=== PATIENT | female | born 1945 ===

== ENCOUNTER 2017-06-06 14:11 | Inpatient (IN) | payer MEDICARE, OTHER ==
[2017-06-06 14:11] VITALS: PULSE 139; BMI 37.2
[2017-06-06] MEDS ORDERED: Cefepime IV 1 gm in Dextrose 1 GM/50 ML BAG IVPB STA (15:26)
[2017-06-06] MEDS ORDERED: metroNIDAZOLE IV 500 mg/100 ml 500 MG/100 ML BAG IV SCH (15:30)
[2017-06-06] MEDS ORDERED: Morphine 4 MG/ML VIAL ONE (15:42)
[2017-06-06 15:49] LABS: BASO % 0.7 % (0.0-2.0); EOS # 0.1 K/uL (0.0-0.7); HEMOGLOBIN 10.7 g/dL (11.0-16.0); LYMPH # 1.6 K/uL (1.0-4.3); LYMPH % 22.9 % (20.0-40.0); MEAN CELL VOLUME 95.9 fL (81.0-99.0); MEAN CORPUSCULAR HEMOGLOBIN 32.4 pg (27.0-31.0); MEAN CORPUSCULAR HGB CONC 33.8 g/dL (33.0-37.0); MEAN PLATELET VOLUME 8.7 fL (7.2-11.7); MONO # 0.4 K/uL (0.0-0.8); MONO % 6.5 % (0.0-10.0); NEUT # 4.6 K/uL (1.8-7.0); NEUT % 67.9 % (50.0-75.0); NRBC % 0.1 % (0.0-2.0); RBC 3.32 Mil/uL (3.80-5.20); RED CELL DISTRIBUTION WIDTH 13.7 % (11.5-14.5); WHITE BLOOD COUNT 6.8 K/uL (4.8-10.8)
[2017-06-06 15:51] LABS: URINE BILIRUBIN NEGATIVE (NEGATIVE); URINE BLOOD NEGATIVE (NEGATIVE); URINE CLARITY Clear (Clear); URINE COLOR Straw (YELLOW); URINE GLUCOSE (UA) NORMAL (Normal); URINE LEUKOCYTE ESTERASE NEG Leu/uL (Negative); URINE PROTEIN NEGATIVE (NEGATIVE); URINE UROBILINOGEN NORMAL mg/dL (0.2-1.0)
[2017-06-06 15:58] LABS: ALB/GLOB RATIO 0.9 (1.0-2.1); ALBUMIN 3.7 g/dL (3.5-5.0); CALCIUM 8.6 mg/dl (8.6-10.4); GFR AFRICAN-AMERICAN > 60; GFR NON-AFRICAN AMERICAN > 60
[2017-06-06 16:04] LABS: ALT/SGPT 18 U/L (9-52); AST/SGOT 34 U/L (14-36); BLOOD UREA NITROGEN 24 mg/dL (7-17)
[2017-06-06 16:10] LABS: B-TYPE NATRIURETIC PEPTIDE 342 pg/mL (0-900)
[2017-06-06] MEDS ORDERED: Enoxaparin 40 mg Syringe SC STA (16:37)
--- NOTE | 2017-06-06 16:48 | C.PDOC ---
History Of Present Illness 71 year old female presents to the emergency department for right greater than left leg swelling. Patient has a history of CHF, right greater than left leg lymph edema. Doctor Roger (former staff) is present at bedside. Time Seen by Provider: 06/06/17 15:09 Chief Complaint (Nursing): Abnormal Skin Integrity History Per: Patient History/Exam Limitations: no limitations Location Of Injury: Right: Leg (right greater than left leg swelling) Quality Of Symptoms: Swollen Past Medical History Vital Signs: Last Vital Signs Temp 98.7 F 06/06/17 18:20 Pulse 69 06/06/17 18:20 Resp 18 06/06/17 18:20 BP 131/61 06/06/17 18:20 Pulse Ox 97 06/06/17 18:20 - Medical History PMH: CHF, HTN, Chronic Kidney Disease Other PMH: Right greater than left lymph edema. Surgical History: Cholecystectomy Family History: States: No Known Family Hx - Social History Hx Alcohol Use: No Hx Substance Use: No - Immunization History Hx Tetanus Toxoid Vaccination: Yes Hx Influenza Vaccination: Yes Hx Pneumococcal Vaccination: Yes Review Of Systems Except As Marked, All Systems Reviewed And Found Negative. Musculoskeletal: Positive for: Leg Pain (swelling) Physical Exam - Physical Exam Appears: Other (obese elderly female) Skin: Other (excoriation on right leg, chronic dermatitic changes but not consistent with cellulitis) Neck: Other (jugular vein distention) Respiratory: Rales (bilaterally S3) Gastrointestinal/Abdominal: Other (obese) Extremity: Swelling (right greater than left swelling), Other (4/4 pitting edema ) Extremity: Right: Other (excoriation on right leg ) ED Course And Treatment - Laboratory Results Result Diagrams: 06/06/17 15:35 06/06/17 15:35 Lab Interpretation: Normal (trop neg, BNP neg.) ECG: Interpreted By Me ECG Rhythm: Sinus Rhythm ECG Interpretation: Normal Rate From EC O2 Sat by Pulse Oximetry: 97 Pulse Ox Interpretation: Normal - Radiology CXR: Interpreted by Me CXR Interpretation: Yes: Heart Size (+ megaly), Other (+CHF) Progress Note: lasix, abx, lovenox SQ Reevaluation Time: 16:50 Reassessment Condition: Improved - Physician Consult Information Outcome Of Conversation: 1630: dw Dr. Wilson Bishop, ok to admit, recommended additional lasix and Lovenox SQ pending US in AM to r/o DVT R leg. 1600: d/w Dr. Sandhu, ID consult, gave abx recommendations. Medical Decision Making Medical Decision Making: Plan: EKG BNP CMP Troponin CBC D-Dimer Partial Thromboplastin Time Prothrombin Time XR Chest One-View Maxipime 1gm in 50ml IV Flagyl 500mg in 100ml IV Lasix 40mg IVP Lovenox 70mg SC Morphine 4mg IVP Blood Culture Urinalysis Disposition Doctor Will See Patient In The: Hospital Counseled Patient/Family Regarding: Studies Performed, Diagnosis - Disposition Disposition: HOSPITALIZED Disposition Time: 16:53 Condition: GOOD - Clinical Impression Clinical Impression: CHF (congestive heart failure), Leg edema - Scribe Statement The provider has reviewed the documentation as recorded by the Scribe (Izaiah Verduzco) Provider Attestation: All medical record entries made by the Scribe were at my direction and personally dictated by me. I have reviewed the chart and agree that the record accurately reflects my personal performance of the history, physical exam, medical decision making, and the department course for this patient. I have also personally directed, reviewed, and agree with the discharge instructions and disposition.
[2017-06-06] MEDS ORDERED: Enoxaparin 80 mg Syringe ONE (16:53)
[2017-06-06 17:22] LABS: PROTHROMBIN TIME 11.1 SECONDS (9.7-12.2)
--- NOTE | 2017-06-06 17:42 | RAD ---
PROCEDURE: CHEST RADIOGRAPH, 1 VIEW HISTORY: SOB COMPARISON: Chest radiographs 01/16/2016. FINDINGS: LUNGS: AC opacity seen left hemithorax without air bronchograms or even pleural effusion grossly evident. This may be a function of technique and body habitus is a patient is slightly rotated toward the right. Clinically correlate further. PLEURA: No pneumothorax or pleural fluid seen. CARDIOVASCULAR: Prominent cardiac silhouette with mild pulmonary vascular congestion suggested. OSSEOUS STRUCTURES: No significant abnormalities. VISUALIZED UPPER ABDOMEN: Normal. OTHER FINDINGS: None. IMPRESSION: Pulmonary vascular congestion is suspected, and therefore is active CHF. Asymmetric left hemithorax opacity may reflect pulmonary alveolitis even though air bronchograms are not clearly evident and follow-up radiograph or chest CT should be considered.
[2017-06-06] MEDS: Metoprolol Succinate 25 mg XL Tab PO SCH (19:50)
[2017-06-06] MEDS: (Novolog) Insulin Aspart, Recombinant 100 u/ml 10 ml vial SC SCH (21:40)
--- NOTE | 2017-06-07 00:53 | HP ---
HISTORY OF PRESENT ILLNESS: A 71-year-old female was brought in with the history of increasing skin exfoliation in both the legs and increasing edema over the past two weeks. The patient has a history of congestive heart failure, paroxysmal atrial fibrillation, hypertension and diabetes. She has been followed by multiple physicians including building admin, scraper hand and myself. She has a previous catheterization done, which had shown no CAD and normal LV systolic function. She has a diastolic heart failure. For past two weeks, she was having increasing ankle edema and exfoliation of the skin with cellulitis, came to the emergency room and was subsequently admitted. PAST MEDICAL HISTORY: She has a history of hypertension, congestive heart failure diastolic, edema, recurrent admission for congestive heart failure, two episodes of atrial fibrillation, also had patient requiring intubation during the congestive heart failure, twice she was admitted in [facility]. She also has a cholecystectomy. PERSONAL HISTORY: She does not smoke, does not drink. ALLERGIES: DENIED. FAMILY HISTORY: She is , lives with her . Positive for diabetes. REVIEW OF SYSTEMS: GENERAL: Generalized weakness; even getting out of bed to chair is extremely short of breath. Excoriation of both legs, right more. NECK: No lymphadenopathy. PULMONARY: Shortness of breath. Cough. No hemoptysis. GI: Negative for hematemesis or melena. : Negative for hematuria. She has been seen by Dr. Franco, the scraper hand. MUSCULOSKELETAL: History of back pain and leg pains. NEUROLOGIC: Negative for TIAs and CVAs. PSYCH: Increasing confusion and loss of memory. SKIN: Increasing exfoliation in both the legs, cellulitis. PHYSICAL EXAMINATION: GENERAL: Shows elderly female who is conscious, alert, well oriented, obese; chronically sick looking, but in no distress. VITAL SIGNS: She is 5 feet and weighs 238 pounds. She has gained more than 20 pounds over the past two weeks. Her blood pressure is 157/76, heart rate of 103, respiratory rate of 18, temperature of 97.6. O2 sat is 98% on room air. HEENT: Head is normocephalic. Eyes, no pallor, no icterus. NECK: Supple. LUNGS: Shows bibasilar rales. HEART: PMI is not localized. S1, S2 is distant. No definite gallops or murmur. ABDOMEN: Distended. EXTREMITIES: 3 to 4+ pitting edema is noted. The legs are covered with dressing. NEUROLOGICAL: Awake, alert, and oriented x3. PSYCH: No evidence of depression. LABORATORY DATA: Hemoglobin is 10.7, BUN is 24, creatinine is 0.9. Blood sugar is 197. Chest x-ray had shown vascular congestion. EKG had shown normal sinus rhythm, within normal limits. Poor R-wave progression, may be lead misplacement. ASSESSMENT: A 71-year-old female with history of congestive heart failure, bilateral exfoliation of the skin, possible cellulitis. PLAN: To IV diuretics, bed rest, oxygen. Continue with the KRYSTAL inhibitors. Nephrology and ID followup. Care of plan was explained to the patient's . Wilson Bishop MD
[2017-06-07 08:18] LABS: CALCIUM 8.4 mg/dl (8.6-10.4)
[2017-06-07] MEDS: metOLazone 5 MG TAB PO SCH (10:09)
[2017-06-07] MEDS: Enoxaparin 80 mg Syringe SC SCH (10:40)
[2017-06-07] MEDS: (Novolog) Insulin Aspart, Recombinant 100 u/ml 10 ml vial SC SCH ×2 (10:41→21:25)
[2017-06-07] MEDS: Metoprolol Succinate 25 mg XL Tab PO SCH ×2 (10:41→17:20)
[2017-06-07] MEDS: Insulin Detemir 100 units/ml Vial (Levemir) SC SCH (10:42)
--- NOTE | 2017-06-07 13:19 | VASCLAB ---
PROCEDURE: Lower Extremity Venous Duplex Exam. HISTORY: ? R>L DVT PRIORS: Lower extremity ultrasound dated 01/13/2016. TECHNIQUE: Bilateral common femoral, femoral, popliteal and posterior tibial, peroneal and great saphenous veins were evaluated. Flow was assessed with color Doppler, compressibility, assessment of phasic flow and augmentation response. Report prepared by Dez Joy, RICCI, RVT FINDINGS: RIGHT: 1. Common Femoral Vein: 1.1. Compressibility - Fully compressible: Thrombus - None : Flow - Phasic: Augmentation -Normal: Reflux - None. 2. Femoral Vein: 2.1. Compressibility - Fully compressible: Thrombus - None : Flow - Phasic: Augmentation -Normal: Reflux - None. 3. Popliteal Vein: 3.1. Compressibility - Fully compressible: Thrombus - None : Flow - Phasic: Augmentation -Normal: Reflux - None. 4. Posterior Tibial Vein: 4.1. Compressibility - : Thrombus - : Flow - : Augmentation -: Reflux - . 5. Peroneal Vein: 5.1. Compressibility - : Thrombus - : Flow - : Augmentation -: Reflux - . 6. Great Saphenous Vein: 6.1. Compressibility - Fully compressible: Thrombus - None: Flow - Phasic: Augmentation - Normal: Reflux - None. LEFT: 1. Common Femoral Vein: 1.1. Compressibility - Fully compressible: Thrombus - None: Flow - Phasic: Augmentation -Normal: Reflux - None. 2. Femoral Vein: 2.1. Compressibility - Fully compressible: Thrombus - None: Flow - Phasic: Augmentation -Normal: Reflux - None. 3. Popliteal Vein: 3.1. Compressibility - Fully compressible: Thrombus - None : Flow - Phasic: Augmentation -Normal: Reflux - None. 4. Posterior Tibial Vein: 4.1. Compressibility - Fully compressible: Thrombus - None: Flow - Phasic: Augmentation -Normal: Reflux - None. 5. Peroneal Vein: 5.1. Compressibility - : Thrombus - : Flow - : Augmentation -: Reflux - . 6. Great Saphenous Vein: 6.1. Compressibility - Fully compressible: Thrombus - None: Flow - Phasic: Augmentation - Normal: Reflux - None. OTHER FINDINGS: Right: Due to bandage on the calf wound, the peroneal and posterior tibial vein were not visualized. Left: Due to swelling in the calf, the left peroneal vein was not visualized. IMPRESSION: Right: No evidence of deep or superficial vein thrombosis of the right lower extremity. Normal valve function noted of the right side. Left: No evidence of deep or superficial vein thrombosis of the left lower extremity. Normal valve function noted of the left side.
--- NOTE | 2017-06-07 13:50 | CP.PCM.PN ---
Subjective - Date & Time of Evaluation Date of Evaluation: 06/07/17 Time of Evaluation: 13:49 - Subjective Subjective: edema & cellulitis +.labs noted. Objective - Vital Signs/Intake and Output Vital Signs (last 24 hours): Temp Pulse Resp BP Pulse Ox 98.1 F 70 22 128/67 93 L 06/07/17 07:07 06/07/17 08:56 06/07/17 07:07 06/07/17 10:41 06/07/17 07:07 Intake and Output: 06/07/17 06/07/17 06:59 18:59 Intake Total 200 Output Total 800 Balance -600 - Medications Medications: Current Medications Aspirin (Ecotrin) 81 mg PO DAILY [facility] Last Admin: 06/07/17 10:41 Dose: 81 mg Enoxaparin Sodium (Lovenox) 70 mg SC DAILY [facility] Last Admin: 06/07/17 10:40 Dose: 70 mg Furosemide (Lasix) 40 mg IVP BID [facility] Last Admin: 06/07/17 10:41 Dose: 40 mg Metronidazole (Flagyl) 500 mg in 100 mls @ 100 mls/hr IV STAT [facility] PRN Reason: Protocol Last Admin: 06/06/17 17:41 Dose: 100 mls/hr Insulin Aspart (Novolog) 13 unit SC [facility] Last Admin: 06/07/17 10:41 Dose: 13 unit Insulin Detemir (Levemir) 14 unit SC DAILY [facility] Last Admin: 06/07/17 10:42 Dose: 14 unit Metolazone (Zaroxolyn) 5 mg PO MWF [facility] Last Admin: 06/07/17 10:09 Dose: 5 mg Metoprolol Succinate (Toprol Xl) 25 mg PO BID [facility] Last Admin: 06/07/17 10:41 Dose: 25 mg Oxycodone/Acetaminophen (Percocet 5/325 Mg Tab) 1 tab PO TID PRN PRN Reason: Pain, moderate (4-7) Stop: 06/10/17 10:01 - Labs Labs: 06/06/17 15:35 06/07/17 07:43 PT 11.1 SECONDS (9.7-12.2) 06/06/17 17:52 INR 1.0 06/06/17 17:52 APTT 30 SECONDS (21-34) 06/06/17 17:52 - Constitutional Appears: No Acute Distress, Chronically Ill - Head Exam Head Exam: NORMOCEPHALIC - Eye Exam Eye Exam: Normal appearance - ENT Exam ENT Exam: Normal Exam - Respiratory Exam Respiratory Exam: Rales - Cardiovascular Exam Cardiovascular Exam: REGULAR RHYTHM - GI/Abdominal Exam GI & Abdominal Exam: Soft - Extremities Exam Extremities Exam: Pedal Edema - Neurological Exam Neurological Exam: Alert, Oriented x3 Assessment and Plan - Assessment and Plan (Free Text) Assessment: edema better.will ct iv lasix.await id & vascular input.
--- NOTE | 2017-06-07 15:12 | CP.PCM.CON ---
History of Present Illness - History of Present Illness History of Present Illness: PGY-[address] Nunez. Mrs Duran is a 71 year old female with a past medical history of diabetes, diastolic CHF, lymphedema, HTN who presented to [facility] ER with right leg swelling. Vascular has been consulted to evaluate any vessel pathology that could be contributing to her LE ulcer formation. Some of the history was provided by her , Dr Duran who is a retired vascular surgeon. Patient states there is an ulcer in the anterior portion of her right leg which she correlates with worsening of her right leg swelling. She first noticed skin changes 3 years ago after she suffered a fall. She states the ulcer re-surfaced on the flight back from [facility] this past April. She noticed some weeping and drainage from ulcer site. She says in the past she had an ulcer at the same site which was treated with antibiotics and lasix. Her electrolysis needle operator is Dr Wilson Bishop and ID on the case is Dr Sandhu. PMHx: diabetes type II, diastolic CHF, lymphedema, HTN PSHx: Cholecystectomy Allergies: NKA FamHx: Denies SocialHx: Denies tobacco history, alcohol use, lives with at home Review of Systems - Constitutional Constitutional: absent: Chills, Fever - EENT Eyes: absent: Change in Vision - Cardiovascular Cardiovascular: Dyspnea on Exertion. absent: Chest Pain, Chest Pain at Rest, Diaphoresis - Respiratory Respiratory: Dyspnea on Exertion, Wheezing, Snoring - Gastrointestinal Gastrointestinal: absent: Abdominal Pain, Bloating, Constipation, Diarrhea - Genitourinary Genitourinary: absent: Dysuria - Integumentary Integumentary: Lesions, Skin Ulcer, Wounds. absent: Bleeding Lesions - Neurological Neurological: absent: Confusion Past Patient History - Past Medical History & Family History Past Medical History?: Yes - Past Social History Smoking Status: Never Smoked - CARDIAC Hx Congestive Heart Failure: Yes Hx Hypertension: Yes - PULMONARY Hx Respiratory Disorders: No - NEUROLOGICAL Hx Neurological Disorder: No - HEENT Hx HEENT Problems: No - RENAL Hx Chronic Kidney Disease: Yes - ENDOCRINE/METABOLIC Hx Endocrine Disorders: Yes Hx Diabetes Mellitus Type 2: Yes - HEMATOLOGICAL/ONCOLOGICAL Hx Blood Disorders: No - INTEGUMENTARY Hx Dermatological Problems: Yes Hx Cellulitis: Yes - MUSCULOSKELETAL/RHEUMATOLOGICAL Hx Musculoskeletal Disorders: Yes Hx Falls: No Hx Osteoarthritis: Yes - GASTROINTESTINAL Hx Gastrointestinal Disorders: No - GENITOURINARY/GYNECOLOGICAL Hx Genitourinary Disorders: No - PSYCHIATRIC Hx Substance Use: No - SURGICAL HISTORY Hx Cholecystectomy: Yes - ANESTHESIA Hx Anesthesia: Yes Hx Anesthesia Reactions: No Hx Malignant Hyperthermia: No Has any member of the family had a problem w/ anesthesia?: No Meds Allergies/Adverse Reactions: Allergies Allergy/AdvReac Type Severity Reaction Status Date / Time No Known Allergies Allergy Unverified 01/11/16 20:03 - Medications Medications: Current Medications Aspirin (Ecotrin) 81 mg PO DAILY [facility] Last Admin: 06/07/17 10:41 Dose: 81 mg Enoxaparin Sodium (Lovenox) 70 mg SC DAILY [facility] Last Admin: 06/07/17 10:40 Dose: 70 mg Furosemide (Lasix) 40 mg IVP BID [facility] Last Admin: 06/07/17 10:41 Dose: 40 mg Metronidazole (Flagyl) 500 mg in 100 mls @ 100 mls/hr IV STAT [facility] PRN Reason: Protocol Last Admin: 06/06/17 17:41 Dose: 100 mls/hr Insulin Aspart (Novolog) 13 unit SC [facility] Last Admin: 06/07/17 10:41 Dose: 13 unit Insulin Detemir (Levemir) 14 unit SC DAILY [facility] Last Admin: 06/07/17 10:42 Dose: 14 unit Metolazone (Zaroxolyn) 5 mg PO MWF [facility] Last Admin: 06/07/17 10:09 Dose: 5 mg Metoprolol Succinate (Toprol Xl) 25 mg PO BID [facility] Last Admin: 06/07/17 10:41 Dose: 25 mg Oxycodone/Acetaminophen (Percocet 5/325 Mg Tab) 1 tab PO TID PRN PRN Reason: Pain, moderate (4-7) Stop: 06/10/17 10:01 Physical Exam - Constitutional Appears: Well, No Acute Distress, Other (obese) - Head Exam Head Exam: ATRAUMATIC, NORMAL INSPECTION - Eye Exam Eye Exam: EOMI Pupil Exam: PERRL - ENT Exam ENT Exam: Mucous Membranes Moist - Neck Exam Neck exam: Positive for: Normal Inspection. Negative for: Lymphadenopathy, Tenderness - Respiratory Exam Respiratory Exam: Clear to Auscultation Bilateral, Rales, NORMAL BREATHING PATTERN. absent: Rhonchi, Wheezes - Cardiovascular Exam Cardiovascular Exam: REGULAR RHYTHM, JVD, +S1, +S2, Systolic Murmur. absent: Bradycardia, Tachycardia - GI/Abdominal Exam GI & Abdominal Exam: Normal Bowel Sounds, Soft. absent: Tenderness - Extremities Exam Extremities exam: Positive for: calf tenderness, normal capillary refill, pedal edema, tenderness, pedal pulses present Additional comments: excoriation on right leg, chronic dermatitic changes but not consistent with cellulitis right greater than left swelling 4/4 pitting edema - Neurological Exam Neurological exam: Oriented x3 - Skin Skin Exam: Warm Additional comments: as stated above Results - Vital Signs Recent Vital Signs: Last Vital Signs Temp 98.1 F 06/07/17 07:07 Pulse 70 06/07/17 08:56 Resp 22 06/07/17 07:07 BP 128/67 06/07/17 10:41 Pulse Ox 93 L 06/07/17 07:07 - Labs Result Diagrams: 06/06/17 15:35 06/07/17 07:43 Labs: Laboratory Results - last 24 hr 06/06/17 06/06/17 06/06/17 15:35 15:35 15:41 WBC 6.8 RBC 3.32 L Hgb 10.7 L Hct 31.8 L MCV 95.9 D MCH 32.4 H MCHC 33.8 RDW 13.7 Plt Count 285 MPV 8.7 Neut % (Auto) 67.9 Lymph % (Auto) 22.9 [place] % (Auto) 6.5 Eos % (Auto) 2.0 Baso % (Auto) 0.7 Neut # (Auto) 4.6 Lymph # (Auto) 1.6 Webster # (Auto) 0.4 Eos # (Auto) 0.1 Baso # (Auto) 0.0 PT INR APTT Sodium 139 Potassium 5.4 H Chloride 104 Carbon Dioxide 22 Anion Gap 18 BUN 24 H Creatinine 0.9 Est GFR ( Amer) > 60 Est GFR (Non-Af Amer) > 60 POC Glucose (mg/dL) Random Glucose 197 H Calcium 8.6 Total Bilirubin 0.7 AST 34 ALT 18 Alkaline Phosphatase 99 Troponin I < 0.0120 NT-Pro-B Natriuret Pep 342 Total Protein 8.0 Albumin 3.7 Globulin 4.3 H Albumin/Globulin Ratio 0.9 L Urine Color Straw Urine Clarity Clear Urine pH 5.0 Ur Specific [place] 1.006 Urine Protein Negative Urine Glucose (UA) Normal Urine Ketones Negative Urine Blood Negative Urine Nitrate Negative Urine Bilirubin Negative Urine Urobilinogen Normal Ur Leukocyte Esterase Neg Urine WBC (Auto) < 1 06/06/17 06/06/17 06/07/17 17:52 21:31 02:10 WBC RBC Hgb Hct MCV MCH MCHC RDW Plt Count MPV Neut % (Auto) Lymph % (Auto) [place] % (Auto) Eos % (Auto) Baso % (Auto) Neut # (Auto) Lymph # (Auto) [place] # (Auto) Eos # (Auto) Baso # (Auto) PT 11.1 INR 1.0 APTT 30 Sodium Potassium Chloride Carbon Dioxide Anion Gap BUN Creatinine Est GFR ( Amer) Est GFR (Non-Af Amer) POC Glucose (mg/dL) 204 H 92 Random Glucose Calcium Total Bilirubin AST ALT Alkaline Phosphatase Troponin I NT-Pro-B Natriuret Pep Total Protein Albumin Globulin Albumin/Globulin Ratio Urine Color Urine Clarity Urine pH Ur Specific [place] Urine Protein Urine Glucose (UA) Urine Ketones Urine Blood Urine Nitrate Urine Bilirubin Urine Urobilinogen Ur Leukocyte Esterase Urine WBC (Auto) 06/07/17 06/07/17 06/07/17 06:17 07:43 11:06 WBC RBC Hgb Hct MCV MCH MCHC RDW Plt Count MPV Neut % (Auto) Lymph % (Auto) [place] % (Auto) Eos % (Auto) Baso % (Auto) Neut # (Auto) Lymph # (Auto) [place] # (Auto) Eos # (Auto) Baso # (Auto) PT INR APTT Sodium 139 Potassium 5.0 Chloride 107 Carbon Dioxide 24 Anion Gap 14 BUN 24 H Creatinine 1.1 Est GFR ( Amer) 59 Est GFR (Non-Af Amer) 49 POC Glucose (mg/dL) 163 H 202 H Random Glucose 125 H Calcium 8.4 L Total Bilirubin AST ALT Alkaline Phosphatase Troponin I NT-Pro-B Natriuret Pep Total Protein Albumin Globulin Albumin/Globulin Ratio Urine Color Urine Clarity Urine pH Ur Specific [place] Urine Protein Urine Glucose (UA) Urine Ketones Urine Blood Urine Nitrate Urine Bilirubin Urine Urobilinogen Ur Leukocyte Esterase Urine WBC (Auto) Assessment & Plan (1) Leg edema Assessment and Plan: -Right leg edema with skin changes likely 2/2 to CHF -Duplex scan does not show any evidence of LE thrombosis -F/U arterial PVR of right lower extremity -Apply silvadene cream and wrap wound site tightly -Advise to apply compressive stocking -Continue diuresis -Continue abx Discussed with Dr Nunez. Status: Acute Priority: High
--- NOTE | 2017-06-07 18:20 | CARD ---
APPROVED REPORT EKG Measurement Heart [id number] SD [id number] <Conclusion> Normal sinus rhythm Baseline artifact
[2017-06-07] MEDS: Oxycodone/Acetaminophen 5/325 mg Tab PO PRN (22:10)
--- NOTE | 2017-06-08 08:16 | CP.PCM.PN ---
Subjective - Date & Time of Evaluation Date of Evaluation: 06/08/17 Time of Evaluation: 08:13 - Subjective Subjective: PGY-1 surgery progress note for Dr Nunez. No acute events noted overnight. Patient had lower right extremity wrapped in kerlix. She stated she still had pain. She was able to walk herself with a walker to the bathroom. She said her breathing has improved a little. Objective - Vital Signs/Intake and Output Vital Signs (last 24 hours): Temp Pulse Resp BP Pulse Ox 98.0 F 70 20 132/65 95 06/07/17 23:00 06/07/17 23:40 06/07/17 23:00 06/07/17 23:00 06/07/17 23:00 Intake and Output: 06/08/17 06/08/17 06:59 18:59 Intake Total 700 Output Total 1526 Balance -826 - Medications Medications: Current Medications Aspirin (Ecotrin) 81 mg PO DAILY [facility] Last Admin: 06/07/17 10:41 Dose: 81 mg Collagenase (Santyl) 1 gm TOP DAILY [facility] Enoxaparin Sodium (Lovenox) 70 mg SC DAILY [facility] Last Admin: 06/07/17 10:40 Dose: 70 mg Furosemide (Lasix) 40 mg IVP BID [facility] Last Admin: 06/07/17 17:20 Dose: 40 mg Insulin Aspart (Novolog) 13 unit SC [facility] Last Admin: 06/07/17 21:25 Dose: 13 unit Insulin Detemir (Levemir) 14 unit SC DAILY [facility] Last Admin: 06/07/17 10:42 Dose: 14 unit Metolazone (Zaroxolyn) 5 mg PO MWF [facility] Last Admin: 06/07/17 10:09 Dose: 5 mg Metoprolol Succinate (Toprol Xl) 25 mg PO BID [facility] Last Admin: 06/07/17 17:20 Dose: 25 mg Oxycodone/Acetaminophen (Percocet 5/325 Mg Tab) 1 tab PO TID PRN PRN Reason: Pain, moderate (4-7) Stop: 06/10/17 10:01 Last Admin: 06/07/17 22:10 Dose: 1 tab - Labs Labs: 06/06/17 15:35 06/07/17 07:43 PT 11.1 SECONDS (9.7-12.2) 06/06/17 17:52 INR 1.0 06/06/17 17:52 APTT 30 SECONDS (21-34) 06/06/17 17:52 - Additional Findings Additional findings: - Constitutional Appears: Well, No Acute Distress, Other (obese) - Head Exam Head Exam: ATRAUMATIC, NORMAL INSPECTION - Eye Exam Eye Exam: EOMI Pupil Exam: PERRL - ENT Exam ENT Exam: Mucous Membranes Moist - Neck Exam Neck exam: Positive for: Normal Inspection. Negative for: Lymphadenopathy, Tenderness - Respiratory Exam Respiratory Exam: Clear to Auscultation Bilateral, Rales, NORMAL BREATHING PATTERN. absent: Rhonchi, Wheezes - Cardiovascular Exam Cardiovascular Exam: REGULAR RHYTHM, JVD, +S1, +S2, Systolic Murmur. absent: Bradycardia, Tachycardia - GI/Abdominal Exam GI & Abdominal Exam: Normal Bowel Sounds, Soft. absent: Tenderness - Extremities Exam Extremities exam: Positive for: calf tenderness, normal capillary refill, pedal edema, tenderness, pedal pulses present Additional comments: excoriation on right leg, chronic dermatitic changes but not consistent with cellulitis right greater than left swelling 4/4 pitting edema - Neurological Exam Neurological exam: Oriented x3 - Skin Skin Exam: Warm Additional comments: as stated above Assessment and Plan (1) Leg edema Status: Acute - Assessment and Plan (Free Text) Assessment: (1) Leg edema Assessment and Plan: -Right leg edema with skin changes likely 2/2 to CHF -Duplex scan does not show any evidence of LE thrombosis -F/U arterial PVR of right lower extremity -Apply silvadene cream and wrap wound site tightly -Advise to apply compressive stocking -Continue diuresis -Continue abx Discussed with Dr Nunez. Status: Acute Priority: High
[2017-06-08 08:20] LABS: BLOOD UREA NITROGEN 22 mg/dL (7-17); CALCIUM 8.5 mg/dl (8.6-10.4); GFR AFRICAN-AMERICAN > 60; GFR NON-AFRICAN AMERICAN 55
[2017-06-08] MEDS ORDERED: Collagenase 250 Units/gm Ointment(30 gm) TOP SCH (10:00)
--- NOTE | 2017-06-08 10:02 | CP.PCM.CON ---
History of Present Illness - History of Present Illness History of Present Illness: Mrs Duran is a 71 year old female with a past medical history of diabetes, diastolic CHF, lymphedema, HTN who presented to [facility] ER with right leg swelling. Vascular has been consulted to evaluate any vessel pathology that could be contributing to her LE ulcer formation. Patient states there is an ulcer in the anterior portion of her right leg which she correlates with worsening of her right leg swelling. She first noticed skin changes 3 years ago after she suffered a fall. She states the ulcer re-surfaced on the flight back from [facility] this past April. She noticed some weeping and drainage from ulcer site. She says in the past she had an ulcer at the same site which was treated with antibiotics and lasix. Her eligibility supervisor is Dr Wilson Bishop and ID on the case is Dr Sandhu. No prior hx of kidney disease No proteinuria on ua Duplex LE neg for dvt PMHx: diabetes type II, diastolic CHF, lymphedema, HTN PSHx: Cholecystectomy Allergies: NKA FamHx: Denies SocialHx: Denies tobacco history, alcohol use, lives with at home Review of Systems - Review of Systems All systems: reviewed and no additional remarkable complaints except - Constitutional Constitutional: Fatigue - Cardiovascular Cardiovascular: Dyspnea on Exertion, Leg Edema - Respiratory Respiratory: Dyspnea - Genitourinary Genitourinary: absent: As Per HPI, Change in Urinary Stream, Difficulty Urinating, Dysuria, Flank Pain, Hematuria, Pyuria, Nocturia, Urinary Incontinence, Urinary Frequency, Urinary Hesitance, Urinary Urgency, Voiding Freq/Small Amts, Freq UTI, Hx Renal/Bladder Calculi, Hx /Renal Surgery, Bladder Distension, Other Past Patient History - Past Medical History & Family History Past Medical History?: Yes - Past Social History Smoking Status: Never Smoked - CARDIAC Hx Congestive Heart Failure: Yes Hx Hypertension: Yes - PULMONARY Hx Respiratory Disorders: No - NEUROLOGICAL Hx Neurological Disorder: No - HEENT Hx HEENT Problems: No - RENAL Hx Chronic Kidney Disease: Yes - ENDOCRINE/METABOLIC Hx Endocrine Disorders: Yes Hx Diabetes Mellitus Type 2: Yes - HEMATOLOGICAL/ONCOLOGICAL Hx Blood Disorders: No - INTEGUMENTARY Hx Dermatological Problems: Yes Hx Cellulitis: Yes - MUSCULOSKELETAL/RHEUMATOLOGICAL Hx Musculoskeletal Disorders: Yes Hx Falls: No Hx Osteoarthritis: Yes - GASTROINTESTINAL Hx Gastrointestinal Disorders: No - GENITOURINARY/GYNECOLOGICAL Hx Genitourinary Disorders: No - PSYCHIATRIC Hx Substance Use: No - SURGICAL HISTORY Hx Cholecystectomy: Yes - ANESTHESIA Hx Anesthesia: Yes Hx Anesthesia Reactions: No Hx Malignant Hyperthermia: No Has any member of the family had a problem w/ anesthesia?: No Meds Allergies/Adverse Reactions: Allergies Allergy/AdvReac Type Severity Reaction Status Date / Time No Known Allergies Allergy Unverified 01/11/16 20:03 - Medications Medications: Current Medications Aspirin (Ecotrin) 81 mg PO DAILY [facility] Last Admin: 06/07/17 10:41 Dose: 81 mg Collagenase (Santyl) 1 gm TOP DAILY [facility] Enoxaparin Sodium (Lovenox) 70 mg SC DAILY [facility] Last Admin: 06/07/17 10:40 Dose: 70 mg Furosemide (Lasix) 40 mg IVP BID [facility] Last Admin: 06/07/17 17:20 Dose: 40 mg Insulin Aspart (Novolog) 13 unit SC [facility] Last Admin: 06/07/17 21:25 Dose: 13 unit Insulin Detemir (Levemir) 14 unit SC DAILY [facility] Last Admin: 06/07/17 10:42 Dose: 14 unit Metolazone (Zaroxolyn) 5 mg PO MWF [facility] Last Admin: 06/07/17 10:09 Dose: 5 mg Metoprolol Succinate (Toprol Xl) 25 mg PO BID [facility] Last Admin: 06/07/17 17:20 Dose: 25 mg Oxycodone/Acetaminophen (Percocet 5/325 Mg Tab) 1 tab PO TID PRN PRN Reason: Pain, moderate (4-7) Stop: 06/10/17 10:01 Last Admin: 06/07/17 22:10 Dose: 1 tab Physical Exam - Constitutional Appears: No Acute Distress, Chronically Ill (obese) - Head Exam Head Exam: NORMAL INSPECTION, NORMOCEPHALIC - Eye Exam Eye Exam: Normal appearance, PERRL - ENT Exam ENT Exam: Mucous Membranes Moist, Normal Exam - Neck Exam Neck exam: Positive for: Normal Inspection - Respiratory Exam Respiratory Exam: Decreased Breath Sounds, NORMAL BREATHING PATTERN - Cardiovascular Exam Cardiovascular Exam: REGULAR RHYTHM, RRR - GI/Abdominal Exam GI & Abdominal Exam: Diminished Bowel Sounds, Distended, Soft - Extremities Exam Extremities exam: Positive for: pedal edema (b/l edema, R>L) - Neurological Exam Neurological exam: Alert, Oriented x3 - Psychiatric Exam Psychiatric exam: Normal Affect, Normal Mood - Skin Skin Exam: Normal Color, Warm Results - Vital Signs Recent Vital Signs: Last Vital Signs Temp 97.6 F 06/08/17 08:35 Pulse 68 06/08/17 08:35 Resp 20 06/08/17 08:35 BP 127/65 06/08/17 08:35 Pulse Ox 96 06/08/17 08:35 - Labs Result Diagrams: 06/06/17 15:35 06/08/17 07:56 Labs: Laboratory Results - last 24 hr 06/07/17 06/07/17 06/07/17 11:06 16:10 21:02 Sodium Potassium Chloride Carbon Dioxide Anion Gap BUN Creatinine Est GFR ( Amer) Est GFR (Non-Af Amer) POC Glucose (mg/dL) 202 H 210 H 124 H Random Glucose Calcium 06/08/17 06/08/17 06/08/17 01:59 06:14 07:56 Sodium 140 Potassium 4.5 Chloride 104 Carbon Dioxide 26 Anion Gap 14 BUN 22 H Creatinine 1.0 Est GFR ( Amer) > 60 Est GFR (Non-Af Amer) 55 POC Glucose (mg/dL) 104 128 H Random Glucose 103 Calcium 8.5 L Assessment & Plan (1) Congestive heart failure (CHF) Status: Acute (2) Leg edema Status: Acute Priority: High (3) Atrial fibrillation with rapid ventricular response Status: Acute - Assessment and Plan (Free Text) Assessment: No proteinuria to suggest renal cause of leg swelling, completely benign ua and nl bmp. check spep and urine microalbumin maintain diuretics per primary team follow chems closely
[2017-06-08] MEDS: Insulin Detemir 100 units/ml Vial (Levemir) SC SCH (10:45)
[2017-06-08] MEDS: (Novolog) Insulin Aspart, Recombinant 100 u/ml 10 ml vial SC SCH ×2 (10:45→22:12)
[2017-06-08] MEDS: Metoprolol Succinate 25 mg XL Tab PO SCH ×2 (10:45→17:16)
[2017-06-08] MEDS: Enoxaparin 80 mg Syringe SC SCH (10:46)
--- NOTE | 2017-06-08 12:18 | CP.PCM.PN ---
Subjective - Date & Time of Evaluation Date of Evaluation: 06/08/17 Time of Evaluation: 12:17 - Subjective Subjective: better.edema less.lost 4 lbs. Objective - Vital Signs/Intake and Output Vital Signs (last 24 hours): Temp Pulse Resp BP Pulse Ox 97.6 F 68 20 123/71 96 06/08/17 08:35 06/08/17 12:03 06/08/17 08:35 06/08/17 10:45 06/08/17 12:03 Intake and Output: 06/08/17 06/08/17 06:59 18:59 Intake Total 700 Output Total 1526 Balance -826 - Medications Medications: Current Medications Aspirin (Ecotrin) 81 mg PO DAILY [facility] Last Admin: 06/08/17 10:45 Dose: 81 mg Collagenase (Santyl) 1 gm TOP DAILY [facility] Enoxaparin Sodium (Lovenox) 70 mg SC DAILY [facility] Last Admin: 06/08/17 10:46 Dose: 70 mg Furosemide (Lasix) 40 mg IVP BID [facility] Last Admin: 06/08/17 10:45 Dose: 40 mg Insulin Aspart (Novolog) 13 unit SC [facility] Last Admin: 06/08/17 10:45 Dose: 13 unit Insulin Detemir (Levemir) 14 unit SC DAILY [facility] Last Admin: 06/08/17 10:45 Dose: 14 unit Metolazone (Zaroxolyn) 5 mg PO MWF [facility] Last Admin: 06/07/17 10:09 Dose: 5 mg Metoprolol Succinate (Toprol Xl) 25 mg PO BID [facility] Last Admin: 06/08/17 10:45 Dose: 25 mg Oxycodone/Acetaminophen (Percocet 5/325 Mg Tab) 1 tab PO TID PRN PRN Reason: Pain, moderate (4-7) Stop: 06/10/17 10:01 Last Admin: 06/07/17 22:10 Dose: 1 tab - Labs Labs: 06/06/17 15:35 06/08/17 07:56 PT 11.1 SECONDS (9.7-12.2) 06/06/17 17:52 INR 1.0 06/06/17 17:52 APTT 30 SECONDS (21-34) 06/06/17 17:52 - Constitutional Appears: No Acute Distress, Chronically Ill - Head Exam Head Exam: NORMOCEPHALIC - ENT Exam ENT Exam: Normal Exam - Respiratory Exam Respiratory Exam: Clear to Ausculation Bilateral - Cardiovascular Exam Cardiovascular Exam: REGULAR RHYTHM, Murmur - GI/Abdominal Exam GI & Abdominal Exam: Soft - Extremities Exam Extremities Exam: Pedal Edema - Neurological Exam Neurological Exam: Alert, Oriented x3 Assessment and Plan - Assessment and Plan (Free Text) Plan: chf,acute on chronica diastolic,better.labs are good.will have dr chasity velazco evaluate.ct antibiotic per dr paige/
[2017-06-08] MEDS ORDERED: Silver Sulfadiazine 1% Cream (20 gm) TOP SCH (12:45)
[2017-06-08] MEDS ORDERED: Clotrimazole/Betamethasone Cream(15 gm) TOP SCH ×2 (12:45→14:15)
--- NOTE | 2017-06-08 12:49 | CP.PCM.CON ---
<Anthony Gregg - Last Filed: 06/08/17 12:45> History of Present Illness - History of Present Illness History of Present Illness: Podiatry Consult Note- Dr. Bishop 71 year old female een at bedside concerning with right leg swelling and itching. Pt is known to attending Dr. Bishop. Patient has had a chronic 3 year history with an ulcer in the anterior portion of her right leg, which she correlates with worsening of her right leg swelling. First presented with skin changes toe the area 3 years ago after she suffered a fall. She states the ulcer re-surfaced on the flight back from [facility] this past April. She noticed some weeping and drainage from ulcer site. She says in the past she had an ulcer at the same site which was treated with antibiotics and lasix. She reports no pain to the area, only itching to eh area of skin changes, absent burning. She deneis recent fever, chills, nausea, vomiting, diarrhea, chest pain , & shortness of breath. PMHx: diabetes type II, diastolic CHF, lymphedema, HTN PSHx: Cholecystectomy Allergies: NKA FamHx: Denies SocialHx: Denies tobacco history, alcohol use, lives with at home Review of Systems - Review of Systems All systems: reviewed and no additional remarkable complaints except Past Patient History - Past Medical History & Family History Past Medical History?: Yes - Past Social History Smoking Status: Never Smoked - CARDIAC Hx Congestive Heart Failure: Yes Hx Hypertension: Yes - PULMONARY Hx Respiratory Disorders: No - NEUROLOGICAL Hx Neurological Disorder: No - HEENT Hx HEENT Problems: No - RENAL Hx Chronic Kidney Disease: Yes - ENDOCRINE/METABOLIC Hx Endocrine Disorders: Yes Hx Diabetes Mellitus Type 2: Yes - HEMATOLOGICAL/ONCOLOGICAL Hx Blood Disorders: No - INTEGUMENTARY Hx Dermatological Problems: Yes Hx Cellulitis: Yes - MUSCULOSKELETAL/RHEUMATOLOGICAL Hx Musculoskeletal Disorders: Yes Hx Falls: No Hx Osteoarthritis: Yes - GASTROINTESTINAL Hx Gastrointestinal Disorders: No - GENITOURINARY/GYNECOLOGICAL Hx Genitourinary Disorders: No - PSYCHIATRIC Hx Substance Use: No - SURGICAL HISTORY Hx Cholecystectomy: Yes - ANESTHESIA Hx Anesthesia: Yes Hx Anesthesia Reactions: No Hx Malignant Hyperthermia: No Has any member of the family had a problem w/ anesthesia?: No Meds Allergies/Adverse Reactions: Allergies Allergy/AdvReac Type Severity Reaction Status Date / Time No Known Allergies Allergy Unverified 01/11/16 20:03 - Medications Medications: Current Medications Aspirin (Ecotrin) 81 mg PO DAILY [facility] Last Admin: 06/08/17 10:45 Dose: 81 mg Betamethasone/Clotrimazole (Lotrisone) 1 gm TOP DAILY [facility] Enoxaparin Sodium (Lovenox) 70 mg SC DAILY [facility] Last Admin: 06/08/17 10:46 Dose: 70 mg Furosemide (Lasix) 40 mg IVP BID [facility] Last Admin: 06/08/17 10:45 Dose: 40 mg Insulin Aspart (Novolog) 13 unit SC [facility] Last Admin: 06/08/17 10:45 Dose: 13 unit Insulin Detemir (Levemir) 14 unit SC DAILY [facility] Last Admin: 06/08/17 10:45 Dose: 14 unit Metolazone (Zaroxolyn) 5 mg PO MWF [facility] Last Admin: 06/07/17 10:09 Dose: 5 mg Metoprolol Succinate (Toprol Xl) 25 mg PO BID [facility] Last Admin: 06/08/17 10:45 Dose: 25 mg Oxycodone/Acetaminophen (Percocet 5/325 Mg Tab) 1 tab PO TID PRN PRN Reason: Pain, moderate (4-7) Stop: 06/10/17 10:01 Last Admin: 06/07/17 22:10 Dose: 1 tab Silver Sulfadiazine (Silvadene 1% 20 Gm) 1 ea TOP DAILY [facility] Physical Exam - Constitutional Appears: Well, Non-toxic, No Acute Distress - Extremities Exam Additional comments: Right leg focused exam. ACC: Right distal leg +1 pitting edema noted. Rubor on dependency noted. Anterior leg superficial ulceration extending over an area of 5.4 x 7cm with a 100% granular wound base. Sloughing epidermal tissue removed with blunt methods. Day-wound erythema, mild serous exudate. Absnet mal-odor, no undemring of magins. Neuro vascular status intact to right foot with pedal sensation intact, 2/4 DP and PT pulses and CRF to all digits <3 seconds within normal limits. - Neurological Exam Neurological exam: Alert, Oriented x3 - Psychiatric Exam Psychiatric exam: Normal Affect, Normal Mood Results - Vital Signs Recent Vital Signs: Last Vital Signs Temp 97.6 F 06/08/17 08:35 Pulse 68 06/08/17 12:03 Resp 20 06/08/17 08:35 BP 123/71 06/08/17 10:45 Pulse Ox 96 06/08/17 12:03 - Labs Result Diagrams: 06/06/17 15:35 06/08/17 07:56 Labs: Laboratory Results - last 24 hr 06/07/17 06/07/17 06/08/17 16:10 21:02 01:59 Sodium Potassium Chloride Carbon Dioxide Anion Gap BUN Creatinine Est GFR ( Amer) Est GFR (Non-Af Amer) POC Glucose (mg/dL) 210 H 124 H 104 Random Glucose Calcium 06/08/17 06/08/17 06:14 07:56 Sodium 140 Potassium 4.5 Chloride 104 Carbon Dioxide 26 Anion Gap 14 BUN 22 H Creatinine 1.0 Est GFR ( Amer) > 60 Est GFR (Non-Af Amer) 55 POC Glucose (mg/dL) 128 H Random Glucose 103 Calcium 8.5 L Assessment & Plan - Assessment and Plan (Free Text) Assessment: 71 year old female with right anterior leg superficial venous stasis ulceration. Plan: Pt seen and evaluated at bedside with attending, Dr. Bishop, present. Attending endorsed the following plan. Chart, and vitals reviewed. D/C Santyl for application to lower extremity. 100% granular base noted. Ordered Lotrosone & Silvedene cream. To be applied to ulceration bases in a 1:1 mixture daily with KRYSTAL bandade. Site cleansed with saline. Dressed with Xeroform, DSD, & KRYSTAL wrap. Podiatry will continue to follow while inhouse. - Date & Time Date: 06/08/17 Time: 12:40 <Jacobo Bishop - Last Filed: 06/08/17 13:11> Meds - Medications Medications: Current Medications Aspirin (Ecotrin) 81 mg PO DAILY [facility] Last Admin: 06/08/17 10:45 Dose: 81 mg Betamethasone/Clotrimazole (Lotrisone) 1 gm TOP DAILY [facility] Enoxaparin Sodium (Lovenox) 70 mg SC DAILY [facility] Last Admin: 06/08/17 10:46 Dose: 70 mg Furosemide (Lasix) 40 mg IVP BID [facility] Last Admin: 06/08/17 10:45 Dose: 40 mg Insulin Aspart (Novolog) 13 unit SC [facility] Last Admin: 06/08/17 10:45 Dose: 13 unit Insulin Detemir (Levemir) 14 unit SC DAILY [facility] Last Admin: 06/08/17 10:45 Dose: 14 unit Metolazone (Zaroxolyn) 5 mg PO MWF [facility] Last Admin: 06/07/17 10:09 Dose: 5 mg Metoprolol Succinate (Toprol Xl) 25 mg PO BID [facility] Last Admin: 06/08/17 10:45 Dose: 25 mg Oxycodone/Acetaminophen (Percocet 5/325 Mg Tab) 1 tab PO TID PRN PRN Reason: Pain, moderate (4-7) Stop: 06/10/17 10:01 Last Admin: 06/07/17 22:10 Dose: 1 tab Silver Sulfadiazine (Silvadene 1% 20 Gm) 1 ea TOP DAILY [facility] Results - Vital Signs Recent Vital Signs: Last Vital Signs Temp 97.6 F 06/08/17 08:35 Pulse 68 06/08/17 12:03 Resp 20 06/08/17 08:35 BP 123/71 06/08/17 10:45 Pulse Ox 96 06/08/17 12:03 - Labs Result Diagrams: 06/06/17 15:35 06/08/17 07:56 Labs: Laboratory Results - last 24 hr 06/07/17 06/07/17 06/08/17 16:10 21:02 01:59 Sodium Potassium Chloride Carbon Dioxide Anion Gap BUN Creatinine Est GFR ( Amer) Est GFR (Non-Af Amer) POC Glucose (mg/dL) 210 H 124 H 104 Random Glucose Calcium 06/08/17 06/08/17 06:14 07:56 Sodium 140 Potassium 4.5 Chloride 104 Carbon Dioxide 26 Anion Gap 14 BUN 22 H Creatinine 1.0 Est GFR ( Amer) > 60 Est GFR (Non-Af Amer) 55 POC Glucose (mg/dL) 128 H Random Glucose 103 Calcium 8.5 L Attending/Attestation - Attestation I have personally seen and examined this patient.: Yes I have fully participated in the care of the patient.: Yes I have reviewed all pertinent clinical information: Yes Notes (Text): 06/08/17 13:11 Pt seen at bedside with resident. Will order wound care for patient. Pt to keep right foot elevated at rest.
--- NOTE | 2017-06-08 13:54 | VASCLAB ---
STUDY DESCRIPTION: HISTORY: skin necrosis of right LE PRIORS: None. TECHNIQUE: Pulse volume recording waveforms and segmental pressures of bilateral lower extremities at multiple levels were obtained. Ankle Brachial Indices (ABIs) were calculated. Report prepared by RICCI Rose, RVT RIGHT LOWER EXTREMITY: * Brachial artery: Pressure - 121 mmHg. * High thigh: Pressure - mmHg: Ratio - : PVR waveform - Pulsatile * Low thigh: Pressure - mmHg: Ratio - PVR waveform: Pulsatile * Calf: Pressure - 158 mmHg: Ratio - 1.22 PVR waveform: Pulsatile * Posterior tibial Artery: Pressure - 147 mmHg: Ratio - 1.13 PVR waveform: Pulsatile * Dorsalis pedis Artery: Pressure - 157 mmHg: Ratio - 1.21 PVR waveform: Pulsatile * Great toe: Pressure - 92 mmHg: Ratio - 0.71 PVR waveform: Pulsatile Ankle brachial index (AMAURY): 1.21 LEFT LOWER EXTREMITY: * Brachial artery: Pressure - 130 mmHg. * High thigh: Pressure - mmHg: Ratio - : PVR waveform - Pulsatile * Low thigh: Pressure - mmHg: Ratio - PVR waveform: Pulsatile * Calf: Pressure - 170 mmHg: Ratio - 1.31 PVR waveform: Pulsatile * Posterior tibial Artery: Pressure - 141 mmHg: Ratio - 1.08 PVR waveform: Pulsatile * Dorsalis pedis Artery: Pressure - 181 mmHg: Ratio - 1.39 PVR waveform: Pulsatile * Great toe: Pressure - 122 mmHg: Ratio - 0.94 PVR waveform: Pulsatile Ankle brachial index (AMAURY): 1.39 OTHER FINDINGS: Right: Left: IMPRESSION: Right: There was no evidence of hemodynamically significant arterial insufficiency in the right lower extremity. Left: There was no evidence of hemodynamically significant arterial insufficiency in the left lower extremity.
[2017-06-08] MEDS: Silver Sulfadiazine 1% Cream (20 gm) TOP SCH (14:30)
[2017-06-08] MEDS: Oxycodone/Acetaminophen 5/325 mg Tab PO PRN (16:07)
--- NOTE | 2017-06-08 20:06 | CP.PCM.CON ---
History of Present Illness - History of Present Illness History of Present Illness: INFECTIOUS DISEASE CONSULTATION OTTONIEL RANGEL MD, FACP 5T 570.B 06/07/2017 5:00 PM CHART REVIEWED PT EXAMINED CASE DISCUSSED WITH PIPPA LARA, DR HULL, AND PMD DR GILBERTO MOTA THIS PATIENT IS A 71 YEAR OLD FEMALE ADMITTED FROM HOME WITH PROGRESSIVE NON HEALING CELLULITIS, AGGREVATED BY A LONG FLIGHT BACK FROM [place], WITH 2ND LYMPHEDEMA. AN INFECTIOUS DISEASE CONSULTATION WAS REQUESTED 2ND NON HEALING CELLULITIS IN A DM PT. PMHX: DM CHF CHRONIC LYMPHEDEMA HTN S/P CHOLECYSTETOMY S/P INFECTION LEFT FOOT/LEG 3 YEARS AGO-NO ULCER PRESENTLY OSTEOARTHRITIS ETC NO KNOWN ALLERGIES NO TOBACCO NO ETOH FAMILY HX NOT APPLICABLE VSS: WITHDRAWN TODAY AT 5 PM DECREASED MOVEMENT SUPPLE NECL CHEST DECREASED BREATH SOUNDS BOTH BASES COR RR ABD SOFT NON TENDER EXT CHRONIC LYMPHEDEMA ABRASION 2ND EDEMA WITH 2ND CELLULITIS NO OPEN ULCERS PRESENTLY APPRECIATED ON HER LEFT LEG NEURO NO FOCAL FINDINGS WITHDRAWN THIS PM IMPRESSION: CELLULITIS AND 2ND LYMPHEDEMA OF HER LEGS IN A DM WILL REQUIRE IV AB TREATMENT RX; MAXIPIME AND FLAGYL WILL NEED TOPICAL TREATMENT OTTONIEL RANGEL MD, FACP Review of Systems - Review of Systems Systems not reviewed;Unavailable: Other (WITHDRAWN AND NOT MOVING HER EXTREMITES 2ND PAIN) - Constitutional Constitutional: Daytime Sleepiness, Fatigue, Malaise, Weight Gain, Weakness - Cardiovascular Cardiovascular: Diaphoresis, Dyspnea on Exertion, Edema, Leg Edema, Orthopnea, Pedal Edema, Rapid Heart Rate. absent: Chest Pain - Respiratory Respiratory: Dyspnea on Exertion - Gastrointestinal Gastrointestinal: absent: Abdominal Pain, Change in Bowel Habits, Diarrhea, Dysphagia, Fecal Incontinence, Melena, Odynophagia - Genitourinary Genitourinary: Change in Urinary Stream - Musculoskeletal Musculoskeletal: Muscle Weakness, Myalgias, Radiating Pain into Limb, Stiffness - Neurological Neurological: Lack of Coordination, Tingling, Weakness - Psychiatric Psychiatric: Anxiety Past Patient History - Tetanus Immunizations Tetanus Immunization: Unknown - Past Medical History & Family History Past Medical History?: Yes - Past Social History Smoking Status: Never Smoked Chewing Tobacco Use: No Cigar Use: No Alcohol: None Drugs: Denies Home Situation {Lives}: With Family - CARDIAC Hx Cardiac Disorders: Yes Hx Congestive Heart Failure: Yes Hx Hypertension: Yes - PULMONARY Hx Respiratory Disorders: No - NEUROLOGICAL Hx Neurological Disorder: No - HEENT Hx HEENT Problems: No - RENAL Hx Chronic Kidney Disease: Yes - ENDOCRINE/METABOLIC Hx Endocrine Disorders: Yes Hx Diabetes Mellitus Type 2: Yes - HEMATOLOGICAL/ONCOLOGICAL Hx Blood Disorders: No - INTEGUMENTARY Hx Dermatological Problems: Yes Hx Cellulitis: Yes - MUSCULOSKELETAL/RHEUMATOLOGICAL Hx Musculoskeletal Disorders: Yes Hx Falls: No Hx Osteoarthritis: Yes - GASTROINTESTINAL Hx Gastrointestinal Disorders: No - GENITOURINARY/GYNECOLOGICAL Hx Genitourinary Disorders: No - PSYCHIATRIC Hx Substance Use: No Other/Comment: WITHDRAWN - SURGICAL HISTORY Hx Surgeries: Yes Hx Cholecystectomy: Yes - ANESTHESIA Hx Anesthesia: Yes Hx Anesthesia Reactions: No Hx Malignant Hyperthermia: No Has any member of the family had a problem w/ anesthesia?: No Meds Allergies/Adverse Reactions: Allergies Allergy/AdvReac Type Severity Reaction Status Date / Time No Known Allergies Allergy Unverified 01/11/16 20:03 - Medications Medications: Current Medications Aspirin (Ecotrin) 81 mg PO DAILY [facility] Last Admin: 06/08/17 10:45 Dose: 81 mg Betamethasone/Clotrimazole (Lotrisone) 1 gm TOP DAILY [facility] Enoxaparin Sodium (Lovenox) 70 mg SC DAILY [facility] Last Admin: 06/08/17 10:46 Dose: 70 mg Furosemide (Lasix) 40 mg IVP BID [facility] Last Admin: 06/08/17 17:16 Dose: 40 mg Insulin Aspart (Novolog) 13 unit SC AMHS [facility] Last Admin: 06/08/17 10:45 Dose: 13 unit Insulin Detemir (Levemir) 14 unit SC DAILY [facility] Last Admin: 06/08/17 10:45 Dose: 14 unit Metolazone (Zaroxolyn) 5 mg PO MWF [facility] Last Admin: 06/07/17 10:09 Dose: 5 mg Metoprolol Succinate (Toprol Xl) 25 mg PO BID [facility] Last Admin: 06/08/17 17:16 Dose: 25 mg Oxycodone/Acetaminophen (Percocet 5/325 Mg Tab) 1 tab PO TID PRN PRN Reason: Pain, moderate (4-7) Stop: 06/10/17 10:01 Last Admin: 06/08/17 16:07 Dose: 1 tab Silver Sulfadiazine (Silvadene 1% 20 Gm) 1 ea TOP DAILY [facility] Last Admin: 06/08/17 14:30 Dose: 1 applic Physical Exam - Constitutional Appears: Non-toxic - Head Exam Head Exam: NORMAL INSPECTION - Eye Exam Eye Exam: Normal appearance - ENT Exam ENT Exam: Mucous Membranes Dry - Neck Exam Neck exam: Positive for: Normal Inspection - Respiratory Exam Respiratory Exam: Decreased Breath Sounds, NORMAL BREATHING PATTERN - Cardiovascular Exam Cardiovascular Exam: REGULAR RHYTHM - GI/Abdominal Exam GI & Abdominal Exam: Soft. absent: Rigid - Rectal Exam Rectal Exam: Deferred - Neurological Exam Neurological exam: Alert, Oriented x3 - Psychiatric Exam Psychiatric exam: Anxious - Skin Skin Exam: Warm Results - Vital Signs Recent Vital Signs: Last Vital Signs Temp 97.7 F 06/08/17 15:00 Pulse 82 06/08/17 16:42 Resp 20 06/08/17 15:00 BP 128/73 06/08/17 17:16 Pulse Ox 96 06/08/17 15:00 - Labs Result Diagrams: 06/06/17 15:35 06/08/17 07:56 Labs: Laboratory Results - last 24 hr 06/07/17 06/08/17 06/08/17 21:02 01:59 06:14 Sodium Potassium Chloride Carbon Dioxide Anion Gap BUN Creatinine Est GFR ( Amer) Est GFR (Non-Af Amer) POC Glucose (mg/dL) 124 H 104 128 H Random Glucose Calcium Urine Microalbumin 06/08/17 06/08/17 06/08/17 07:56 11:40 15:19 Sodium 140 Potassium 4.5 Chloride 104 Carbon Dioxide 26 Anion Gap 14 BUN 22 H Creatinine 1.0 Est GFR ( Amer) > 60 Est GFR (Non-Af Amer) 55 POC Glucose (mg/dL) 164 H Random Glucose 103 Calcium 8.5 L Urine Microalbumin 30.4 H 06/08/17 16:08 Sodium Potassium Chloride Carbon Dioxide Anion Gap BUN Creatinine Est GFR ( Amer) Est GFR (Non-Af Amer) POC Glucose (mg/dL) 170 H Random Glucose Calcium Urine Microalbumin Assessment & Plan (1) Cellulitis of left lower leg Status: Acute Priority: High Comment: CEFEPIME AND FLAGYL (2) Congestive heart failure (CHF) Status: Acute Priority: Medium (3) Atrial fibrillation with rapid ventricular response Status: Chronic Priority: Medium (4) Dvt femoral (deep venous thrombosis) Status: Suspected Priority: Low
--- NOTE | 2017-06-08 20:17 | CP.PCM.PN ---
Subjective - Date & Time of Evaluation Date of Evaluation: 06/08/17 Time of Evaluation: 20:15 - Subjective Subjective: INFECTIOUS DISEASE PROGRESS NOTE OTTONIEL RANGEL MD, FACP 5T 570-B CHART REVIEWED PT EXAMINED CASE DISCUSSED WITH DR HULL AND UPPER CASER CLINICALLY MORE AWAKE AND ALERT TODAY PUT OUT 3,000 OF FLUID, LOST4-6 LBS WOULD CONTINUE RX PLAN IV CASTILLO, ADD FLORASTOR LIMIT TOPICAL STEROID CREAMS Objective - Vital Signs/Intake and Output Vital Signs (last 24 hours): Temp Pulse Resp BP Pulse Ox 97.7 F 72 20 128/73 96 06/08/17 15:00 06/08/17 19:58 06/08/17 15:00 06/08/17 17:16 06/08/17 15:00 Intake and Output: 06/08/17 06/09/17 18:59 06:59 Intake Total 500 Output Total 1100 Balance -600 - Medications Medications: Current Medications Aspirin (Ecotrin) 81 mg PO DAILY [facility] Last Admin: 06/08/17 10:45 Dose: 81 mg Betamethasone/Clotrimazole (Lotrisone) 1 gm TOP DAILY [facility] Enoxaparin Sodium (Lovenox) 70 mg SC DAILY [facility] Last Admin: 06/08/17 10:46 Dose: 70 mg Furosemide (Lasix) 40 mg IVP BID [facility] Last Admin: 06/08/17 17:16 Dose: 40 mg Insulin Aspart (Novolog) 13 unit SC AMHS [facility] Last Admin: 06/08/17 10:45 Dose: 13 unit Insulin Detemir (Levemir) 14 unit SC DAILY [facility] Last Admin: 06/08/17 10:45 Dose: 14 unit Metolazone (Zaroxolyn) 5 mg PO MWF [facility] Last Admin: 06/07/17 10:09 Dose: 5 mg Metoprolol Succinate (Toprol Xl) 25 mg PO BID [facility] Last Admin: 06/08/17 17:16 Dose: 25 mg Oxycodone/Acetaminophen (Percocet 5/325 Mg Tab) 1 tab PO TID PRN PRN Reason: Pain, moderate (4-7) Stop: 06/10/17 10:01 Last Admin: 06/08/17 16:07 Dose: 1 tab Silver Sulfadiazine (Silvadene 1% 20 Gm) 1 ea TOP DAILY [facility] Last Admin: 06/08/17 14:30 Dose: 1 applic - Labs Labs: 06/06/17 15:35 06/08/17 07:56 PT 11.1 SECONDS (9.7-12.2) 06/06/17 17:52 INR 1.0 06/06/17 17:52 APTT 30 SECONDS (21-34) 06/06/17 17:52 - Constitutional Appears: Non-toxic - Head Exam Head Exam: NORMAL INSPECTION - Eye Exam Eye Exam: Normal appearance Pupil Exam: NORMAL ACCOMODATION - ENT Exam ENT Exam: Mucous Membranes Moist - Neck Exam Neck Exam: Normal Inspection - Respiratory Exam Respiratory Exam: Clear to Ausculation Bilateral - Cardiovascular Exam Cardiovascular Exam: Tachycardia - GI/Abdominal Exam GI & Abdominal Exam: Soft, Normal Bowel Sounds. absent: Tenderness - Rectal Exam Rectal Exam: Deferred - Neurological Exam Neurological Exam: Alert, Awake - Psychiatric Exam Psychiatric exam: Normal Mood - Skin Skin Exam: Normal Color, Warm Assessment and Plan (1) Cellulitis of left lower leg Status: Acute (2) Congestive heart failure (CHF) Status: Acute (3) Atrial fibrillation with rapid ventricular response Status: Chronic (4) Dvt femoral (deep venous thrombosis) Status: Suspected
[2017-06-09] MEDS: Oxycodone/Acetaminophen 5/325 mg Tab PO PRN (01:06)
[2017-06-09 07:53] LABS: BLOOD UREA NITROGEN 24 mg/dL (7-17); CALCIUM 8.1 mg/dl (8.6-10.4); GFR AFRICAN-AMERICAN > 60; GFR NON-AFRICAN AMERICAN 55
[2017-06-09] MEDS: Saccharomyces Boulardi 250 mg Cap PO SCH ×2 (09:52→17:45)
[2017-06-09] MEDS: metOLazone 5 MG TAB PO SCH (09:52)
[2017-06-09] MEDS: Metoprolol Succinate 25 mg XL Tab PO SCH ×2 (10:50→17:45)
[2017-06-09] MEDS: Insulin Detemir 100 units/ml Vial (Levemir) SC SCH (10:51)
[2017-06-09] MEDS: Enoxaparin 80 mg Syringe SC SCH (10:51)
[2017-06-09] MEDS: (Novolog) Insulin Aspart, Recombinant 100 u/ml 10 ml vial SC SCH ×2 (10:51→21:39)
[2017-06-09] MEDS: Clotrimazole/Betamethasone Cream(15 gm) TOP SCH (10:51)
[2017-06-09] MEDS: Silver Sulfadiazine 1% Cream (20 gm) TOP SCH (10:57)
--- NOTE | 2017-06-09 11:11 | CP.PCM.PN ---
Subjective - Date & Time of Evaluation Date of Evaluation: 06/09/17 Time of Evaluation: 11:09 - Subjective Subjective: seen and examined chart reviewed trying to sleep, in bed monsivais in place reports improvement in swelling no n/v/d/sob/dizziness/cp/weakness/numbness Objective - Vital Signs/Intake and Output Vital Signs (last 24 hours): Temp Pulse Resp BP Pulse Ox 97.8 F 71 18 143/66 95 06/09/17 07:00 06/09/17 07:00 06/09/17 07:00 06/09/17 10:50 06/09/17 07:00 Intake and Output: 06/09/17 06/09/17 06:59 18:59 Intake Total 500 Output Total 1200 Balance -700 - Medications Medications: Current Medications Aspirin (Ecotrin) 81 mg PO DAILY [facility] Last Admin: 06/09/17 10:50 Dose: 81 mg Betamethasone/Clotrimazole (Lotrisone) 1 gm TOP DAILY [facility] Last Admin: 06/09/17 10:51 Dose: 1 applic Enoxaparin Sodium (Lovenox) 70 mg SC DAILY [facility] Last Admin: 06/09/17 10:51 Dose: 70 mg Furosemide (Lasix) 40 mg IVP BID [facility] Last Admin: 06/09/17 10:50 Dose: 40 mg Insulin Aspart (Novolog) 13 unit SC [facility] Last Admin: 06/08/17 22:12 Dose: 13 unit Insulin Detemir (Levemir) 14 unit SC DAILY [facility] Last Admin: 06/08/17 10:45 Dose: 14 unit Metolazone (Zaroxolyn) 5 mg PO MWF [facility] Last Admin: 06/09/17 09:52 Dose: 5 mg Metoprolol Succinate (Toprol Xl) 25 mg PO BID [facility] Last Admin: 06/09/17 10:50 Dose: 25 mg Oxycodone/Acetaminophen (Percocet 5/325 Mg Tab) 1 tab PO TID PRN PRN Reason: Pain, moderate (4-7) Stop: 06/10/17 10:01 Last Admin: 06/09/17 01:06 Dose: 1 tab [facility]ii [facility] Last Admin: 06/09/17 09:52 Dose: 500 mg Silver Sulfadiazine (Silvadene 1% 20 Gm) 1 ea TOP DAILY [facility] Last Admin: 06/09/17 10:57 Dose: 1 applic - Labs Labs: 06/06/17 15:35 06/09/17 07:32 PT 11.1 SECONDS (9.7-12.2) 06/06/17 17:52 INR 1.0 06/06/17 17:52 APTT 30 SECONDS (21-34) 06/06/17 17:52 - Constitutional Appears: No Acute Distress, Chronically Ill (obese) - Head Exam Head Exam: NORMAL INSPECTION, NORMOCEPHALIC - Eye Exam Eye Exam: Normal appearance Pupil Exam: PERRL - ENT Exam ENT Exam: Mucous Membranes Moist, Normal Exam - Neck Exam Neck Exam: Full ROM, Normal Inspection - Respiratory Exam Respiratory Exam: Decreased Breath Sounds (at bases), NORMAL BREATHING PATTERN - Cardiovascular Exam Cardiovascular Exam: REGULAR RHYTHM, RRR - GI/Abdominal Exam GI & Abdominal Exam: Distended, Soft - Extremities Exam Extremities Exam: Normal Inspection (b/l LE edema R>L, erythema) - Neurological Exam Neurological Exam: Alert, Awake, Oriented x3 - Psychiatric Exam Psychiatric exam: Normal Affect, Normal Mood Assessment and Plan (1) Congestive heart failure (CHF) Status: Acute (2) Leg edema Status: Acute (3) Atrial fibrillation with rapid ventricular response Status: Chronic - Assessment and Plan (Free Text) Assessment: maintain diuretics, likely edema as well as chronic stasis which is unlikely to improve w/ diuresis daily [facility] podiatry management for diabetic foot ulcer
--- NOTE | 2017-06-09 12:07 | CP.PCM.PN ---
Subjective - Date & Time of Evaluation Date of Evaluation: 06/09/17 Time of Evaluation: 12:05 - Subjective Subjective: Pt seen at bedside for right leg redness and swelling. Pt took of the dressing at night. Right leg shows edema and erythema with no weeping noted today. Cont with 1:1 mixture of silvadene and lotrisone to right leg bid with compression dressing for a few more days. Abx as ID. Objective - Vital Signs/Intake and Output Vital Signs (last 24 hours): Temp Pulse Resp BP Pulse Ox 97.8 F 71 18 143/66 95 06/09/17 07:00 06/09/17 07:00 06/09/17 07:00 06/09/17 10:50 06/09/17 07:00 Intake and Output: 06/09/17 06/09/17 06:59 18:59 Intake Total 500 Output Total 1200 Balance -700 - Medications Medications: Current Medications Aspirin (Ecotrin) 81 mg PO DAILY [facility] Last Admin: 06/09/17 10:50 Dose: 81 mg Betamethasone/Clotrimazole (Lotrisone) 1 gm TOP DAILY [facility] Last Admin: 06/09/17 10:51 Dose: 1 applic Enoxaparin Sodium (Lovenox) 70 mg SC DAILY [facility] Last Admin: 06/09/17 10:51 Dose: 70 mg Furosemide (Lasix) 40 mg IVP BID [facility] Last Admin: 06/09/17 10:50 Dose: 40 mg Insulin Aspart (Novolog) 13 unit SC [facility]HS [facility] Last Admin: 06/09/17 10:51 Dose: 13 unit Insulin Detemir (Levemir) 14 unit SC DAILY [facility] Last Admin: 06/09/17 10:51 Dose: 14 unit Metolazone (Zaroxolyn) 5 mg PO MWF [facility] Last Admin: 06/09/17 09:52 Dose: 5 mg Metoprolol Succinate (Toprol Xl) 25 mg PO BID [facility] Last Admin: 06/09/17 10:50 Dose: 25 mg Oxycodone/Acetaminophen (Percocet 5/325 Mg Tab) 1 tab PO TID PRN PRN Reason: Pain, moderate (4-7) Stop: 06/10/17 10:01 Last Admin: 06/09/17 01:06 Dose: 1 tab [facility]ii [facility] Last Admin: 06/09/17 09:52 Dose: 500 mg Silver Sulfadiazine (Silvadene 1% 20 Gm) 1 ea TOP DAILY [facility] Last Admin: 06/09/17 10:57 Dose: 1 applic - Labs Labs: 06/06/17 15:35 06/09/17 07:32 PT 11.1 SECONDS (9.7-12.2) 06/06/17 17:52 INR 1.0 06/06/17 17:52 APTT 30 SECONDS (21-34) 06/06/17 17:52
--- NOTE | 2017-06-09 12:34 | CP.PCM.PN ---
Subjective - Date & Time of Evaluation Date of Evaluation: 06/09/17 Time of Evaluation: 12:32 - Subjective Subjective: cellulitis getting better.wt is not reliable.feels good.nsr. Objective - Vital Signs/Intake and Output Vital Signs (last 24 hours): Temp Pulse Resp BP Pulse Ox 97.8 F 71 18 143/66 95 06/09/17 07:00 06/09/17 07:00 06/09/17 07:00 06/09/17 10:50 06/09/17 07:00 Intake and Output: 06/09/17 06/09/17 06:59 18:59 Intake Total 500 Output Total 1200 Balance -700 - Medications Medications: Current Medications Aspirin (Ecotrin) 81 mg PO DAILY [facility] Last Admin: 06/09/17 10:50 Dose: 81 mg Betamethasone/Clotrimazole (Lotrisone) 1 gm TOP DAILY [facility] Last Admin: 06/09/17 10:51 Dose: 1 applic Enoxaparin Sodium (Lovenox) 70 mg SC DAILY [facility] Last Admin: 06/09/17 10:51 Dose: 70 mg Furosemide (Lasix) 40 mg IVP BID [facility] Last Admin: 06/09/17 10:50 Dose: 40 mg Cefepime HCl (Maxipime Iv 1 Gm Premix) 1 gm in 50 mls @ 100 mls/hr IVPB Q24H [facility] PRN Reason: Protocol Metronidazole (Flagyl) 500 mg in 100 mls @ 100 mls/hr IVPB Q8 [facility] PRN Reason: Protocol Insulin Aspart (Novolog) 13 unit SC [facility] Last Admin: 06/09/17 10:51 Dose: 13 unit Insulin Detemir (Levemir) 14 unit SC DAILY [facility] Last Admin: 06/09/17 10:51 Dose: 14 unit Metolazone (Zaroxolyn) 5 mg PO MWF [facility] Last Admin: 06/09/17 09:52 Dose: 5 mg Metoprolol Succinate (Toprol Xl) 25 mg PO BID [facility] Last Admin: 06/09/17 10:50 Dose: 25 mg Oxycodone/Acetaminophen (Percocet 5/325 Mg Tab) 1 tab PO TID PRN PRN Reason: Pain, moderate (4-7) Stop: 06/10/17 10:01 Last Admin: 06/09/17 01:06 Dose: 1 tab Saccharomyces Boulardii (Florastor) 500 mg PO BIDPC [facility] Last Admin: 06/09/17 09:52 Dose: 500 mg Silver Sulfadiazine (Silvadene 1% 20 Gm) 1 ea TOP DAILY [facility] Last Admin: 06/09/17 10:57 Dose: 1 applic - Labs Labs: 06/06/17 15:35 06/09/17 07:32 PT 11.1 SECONDS (9.7-12.2) 06/06/17 17:52 INR 1.0 06/06/17 17:52 APTT 30 SECONDS (21-34) 06/06/17 17:52 - Constitutional Appears: No Acute Distress, Chronically Ill - Eye Exam Eye Exam: Normal appearance - Neck Exam Neck Exam: Normal Inspection - Respiratory Exam Respiratory Exam: Clear to Ausculation Bilateral - Cardiovascular Exam Cardiovascular Exam: REGULAR RHYTHM - GI/Abdominal Exam GI & Abdominal Exam: Soft - Neurological Exam Neurological Exam: Alert, Oriented x3 Assessment and Plan - Assessment and Plan (Free Text) Plan: edema 7 cellulitis is getting better.labs are good.iv antibiotics resumed.
--- NOTE | 2017-06-09 12:34 | CP.PCM.PN ---
Subjective - Date & Time of Evaluation Date of Evaluation: 06/09/17 Time of Evaluation: 12:31 - Subjective Subjective: PT SEEN BY DR. Alisha MOTA. DISCUSSED WITH HIM REGARDING DISPOSITION. ALSO DISCUSSED WITH DR. MOTA THE WOUND CX RESULTS FROM THIS MORNING. I AM UNSURE IF NURSING NOTIFIED ID. PER DR. MOTA HE HAS ALREADY PLACED A CALL TO DR. RANGEL AND WILL DISCUSS WITH HIM THE IV ABX RECOMMENDATIONS AND DURATION, BUT FOR NOW TO CONTINUE WHAT PT IS ON. I NOTIFIED DR. MOTA THAT PT IS NOT ON ANY IV NOR PO ABX. MAXIPIME AND FLAGYL ONLY GIVEN IN THE ED; CONTINUE THESE TWO IV ABX FOR NOW PER DR. MOTA. ORDERS PLACED. NO FURTHER ORDERS AT THIS TIME. Objective - Vital Signs/Intake and Output Vital Signs (last 24 hours): Temp Pulse Resp BP Pulse Ox 97.8 F 71 18 143/66 95 06/09/17 07:00 06/09/17 07:00 06/09/17 07:00 06/09/17 10:50 06/09/17 07:00 Intake and Output: 06/09/17 06/09/17 06:59 18:59 Intake Total 500 Output Total 1200 Balance -700 - Medications Medications: Current Medications Aspirin (Ecotrin) 81 mg PO DAILY [facility] Last Admin: 06/09/17 10:50 Dose: 81 mg Betamethasone/Clotrimazole (Lotrisone) 1 gm TOP DAILY [facility] Last Admin: 06/09/17 10:51 Dose: 1 applic Enoxaparin Sodium (Lovenox) 70 mg SC DAILY [facility] Last Admin: 06/09/17 10:51 Dose: 70 mg Furosemide (Lasix) 40 mg IVP BID [facility] Last Admin: 06/09/17 10:50 Dose: 40 mg Insulin Aspart (Novolog) 13 unit SC AMHS [facility] Last Admin: 06/09/17 10:51 Dose: 13 unit Insulin Detemir (Levemir) 14 unit SC DAILY [facility] Last Admin: 06/09/17 10:51 Dose: 14 unit Metolazone (Zaroxolyn) 5 mg PO MWF [facility] Last Admin: 06/09/17 09:52 Dose: 5 mg Metoprolol Succinate (Toprol Xl) 25 mg PO BID [facility] Last Admin: 06/09/17 10:50 Dose: 25 mg Oxycodone/Acetaminophen (Percocet 5/325 Mg Tab) 1 tab PO TID PRN PRN Reason: Pain, moderate (4-7) Stop: 06/10/17 10:01 Last Admin: 06/09/17 01:06 Dose: 1 tab Saccharomyces Boulardii (Florastor) 500 mg PO BIDPC [facility] Last Admin: 06/09/17 09:52 Dose: 500 mg Silver Sulfadiazine (Silvadene 1% 20 Gm) 1 ea TOP DAILY [facility] Last Admin: 06/09/17 10:57 Dose: 1 applic - Labs Labs: 06/06/17 15:35 06/09/17 07:32 PT 11.1 SECONDS (9.7-12.2) 06/06/17 17:52 INR 1.0 06/06/17 17:52 APTT 30 SECONDS (21-34) 06/06/17 17:52
--- NOTE | 2017-06-09 13:10 | CP.PCM.PN ---
Subjective - Date & Time of Evaluation Date of Evaluation: 06/09/17 Time of Evaluation: 13:07 - Subjective Subjective: PGY-1 surgery progress note for Dr Nunez. No acute events noted overnight. Patient had lower right extremity wrapped in kerlix. She appeared to be much better today. She was ambulating to the bathroom and stated the pain in her right leg was less than yesterday. Objective - Vital Signs/Intake and Output Vital Signs (last 24 hours): Temp Pulse Resp BP Pulse Ox 97.8 F 71 18 143/66 95 06/09/17 07:00 06/09/17 07:00 06/09/17 07:00 06/09/17 10:50 06/09/17 07:00 Intake and Output: 06/09/17 06/09/17 06:59 18:59 Intake Total 500 Output Total 1200 Balance -700 - Medications Medications: Current Medications Aspirin (Ecotrin) 81 mg PO DAILY [facility] Last Admin: 06/09/17 10:50 Dose: 81 mg Betamethasone/Clotrimazole (Lotrisone) 1 gm TOP DAILY [facility] Last Admin: 06/09/17 10:51 Dose: 1 applic Enoxaparin Sodium (Lovenox) 70 mg SC DAILY [facility] Last Admin: 06/09/17 10:51 Dose: 70 mg Furosemide (Lasix) 40 mg IVP BID [facility] Last Admin: 06/09/17 10:50 Dose: 40 mg Cefepime HCl (Maxipime Iv 1 Gm Premix) 1 gm in 50 mls @ 100 mls/hr IVPB Q24H [facility] PRN Reason: Protocol Metronidazole (Flagyl) 500 mg in 100 mls @ 100 mls/hr IVPB Q8 [facility] PRN Reason: Protocol Insulin Aspart (Novolog) 13 unit SC [facility] Last Admin: 06/09/17 10:51 Dose: 13 unit Insulin Detemir (Levemir) 14 unit SC DAILY [facility] Last Admin: 06/09/17 10:51 Dose: 14 unit Metolazone (Zaroxolyn) 5 mg PO MWF [facility] Last Admin: 06/09/17 09:52 Dose: 5 mg Metoprolol Succinate (Toprol Xl) 25 mg PO BID [facility] Last Admin: 06/09/17 10:50 Dose: 25 mg Oxycodone/Acetaminophen (Percocet 5/325 Mg Tab) 1 tab PO TID PRN PRN Reason: Pain, moderate (4-7) Stop: 06/10/17 10:01 Last Admin: 06/09/17 01:06 Dose: 1 tab Saccharomyces Boulardii (Florastor) 500 mg PO BIDPC [facility] Last Admin: 06/09/17 09:52 Dose: 500 mg Silver Sulfadiazine (Silvadene 1% 20 Gm) 1 ea TOP DAILY [facility] Last Admin: 06/09/17 10:57 Dose: 1 applic - Labs Labs: 06/06/17 15:35 06/09/17 07:32 PT 11.1 SECONDS (9.7-12.2) 06/06/17 17:52 INR 1.0 06/06/17 17:52 APTT 30 SECONDS (21-34) 06/06/17 17:52 - Additional Findings Additional findings: - Constitutional Appears: Well, No Acute Distress, Other (obese) - Head Exam Head Exam: ATRAUMATIC, NORMAL INSPECTION - Eye Exam Eye Exam: EOMI Pupil Exam: PERRL - ENT Exam ENT Exam: Mucous Membranes Moist - Neck Exam Neck exam: Positive for: Normal Inspection. Negative for: Lymphadenopathy, Tenderness - Respiratory Exam Respiratory Exam: Clear to Auscultation Bilateral, Rales, NORMAL BREATHING PATTERN. absent: Rhonchi, Wheezes - Cardiovascular Exam Cardiovascular Exam: REGULAR RHYTHM, JVD, +S1, +S2, Systolic Murmur. absent: Bradycardia, Tachycardia - GI/Abdominal Exam GI & Abdominal Exam: Normal Bowel Sounds, Soft. absent: Tenderness - Extremities Exam Extremities exam: Positive for: calf tenderness, normal capillary refill, pedal edema, tenderness, pedal pulses present Additional comments: excoriation on right leg, chronic dermatitic changes but not consistent with cellulitis right greater than left swelling 4/4 pitting edema - Neurological Exam Neurological exam: Oriented x3 - Skin Skin Exam: Warm Additional comments: as stated above Assessment and Plan (1) Leg edema Status: Acute - Assessment and Plan (Free Text) Assessment: (1) Leg edema Assessment and Plan: -Right leg edema with skin changes likely 2/2 to CHF -Duplex scan does not show any evidence of LE thrombosis -Arterial PVR of right lower extremity did not show any evidence of hemodynamically significant arterial insufficiency in the right or left LE -No surgical intervention planned at this time. We will continue to follow while patient in house. -Apply silvadene cream and wrap wound site tightly -Advise to apply compressive stocking -Continue diuresis -Continue abx Discussed with Dr Nunez. Status: Acute Priority: High
[2017-06-09] MEDS: metroNIDAZOLE IV 500 mg/100 ml 500 MG/100 ML BAG IVPB SCH ×2 (15:54→21:33)
[2017-06-09] MEDS: Cefepime IV 1 gm in Dextrose 1 GM/50 ML BAG IVPB SCH (21:03)
[2017-06-10] MEDS: metroNIDAZOLE IV 500 mg/100 ml 500 MG/100 ML BAG IVPB SCH ×3 (06:02→21:24)
--- NOTE | 2017-06-10 08:20 | CP.PCM.PN ---
Subjective - Date & Time of Evaluation Date of Evaluation: 06/10/17 Time of Evaluation: 08:17 - Subjective Subjective: seen and examined no events chart reviewed no labs today pt diuresing well on iv lasix, monsivais in place feels swelling improved, able to walk to bathroom no n/v/d/sob/dizziness/cp/f/c/rash/headache/weakness/numbness Objective - Vital Signs/Intake and Output Vital Signs (last 24 hours): Temp Pulse Resp BP Pulse Ox 98.2 F 75 18 145/69 95 06/10/17 07:05 06/10/17 07:05 06/10/17 07:05 06/10/17 07:05 06/10/17 07:05 Intake and Output: 06/10/17 06/10/17 06:59 18:59 Intake Total 650 Output Total 1700 Balance -1050 - Medications Medications: Current Medications Aspirin (Ecotrin) 81 mg PO DAILY [facility] Last Admin: 06/09/17 10:50 Dose: 81 mg Betamethasone/Clotrimazole (Lotrisone) 1 gm TOP DAILY [facility] Last Admin: 06/09/17 10:51 Dose: 1 applic Enoxaparin Sodium (Lovenox) 70 mg SC DAILY [facility] Last Admin: 06/09/17 10:51 Dose: 70 mg Furosemide (Lasix) 40 mg IVP BID [facility] Last Admin: 06/09/17 17:45 Dose: 40 mg Cefepime HCl (Maxipime Iv 1 Gm Premix) 1 gm in 50 mls @ 100 mls/hr IVPB Q24H [facility] PRN Reason: Protocol Last Admin: 06/09/17 21:03 Dose: 100 mls/hr Metronidazole (Flagyl) 500 mg in 100 mls @ 100 mls/hr IVPB Q8 [facility] PRN Reason: Protocol Last Admin: 06/10/17 06:02 Dose: 100 mls/hr Insulin Aspart (Novolog) 13 unit SC [facility] Last Admin: 06/09/17 21:39 Dose: 13 unit Insulin Detemir (Levemir) 14 unit SC DAILY [facility] Last Admin: 06/09/17 10:51 Dose: 14 unit Metolazone (Zaroxolyn) 5 mg PO MWF [facility] Last Admin: 06/09/17 09:52 Dose: 5 mg Metoprolol Succinate (Toprol Xl) 25 mg PO BID [facility] Last Admin: 06/09/17 17:45 Dose: 25 mg Oxycodone/Acetaminophen (Percocet 5/325 Mg Tab) 1 tab PO TID PRN PRN Reason: Pain, moderate (4-7) Stop: 06/10/17 10:01 Last Admin: 06/09/17 01:06 Dose: 1 tab Saccharomyces Boulardii (Florastor) 500 mg PO BIDPC [facility] Last Admin: 06/09/17 17:45 Dose: 500 mg Silver Sulfadiazine (Silvadene 1% 20 Gm) 1 ea TOP DAILY [facility] Last Admin: 06/09/17 10:57 Dose: 1 applic - Labs Labs: 06/06/17 15:35 06/09/17 07:32 PT 11.1 SECONDS (9.7-12.2) 06/06/17 17:52 INR 1.0 06/06/17 17:52 APTT 30 SECONDS (21-34) 06/06/17 17:52 - Constitutional Appears: Non-toxic (obese), No Acute Distress - Head Exam Head Exam: NORMAL INSPECTION, NORMOCEPHALIC - Eye Exam Eye Exam: Normal appearance Pupil Exam: PERRL - ENT Exam ENT Exam: Mucous Membranes Moist, Normal Exam - Neck Exam Neck Exam: Full ROM, Normal Inspection - Respiratory Exam Respiratory Exam: Clear to Ausculation Bilateral, NORMAL BREATHING PATTERN - Cardiovascular Exam Cardiovascular Exam: REGULAR RHYTHM, RRR - GI/Abdominal Exam GI & Abdominal Exam: Distended, Soft - Extremities Exam Extremities Exam: Pedal Edema (b/l edema r>L, rt foot in dressing) - Neurological Exam Neurological Exam: Alert, Awake, Oriented x3 - Psychiatric Exam Psychiatric exam: Normal Affect, Normal Mood - Skin Skin Exam: Normal Color. absent: Intact Assessment and Plan (1) Congestive heart failure (CHF) Status: Acute (2) Leg edema Status: Acute (3) Atrial fibrillation with rapid ventricular response Status: Chronic - Assessment and Plan (Free Text) Assessment: recommend daily labs on iv diuretics recommend dc monsivais when possible antibiotics and wound care pt/ot
--- NOTE | 2017-06-10 08:33 | RAD ---
HISTORY: COMPARISON: 06/06/2017. TECHNIQUE: Chest PA and lateral FINDINGS: LINES AND TUBES: None. LUNG AND PLEURA: The lungs are well inflated. There is moderate pulmonary venous congestion and mild interstitial pulmonary edema. There is bibasilar atelectasis. No focal consolidation. HEART AND MEDIASTINUM: The heart is not enlarged. The hilar and mediastinal contours are within normal limits. SKELETAL STRUCTURES: The bony structures are within normal limits for the patient's age. VISUALIZED UPPER ABDOMEN: Normal. OTHER FINDINGS: None. IMPRESSION: Moderate pulmonary venous congestion and mild interstitial pulmonary edema.
[2017-06-10] MEDS: Metoprolol Succinate 25 mg XL Tab PO SCH ×2 (09:54→18:04)
[2017-06-10] MEDS: Enoxaparin 80 mg Syringe SC SCH (09:54)
[2017-06-10] MEDS: Saccharomyces Boulardi 250 mg Cap PO SCH ×2 (09:54→18:04)
[2017-06-10] MEDS: (Novolog) Insulin Aspart, Recombinant 100 u/ml 10 ml vial SC SCH ×2 (09:55→21:24)
[2017-06-10] MEDS: Insulin Detemir 100 units/ml Vial (Levemir) SC SCH (09:55)
[2017-06-10] MEDS: Clotrimazole/Betamethasone Cream(15 gm) TOP SCH (10:48)
[2017-06-10] MEDS: Silver Sulfadiazine 1% Cream (20 gm) TOP SCH (10:49)
--- NOTE | 2017-06-10 12:42 | CP.PCM.PN ---
Subjective - Date & Time of Evaluation Date of Evaluation: 06/10/17 Time of Evaluation: 12:40 - Subjective Subjective: better,x ray still has pul congestion. Objective - Vital Signs/Intake and Output Vital Signs (last 24 hours): Temp Pulse Resp BP Pulse Ox 98.2 F 75 18 145/69 95 06/10/17 07:05 06/10/17 07:05 06/10/17 07:05 06/10/17 09:55 06/10/17 07:05 Intake and Output: 06/10/17 06/10/17 06:59 18:59 Intake Total 650 Output Total 1700 Balance -1050 - Medications Medications: Current Medications Aspirin (Ecotrin) 81 mg PO DAILY [facility] Last Admin: 06/10/17 09:54 Dose: 81 mg Betamethasone/Clotrimazole (Lotrisone) 1 gm TOP DAILY [facility] Last Admin: 06/09/17 10:51 Dose: 1 applic Enoxaparin Sodium (Lovenox) 70 mg SC DAILY [facility] Last Admin: 06/10/17 09:54 Dose: 70 mg Furosemide (Lasix) 40 mg IVP BID [facility] Last Admin: 06/10/17 09:55 Dose: 40 mg Cefepime HCl (Maxipime Iv 1 Gm Premix) 1 gm in 50 mls @ 100 mls/hr IVPB Q24H [facility] PRN Reason: Protocol Last Admin: 06/09/17 21:03 Dose: 100 mls/hr Metronidazole (Flagyl) 500 mg in 100 mls @ 100 mls/hr IVPB Q8 [facility] PRN Reason: Protocol Last Admin: 06/10/17 06:02 Dose: 100 mls/hr Insulin Aspart (Novolog) 13 unit SC AMHS [facility] Last Admin: 06/10/17 09:55 Dose: 13 unit Insulin Detemir (Levemir) 14 unit SC DAILY [facility] Last Admin: 06/10/17 09:55 Dose: 14 unit Metolazone (Zaroxolyn) 5 mg PO MWF [facility] Last Admin: 06/09/17 09:52 Dose: 5 mg Metoprolol Succinate (Toprol Xl) 25 mg PO BID [facility] Last Admin: 06/10/17 09:54 Dose: 25 mg Saccharomyces Boulardii (Florastor) 500 mg PO BIDPC [facility] Last Admin: 04/26/18 09:54 Dose: 500 mg Silver Sulfadiazine (Silvadene 1% 20 Gm) 1 ea TOP DAILY [facility] Last Admin: 06/09/17 10:57 Dose: 1 applic - Labs Labs: 06/06/17 15:35 06/09/17 07:32 PT 11.1 SECONDS (9.7-12.2) 06/06/17 17:52 INR 1.0 06/06/17 17:52 APTT 30 SECONDS (21-34) 06/06/17 17:52 - Constitutional Appears: No Acute Distress - Head Exam Head Exam: NORMOCEPHALIC - ENT Exam ENT Exam: Mucous Membranes Moist - Respiratory Exam Respiratory Exam: Clear to Ausculation Bilateral - GI/Abdominal Exam GI & Abdominal Exam: Soft - Neurological Exam Neurological Exam: Alert, Oriented x3 Assessment and Plan - Assessment and Plan (Free Text) Plan: cellulitis better.still congestion.pul eval.recheck echo.
[2017-06-10 12:48] LABS: ALBUMIN (PEP) 2.7 g/dL (3.8-4.8); ALPHA-1-GLOBULIN (PEP) 0.3 g/dL (0.2-0.3)
[2017-06-10] MEDS: Cefepime IV 1 gm in Dextrose 1 GM/50 ML BAG IVPB SCH (16:51)
--- NOTE | 2017-06-10 16:55 | CP.PCM.CON ---
History of Present Illness - History of Present Illness History of Present Illness: reason for consultation: sleep apnea/dyspnea 71-year-old female with history of obstructive sleep apnea, diabetes, hypertension, lymphedema who was admitted with cellulitis/lymphedema of right leg. Patient has been noncompliant using CPAP at night. On and off shortness of breath. Patient was started on IV antibiotics by infectious disease. Denies fever chills, denies chest pain. PMHx: diabetes type II, diastolic CHF, lymphedema, HTN PSHx: Cholecystectomy Allergies: NKA FamHx: Denies SocialHx: Denies tobacco history, alcohol use, lives with at home Review of Systems - Review of Systems All systems: reviewed and no additional remarkable complaints except (swelling of right leg/shortness of breath) Past Patient History - Tetanus Immunizations Tetanus Immunization: Unknown - Past Medical History & Family History Past Medical History?: Yes - Past Social History Smoking Status: Never Smoked Chewing Tobacco Use: No Cigar Use: No Alcohol: None Drugs: Denies Home Situation {Lives}: With Family - CARDIAC Hx Cardiac Disorders: Yes Hx Congestive Heart Failure: Yes Hx Hypertension: Yes - PULMONARY Hx Respiratory Disorders: No - NEUROLOGICAL Hx Neurological Disorder: No - HEENT Hx HEENT Problems: No - RENAL Hx Chronic Kidney Disease: Yes - ENDOCRINE/METABOLIC Hx Endocrine Disorders: Yes Hx Diabetes Mellitus Type 2: Yes - HEMATOLOGICAL/ONCOLOGICAL Hx Blood Disorders: No - INTEGUMENTARY Hx Dermatological Problems: Yes Hx Cellulitis: Yes - MUSCULOSKELETAL/RHEUMATOLOGICAL Hx Musculoskeletal Disorders: Yes Hx Falls: No Hx Osteoarthritis: Yes - GASTROINTESTINAL Hx Gastrointestinal Disorders: No - GENITOURINARY/GYNECOLOGICAL Hx Genitourinary Disorders: No - PSYCHIATRIC Hx Substance Use: No Other/Comment: WITHDRAWN - SURGICAL HISTORY Hx Surgeries: Yes Hx Cholecystectomy: Yes - ANESTHESIA Hx Anesthesia: Yes Hx Anesthesia Reactions: No Hx Malignant Hyperthermia: No Has any member of the family had a problem w/ anesthesia?: No Meds Allergies/Adverse Reactions: Allergies Allergy/AdvReac Type Severity Reaction Status Date / Time No Known Allergies Allergy Unverified 01/11/16 20:03 - Medications Medications: Current Medications Aspirin (Ecotrin) 81 mg PO DAILY [facility] Last Admin: 06/10/17 09:54 Dose: 81 mg Betamethasone/Clotrimazole (Lotrisone) 1 gm TOP DAILY [facility] Last Admin: 06/10/17 10:48 Dose: 1 applic Enoxaparin Sodium (Lovenox) 70 mg SC DAILY [facility] Last Admin: 06/10/17 09:54 Dose: 70 mg Furosemide (Lasix) 40 mg IVP BID [facility] Last Admin: 06/10/17 09:55 Dose: 40 mg Cefepime HCl (Maxipime Iv 1 Gm Premix) 1 gm in 50 mls @ 100 mls/hr IVPB Q24H [facility] PRN Reason: Protocol Last Admin: 06/10/17 16:51 Dose: 100 mls/hr Metronidazole (Flagyl) 500 mg in 100 mls @ 100 mls/hr IVPB Q8 [facility] PRN Reason: Protocol Last Admin: 06/10/17 13:47 Dose: 100 mls/hr Insulin Aspart (Novolog) 13 unit SC [facility] Last Admin: 06/10/17 09:55 Dose: 13 unit Insulin Detemir (Levemir) 14 unit SC DAILY [facility] Last Admin: 06/10/17 09:55 Dose: 14 unit Metolazone (Zaroxolyn) 5 mg PO MWF [facility] Last Admin: 06/09/17 09:52 Dose: 5 mg Metoprolol Succinate (Toprol Xl) 25 mg PO BID [facility] Last Admin: 06/10/17 09:54 Dose: 25 mg Saccharomyces Boulardii (Florastor) 500 mg PO BIDPC [facility] Last Admin: 06/10/17 09:54 Dose: 500 mg Silver Sulfadiazine (Silvadene 1% 20 Gm) 1 ea TOP DAILY [facility] Last Admin: 06/10/17 10:49 Dose: 1 applic Physical Exam - Head Exam Head Exam: ATRAUMATIC, NORMOCEPHALIC - ENT Exam ENT Exam: Mucous Membranes Moist - Neck Exam Neck exam: Positive for: Normal Inspection - Respiratory Exam Respiratory Exam: Clear to Auscultation Bilateral - Cardiovascular Exam Cardiovascular Exam: REGULAR RHYTHM - GI/Abdominal Exam GI & Abdominal Exam: Normal Bowel Sounds Results - Vital Signs Recent Vital Signs: Last Vital Signs Temp 98.0 F 06/10/17 16:31 Pulse 80 06/10/17 16:31 Resp 20 06/10/17 16:31 BP 131/51 L 06/10/17 16:31 Pulse Ox 95 06/10/17 16:31 - Labs Result Diagrams: 06/06/17 15:35 06/09/17 07:32 Labs: Laboratory Results - last 24 hr 06/09/17 06/09/17 06/10/17 07:32 21:18 02:12 POC Glucose (mg/dL) 130 H 97 Total Protein (PEP) 6.4 Albumin (PEP) 2.7 L Zeunq-9-Rpullfpes 0.3 Drkpf-3-Vxfnbmnkx 1.1 H Cewk-1-Zolnvxbt 0.4 Npqj-4-Ezxovgfk 0.6 H Gamma Globulins 1.2 Abnorm Protein Band 1 TEST NOT PERFORMED Abnorm Protein Band 2 TEST NOT PERFORMED Abnorm Protein Band 3 TEST NOT PERFORMED [facility] SPEP Interp See note 06/10/17 06/10/17 06/10/17 06:20 11:12 16:12 POC Glucose (mg/dL) 107 272 H 257 H Total Protein (PEP) Albumin (PEP) Yyjee-8-Xacmjexgn Ucdft-4-Eovmwievl Xrvm-5-Mpctnjmu Xghx-3-Avpgcnrt Gamma Globulins Abnorm Protein Band 1 Abnorm Protein Band 2 Abnorm Protein Band 3 STEPHANIE & SPEP Interp Assessment & Plan (1) DUNG (obstructive sleep apnea) Status: Acute Comment: patient does not want to use Cpap AT NIGHT (2) Dyspnea Status: Acute
--- NOTE | 2017-06-10 17:09 | CP.PCM.CON ---
History of Present Illness - History of Present Illness History of Present Illness: Podiatry Progress Note- Dr. Bishop 71 year old female seen at bedside for right leg redness and swelling. Right leg shows edema and erythema with no weeping noted today. Pt reports about a 605 improvement in symptoms with near complete resolution of itching and burning to area of concern. Pt statres that she is tolerating the compression dressing at this time. PT deneis any acute overnight event. Denies recent f/c/cp /sob/n/v/d. Past Patient History - Tetanus Immunizations Tetanus Immunization: Unknown - Past Medical History & Family History Past Medical History?: Yes - Past Social History Smoking Status: Never Smoked Chewing Tobacco Use: No Cigar Use: No Alcohol: None Drugs: Denies Home Situation {Lives}: With Family - CARDIAC Hx Cardiac Disorders: Yes Hx Congestive Heart Failure: Yes Hx Hypertension: Yes - PULMONARY Hx Respiratory Disorders: No - NEUROLOGICAL Hx Neurological Disorder: No - HEENT Hx HEENT Problems: No - RENAL Hx Chronic Kidney Disease: Yes - ENDOCRINE/METABOLIC Hx Endocrine Disorders: Yes Hx Diabetes Mellitus Type 2: Yes - HEMATOLOGICAL/ONCOLOGICAL Hx Blood Disorders: No - INTEGUMENTARY Hx Dermatological Problems: Yes Hx Cellulitis: Yes - MUSCULOSKELETAL/RHEUMATOLOGICAL Hx Musculoskeletal Disorders: Yes Hx Falls: No Hx Osteoarthritis: Yes - GASTROINTESTINAL Hx Gastrointestinal Disorders: No - GENITOURINARY/GYNECOLOGICAL Hx Genitourinary Disorders: No - PSYCHIATRIC Hx Substance Use: No Other/Comment: WITHDRAWN - SURGICAL HISTORY Hx Surgeries: Yes Hx Cholecystectomy: Yes - ANESTHESIA Hx Anesthesia: Yes Hx Anesthesia Reactions: No Hx Malignant Hyperthermia: No Has any member of the family had a problem w/ anesthesia?: No Meds Allergies/Adverse Reactions: Allergies Allergy/AdvReac Type Severity Reaction Status Date / Time No Known Allergies Allergy Unverified 01/11/16 20:03 - Medications Medications: Current Medications Aspirin (Ecotrin) 81 mg PO DAILY [facility] Last Admin: 06/10/17 09:54 Dose: 81 mg Betamethasone/Clotrimazole (Lotrisone) 1 gm TOP DAILY [facility] Last Admin: 06/10/17 10:48 Dose: 1 applic Enoxaparin Sodium (Lovenox) 70 mg SC DAILY [facility] Last Admin: 06/10/17 09:54 Dose: 70 mg Furosemide (Lasix) 40 mg IVP BID [facility] Last Admin: 06/10/17 09:55 Dose: 40 mg Cefepime HCl (Maxipime Iv 1 Gm Premix) 1 gm in 50 mls @ 100 mls/hr IVPB Q24H [facility] PRN Reason: Protocol Last Admin: 06/10/17 16:51 Dose: 100 mls/hr Metronidazole (Flagyl) 500 mg in 100 mls @ 100 mls/hr IVPB Q8 [facility] PRN Reason: Protocol Last Admin: 06/10/17 13:47 Dose: 100 mls/hr Insulin Aspart (Novolog) 13 unit SC AMHS [facility] Last Admin: 06/10/17 09:55 Dose: 13 unit Insulin Detemir (Levemir) 14 unit SC DAILY [facility] Last Admin: 06/10/17 09:55 Dose: 14 unit Metolazone (Zaroxolyn) 5 mg PO MWF [facility] Last Admin: 06/09/17 09:52 Dose: 5 mg Metoprolol Succinate (Toprol Xl) 25 mg PO BID [facility] Last Admin: 06/10/17 09:54 Dose: 25 mg Saccharomyces Boulardii (Florastor) 500 mg PO BIDPC [facility] Last Admin: 06/10/17 09:54 Dose: 500 mg Silver Sulfadiazine (Silvadene 1% 20 Gm) 1 ea TOP DAILY [facility] Last Admin: 06/10/17 10:49 Dose: 1 applic Physical Exam - Constitutional Appears: Well, Non-toxic, No Acute Distress - Extremities Exam Additional comments: Right leg focused exam. ACC: Right distal leg +1 pitting edema noted. Rubor on dependency noted. Anterior leg superficial ulceration extending over an area of 5.4 x 7cm with a 100% re-epithelializing base. Improved presentation of inflammation to area of concern. No ced-wound erythema, no active exudate. Absent mal-odor, no under- mining of margins. Neuro vascular status intact to right foot with pedal sensation intact, 2/4 DP and PT pulses and CRF to all digits <3 seconds within normal limits. - Neurological Exam Neurological exam: Alert, Oriented x3 - Psychiatric Exam Psychiatric exam: Normal Affect, Normal Mood Results - Vital Signs Recent Vital Signs: Last Vital Signs Temp 98.0 F 06/10/17 16:31 Pulse 80 06/10/17 16:31 Resp 20 06/10/17 16:31 BP 131/51 L 06/10/17 16:31 Pulse Ox 95 04/26/18 16:31 - Labs Result Diagrams: 06/06/17 15:35 06/09/17 07:32 Labs: Laboratory Results - last 24 hr 06/09/17 06/09/17 06/10/17 07:32 21:18 02:12 POC Glucose (mg/dL) 130 H 97 Total Protein (PEP) 6.4 Albumin (PEP) 2.7 L Wvyzc-2-Tgixjnqem 0.3 Myewq-6-Ddaxahkvy 1.1 H Vpih-8-Qomdfoor 0.4 Kvdr-7-Vfljzywf 0.6 H Gamma Globulins 1.2 Abnorm Protein Band 1 TEST NOT PERFORMED Abnorm Protein Band 2 TEST NOT PERFORMED Abnorm Protein Band 3 TEST NOT PERFORMED [facility]PH[facility]IE [facility] SPEP Interp See note 06/10/17 06/10/17 06/10/17 06:20 11:12 16:12 POC Glucose (mg/dL) 107 272 H 257 H Total Protein (PEP) Albumin (PEP) Crhcg-0-Zhfikdhvj Vpxsl-5-Vbuqvyhps Tjyq-7-Fhlzvfsk Cbca-8-Nyblmjiu Gamma Globulins Abnorm Protein Band 1 Abnorm Protein Band 2 Abnorm Protein Band 3 STEPHANIE & SPEP Interp Assessment & Plan - Assessment and Plan (Free Text) Assessment: 71 year old female with right anterior leg superficial venous stasis ulceration , improving. Plan: Pt seen and evalauted. Discussed with attending, Dr. Bishop, who endorsed the following plan. Charts, labs, and vitals reviewed. Continue IV antibiotics per infectious disease Continue local wound care per podiatry. Redressed wound site with 1:1 mixture of silvadene and lotrisone with compression dressing. To is tolerating well. pt diuresing well on iv lasix, monsivais in place. Podiatry will continue to follow while inhouse. Pt is stable form podiatry standpoint for discharge. To follow up with Dr. Bishop. - Date & Time Date: 06/10/17 Time: 16:10
--- NOTE | 2017-06-10 20:18 | CP.PCM.PN ---
Subjective - Date & Time of Evaluation Date of Evaluation: 06/10/17 Time of Evaluation: 20:14 - Subjective Subjective: INFECTIOUS DISEASE PROGRESS NOTE OTTONIEL RANGEL MD, FACP 5T 570-B CHART REVIEWED PT EXAMINED CASE DISCUSSED WITH DR HULL AND RN MY INITIAL ORDERS WHERE CLEARLY GIVEN TO DR CALLI HAMILTON FOR MAXIPIME 1GM IVPB Q 12 AND FLAGYL 500MG IVPB Q 8. 5T ISSUES NEED TO BE RESOLVED CLEARLY TOPICAL C/S ARE NOT SIGNIFICANT HER LEGS CONTINUE TO HEAL WITH TINCTURE OF TIME, REST, IV DIURETICS AND TOPICAL TREATMENT. Objective - Vital Signs/Intake and Output Vital Signs (last 24 hours): Temp Pulse Resp BP Pulse Ox 98.0 F 80 20 123/63 95 06/10/17 16:31 06/10/17 16:31 06/10/17 16:31 06/10/17 18:03 06/10/17 16:31 Intake and Output: 06/10/17 06/11/17 18:59 06:59 Intake Total 500 Output Total 1500 Balance -1000 - Medications Medications: Current Medications Aspirin (Ecotrin) [address] [facility] Last Admin: 06/10/17 09:54 Dose: 81 mg Betamethasone/Clotrimazole (Lotrisone) 1 gm TOP DAILY [facility] Last Admin: 06/10/17 10:48 Dose: 1 applic Enoxaparin Sodium (Lovenox) [address] [facility] Last Admin: 06/10/17 09:54 Dose: 70 mg Furosemide (Lasix) 40 mg IVP BID [facility] Last Admin: 06/10/17 18:03 Dose: 40 mg Cefepime HCl (Maxipime Iv 1 Gm Premix) 1 gm in 50 mls @ 100 mls/hr IVPB Q24H [facility] PRN Reason: Protocol Last Admin: 06/10/17 16:51 Dose: 100 mls/hr Metronidazole (Flagyl) 500 mg in 100 mls @ 100 mls/hr IVPB Q8 [facility] PRN Reason: Protocol Last Admin: 06/10/17 13:47 Dose: 100 mls/hr Insulin Aspart (Novolog) 13 unit SC [facility] Last Admin: 06/10/17 09:55 Dose: 13 unit Insulin Detemir (Levemir) 14 unit SC DAILY [facility] Last Admin: 06/10/17 09:55 Dose: 14 unit Metolazone (Zaroxolyn) [address] [facility] Last Admin: 06/09/17 09:52 Dose: 5 mg Metoprolol Succinate (Toprol Xl) [address] [facility] Last Admin: 06/10/17 18:04 Dose: 25 mg Saccharomyces Boulardii (Florastor) [address] [facility] Last Admin: 06/10/17 18:04 Dose: 500 mg Silver Sulfadiazine (Silvadene 1% 20 Gm) [address] [facility] Last Admin: 06/10/17 10:49 Dose: 1 applic - Labs Labs: 06/06/17 15:35 06/09/17 07:32 PT 11.1 SECONDS (9.7-12.2) 06/06/17 17:52 INR 1.0 06/06/17 17:52 APTT 30 SECONDS (21-34) 06/06/17 17:52 - Constitutional Appears: Non-toxic, No Acute Distress - Head Exam Head Exam: NORMAL INSPECTION - Eye Exam Eye Exam: Normal appearance - ENT Exam ENT Exam: Mucous Membranes Moist - Neck Exam Neck Exam: Normal Inspection - Respiratory Exam Respiratory Exam: NORMAL BREATHING PATTERN - Cardiovascular Exam Cardiovascular Exam: REGULAR RHYTHM - GI/Abdominal Exam GI & Abdominal Exam: Soft, Normal Bowel Sounds. absent: Tenderness - Exam Exam: NORMAL INSPECTION - Extremities Exam Additional comments: DESPITE COMUNICATIONS ISSUES, HER LEGS ARE HEALING. - Neurological Exam Neurological Exam: Alert, Awake - Psychiatric Exam Psychiatric exam: Normal Affect - Skin Skin Exam: Normal Color, Warm Assessment and Plan (1) Cellulitis of left lower leg Status: Chronic (2) Congestive heart failure (CHF) Status: Chronic (3) Atrial fibrillation with rapid ventricular response Status: Chronic (4) Dvt femoral (deep venous thrombosis) Status: Suspected
[2017-06-11] MEDS: metroNIDAZOLE IV 500 mg/100 ml 500 MG/100 ML BAG IVPB SCH ×3 (06:25→21:20)
[2017-06-11 08:13] LABS: BASO % 0.5 % (0.0-2.0); EOS # 0.2 K/uL (0.0-0.7); HEMOGLOBIN 10.8 g/dL (11.0-16.0); LYMPH # 1.5 K/uL (1.0-4.3); LYMPH % 28.5 % (20.0-40.0); MEAN CELL VOLUME 95.5 fL (81.0-99.0); MEAN CORPUSCULAR HEMOGLOBIN 32.9 pg (27.0-31.0); MEAN CORPUSCULAR HGB CONC 34.4 g/dL (33.0-37.0); MEAN PLATELET VOLUME 8.4 fL (7.2-11.7); MONO # 0.4 K/uL (0.0-0.8); MONO % 8.8 % (0.0-10.0); NEUT % 59.2 % (50.0-75.0); RBC 3.28 Mil/uL (3.80-5.20); RED CELL DISTRIBUTION WIDTH 13.4 % (11.5-14.5); WHITE BLOOD COUNT 5.1 K/uL (4.8-10.8)
[2017-06-11 08:21] LABS: BLOOD UREA NITROGEN 26 mg/dL (7-17); CALCIUM 8.6 mg/dl (8.6-10.4); GFR AFRICAN-AMERICAN > 60; GFR NON-AFRICAN AMERICAN > 60
[2017-06-11] MEDS: Metoprolol Succinate 25 mg XL Tab PO SCH ×2 (09:53→17:14)
[2017-06-11] MEDS: Saccharomyces Boulardi 250 mg Cap PO SCH ×2 (09:53→17:14)
[2017-06-11] MEDS: metOLazone 5 MG TAB PO SCH (09:53)
[2017-06-11] MEDS: (Novolog) Insulin Aspart, Recombinant 100 u/ml 10 ml vial SC SCH ×2 (09:54→21:55)
[2017-06-11] MEDS: Insulin Detemir 100 units/ml Vial (Levemir) SC SCH (09:54)
[2017-06-11] MEDS: Enoxaparin 80 mg Syringe SC SCH (09:55)
[2017-06-11] MEDS: Clotrimazole/Betamethasone Cream(15 gm) TOP SCH (09:58)
[2017-06-11] MEDS: Silver Sulfadiazine 1% Cream (20 gm) TOP SCH (10:00)
--- NOTE | 2017-06-11 12:39 | CP.PCM.PN ---
Subjective - Date & Time of Evaluation Date of Evaluation: 06/11/17 Time of Evaluation: 12:37 - Subjective Subjective: edema better.would much better.echo normal lv & rv.no pa pressures available. Objective - Vital Signs/Intake and Output Vital Signs (last 24 hours): Temp Pulse Resp BP Pulse Ox 97.7 F 78 20 146/67 95 06/11/17 07:50 06/11/17 07:50 06/11/17 07:50 06/11/17 09:53 06/11/17 07:50 Intake and Output: 06/11/17 06/11/17 06:59 18:59 Intake Total 800 Balance 800 - Medications Medications: Current Medications Aspirin (Ecotrin) 81 mg PO DAILY [facility] Last Admin: 06/11/17 09:53 Dose: 81 mg Betamethasone/Clotrimazole (Lotrisone) 1 gm TOP DAILY [facility] Last Admin: 06/11/17 09:58 Dose: 1 applic Enoxaparin Sodium (Lovenox) 70 mg SC DAILY [facility] Last Admin: 06/11/17 09:55 Dose: 70 mg Furosemide (Lasix) 40 mg IVP BID [facility] Last Admin: 06/11/17 09:53 Dose: 40 mg Cefepime HCl (Maxipime Iv 1 Gm Premix) 1 gm in 50 mls @ 100 mls/hr IVPB Q24H [facility] PRN Reason: Protocol Last Admin: 06/10/17 16:51 Dose: 100 mls/hr Metronidazole (Flagyl) 500 mg in 100 mls @ 100 mls/hr IVPB Q8 [facility] PRN Reason: Protocol Last Admin: 06/11/17 06:25 Dose: 100 mls/hr Insulin Aspart (Novolog) 13 unit SC AMHS [facility] Last Admin: 06/11/17 09:54 Dose: 13 unit Insulin Detemir (Levemir) 14 unit SC DAILY [facility] Last Admin: 06/11/17 09:54 Dose: 14 unit Metolazone (Zaroxolyn) 5 mg PO MWF [facility] Last Admin: 06/11/17 09:53 Dose: 5 mg Metoprolol Succinate (Toprol Xl) 25 mg PO BID [facility] Last Admin: 06/11/17 09:53 Dose: 25 mg Saccharomyces Boulardii (Florastor) 500 mg PO BIDPC [facility] Last Admin: 06/11/17 09:53 Dose: 500 mg Silver Sulfadiazine (Silvadene 1% 20 Gm) 1 ea TOP DAILY [facility] Last Admin: 06/11/17 10:00 Dose: 1 applic - Labs Labs: 06/11/17 08:02 06/11/17 08:02 PT 11.1 SECONDS (9.7-12.2) 06/06/17 17:52 INR 1.0 06/06/17 17:52 APTT 30 SECONDS (21-34) 06/06/17 17:52 - Constitutional Appears: No Acute Distress, Chronically Ill - Head Exam Head Exam: NORMOCEPHALIC - Neck Exam Neck Exam: Normal Inspection - Respiratory Exam Respiratory Exam: Clear to Ausculation Bilateral - Cardiovascular Exam Cardiovascular Exam: REGULAR RHYTHM - GI/Abdominal Exam GI & Abdominal Exam: Soft - Extremities Exam Extremities Exam: Pedal Edema - Neurological Exam Neurological Exam: Alert, Oriented x3 Assessment and Plan - Assessment and Plan (Free Text) Plan: chf.will give iv lasix.will d/c monsivais.
--- NOTE | 2017-06-11 12:58 | CP.PCM.PN ---
Subjective - Date & Time of Evaluation Date of Evaluation: 06/11/17 Time of Evaluation: 09:10 - Subjective Subjective: PT is seen and examined at bedside. Pt is comfortable. no acute events overnight. Rt Leg swelling and redness is improving. Pt denies leg itching or burning. Denies Fever, chills, sweating, chest pain, SOB, N/V/D. Assessment and Plan: 1. CHF, recurrent - O2 sat%: 95% RA - BNP within normal levels - Cxray 06/10: Moderate pulmonary venous congestion and mild interstitial pulmonary edema. - Continue lasix, Toprol, Metolazone 2. Obstructive sleep apnea - patient is non-compliant at home 3. Right leg lymphedema and cellulitis - WBC 06/11: 5.1 - Afebrile, LE U/s 06/07: no arterial insufficiency on LE bilaterally - Cont IV cefepime, flagyl as per ID recommendations -Cont diuretics as above - DVT prophylaxis - Continue wound care Objective - Vital Signs/Intake and Output Vital Signs (last 24 hours): Temp Pulse Resp BP Pulse Ox 97.7 F 78 20 133/67 95 06/11/17 07:50 06/11/17 07:50 06/11/17 07:50 06/11/17 12:49 06/11/17 07:50 Intake and Output: 06/11/17 06/11/17 06:59 18:59 Intake Total 800 Balance 800 - Medications Medications: Current Medications Aspirin (Ecotrin) 81 mg PO DAILY [facility] Last Admin: 06/11/17 09:53 Dose: 81 mg Betamethasone/Clotrimazole (Lotrisone) 1 gm TOP DAILY [facility] Last Admin: 06/11/17 09:58 Dose: 1 applic Enoxaparin Sodium (Lovenox) 70 mg SC DAILY [facility] Last Admin: 06/11/17 09:55 Dose: 70 mg Furosemide (Lasix) 40 mg IVP BID [facility] Last Admin: 06/11/17 09:53 Dose: 40 mg Furosemide (Lasix) 40 mg IVP ONCE ONE Stop: 06/12/17 07:01 Cefepime HCl (Maxipime Iv 1 Gm Premix) 1 gm in 50 mls @ 100 mls/hr IVPB Q24H [facility] PRN Reason: Protocol Last Admin: 06/10/17 16:51 Dose: 100 mls/hr Metronidazole (Flagyl) 500 mg in 100 mls @ 100 mls/hr IVPB Q8 [facility] PRN Reason: Protocol Last Admin: 06/11/17 06:25 Dose: 100 mls/hr Insulin Aspart (Novolog) 13 unit SC [facility] Last Admin: 06/11/17 09:54 Dose: 13 unit Insulin Detemir (Levemir) 14 unit SC DAILY [facility] Last Admin: 06/11/17 09:54 Dose: 14 unit Metolazone (Zaroxolyn) 5 mg PO MWF [facility] Last Admin: 06/11/17 09:53 Dose: 5 mg Metoprolol Succinate (Toprol Xl) 25 mg PO BID [facility] Last Admin: 06/11/17 09:53 Dose: 25 mg Saccharomyces Boulardii (Florastor) 500 mg PO BIDPC [facility] Last Admin: 06/11/17 09:53 Dose: 500 mg Silver Sulfadiazine (Silvadene 1% 20 Gm) 1 ea TOP DAILY [facility] Last Admin: 06/11/17 10:00 Dose: 1 applic Spironolactone (Aldactone) 25 mg PO DAILY [facility] - Labs Labs: 06/11/17 08:02 06/11/17 08:02 PT 11.1 SECONDS (9.7-12.2) 06/06/17 17:52 INR 1.0 06/06/17 17:52 APTT 30 SECONDS (21-34) 06/06/17 17:52 Assessment and Plan (1) DUNG (obstructive sleep apnea) Status: Acute (2) Dyspnea Status: Acute
--- NOTE | 2017-06-11 13:28 | CP.PCM.PN ---
Subjective - Date & Time of Evaluation Date of Evaluation: 06/11/17 Time of Evaluation: 13:27 - Subjective Subjective: improved leg swelling and redness ambulatory no f/c/sob/cp/dizziness/n/v/d/dysuria/hematuria/headache/rash on iv diuretics Objective - Vital Signs/Intake and Output Vital Signs (last 24 hours): Temp Pulse Resp BP Pulse Ox 97.7 F 78 20 133/67 95 06/11/17 07:50 06/11/17 07:50 06/11/17 07:50 06/11/17 12:49 06/11/17 07:50 Intake and Output: 06/11/17 06/11/17 06:59 18:59 Intake Total 800 Balance 800 - Medications Medications: Current Medications Aspirin (Ecotrin) 81 mg PO DAILY [facility] Last Admin: 06/11/17 09:53 Dose: 81 mg Betamethasone/Clotrimazole (Lotrisone) 1 gm TOP DAILY [facility] Last Admin: 06/11/17 09:58 Dose: 1 applic Enoxaparin Sodium (Lovenox) 70 mg SC DAILY [facility] Last Admin: 06/11/17 09:55 Dose: 70 mg Furosemide (Lasix) 40 mg IVP BID [facility] Last Admin: 06/11/17 09:53 Dose: 40 mg Furosemide (Lasix) 40 mg IVP ONCE ONE Stop: 06/12/17 07:01 Cefepime HCl (Maxipime Iv 1 Gm Premix) 1 gm in 50 mls @ 100 mls/hr IVPB Q24H [facility] PRN Reason: Protocol Last Admin: 06/10/17 16:51 Dose: 100 mls/hr Metronidazole (Flagyl) 500 mg in 100 mls @ 100 mls/hr IVPB Q8 [facility] PRN Reason: Protocol Last Admin: 06/11/17 06:25 Dose: 100 mls/hr Insulin Aspart (Novolog) 13 unit SC AMHS [facility] Last Admin: 06/11/17 09:54 Dose: 13 unit Insulin Detemir (Levemir) 14 unit SC DAILY [facility] Last Admin: 06/11/17 09:54 Dose: 14 unit Metolazone (Zaroxolyn) 5 mg PO MWF [facility] Last Admin: 06/11/17 09:53 Dose: 5 mg Metoprolol Succinate (Toprol Xl) 25 mg PO BID [facility] Last Admin: 06/11/17 09:53 Dose: 25 mg Saccharomyces Boulardii (Florastor) 500 mg PO BIDPC [facility] Last Admin: 06/11/17 09:53 Dose: 500 mg Silver Sulfadiazine (Silvadene 1% 20 Gm) 1 ea TOP DAILY [facility] Last Admin: 06/11/17 10:00 Dose: 1 applic Spironolactone (Aldactone) 25 mg PO DAILY [facility] - Labs Labs: 06/11/17 08:02 06/11/17 08:02 PT 11.1 SECONDS (9.7-12.2) 06/06/17 17:52 INR 1.0 06/06/17 17:52 APTT 30 SECONDS (21-34) 06/06/17 17:52 - Constitutional Appears: Other (obese nad) - Head Exam Head Exam: NORMAL INSPECTION, NORMOCEPHALIC - Eye Exam Eye Exam: Normal appearance, PERRL - ENT Exam ENT Exam: Mucous Membranes Moist, Normal Exam - Respiratory Exam Respiratory Exam: Clear to Ausculation Bilateral, NORMAL BREATHING PATTERN - Cardiovascular Exam Cardiovascular Exam: REGULAR RHYTHM, RRR - GI/Abdominal Exam GI & Abdominal Exam: Distended, Soft - Extremities Exam Extremities Exam: Pedal Edema (b/l 3+ edema R>L , erythema) - Neurological Exam Neurological Exam: Alert, Awake, Oriented x3 - Psychiatric Exam Psychiatric exam: Normal Affect, Normal Mood - Skin Skin Exam: Intact, Warm Assessment and Plan (1) Congestive heart failure (CHF) Status: Chronic (2) Leg edema Status: Acute (3) Atrial fibrillation with rapid ventricular response Status: Chronic - Assessment and Plan (Free Text) Assessment: diuretics as needed monitor renal function closely. electrolytes acceptable
[2017-06-11] MEDS: Cefepime IV 1 gm in Dextrose 1 GM/50 ML BAG IVPB SCH (16:47)
--- NOTE | 2017-06-11 17:49 | CARD ---
APPROVED REPORT EXAM: Two-dimensional and M-mode echocardiogram with Doppler and color Doppler. Other Information Quality : PoorRhythm : NSR INDICATION Congestive Heart Failure TDS RISK FACTORS Obesity M-Mode DIMENSIONS RVDd1.77 (2.1-3.2cm)Left Atrium (MM)3.69 (2.5-4.0cm) IVSd0.81 (0.7-1.1cm)Aortic Root2.80 (2.2-3.7cm) LVDd4.46 (4.0-5.6cm)Aortic Cusp Exc.2.14 (1.5-2.0cm) PWd1.03 (0.7-1.1cm)FS (%) 40 % LVDs2.66 (2.0-3.8cm)LVEF (%)71 (>50%) Mitral Valve MV E Qhakxzjf53.3cm/sMV A Rapjedmd916.2cm/sE/A ratio0.8 TDI E/Lateral E'0.0E/Medial E'0.0 Tricuspid Valve TR Peak Lzdrxwkq999kr/sTR Peak Gr.[id number] LEFT VENTRICLE The left ventricle is normal size. There is normal left ventricular wall thickness. The left ventricular ejection fraction is within the normal range. Septal hypokinesis Transmitral Doppler flow pattern is Grade I-abnormal relaxation pattern. RIGHT VENTRICLE The right ventricle is normal size. There is normal right ventricular wall thickness. The right ventricular systolic function is normal. ATRIA The left atrium size is normal. The right atrium size is normal. AORTIC VALVE The aortic valve is not well visualized. No aortic regurgitation is present. There is no aortic valvular stenosis. MITRAL VALVE The mitral valve is not well visualized. There is no mitral valve stenosis. There is no mitral valve regurgitation noted. TRICUSPID VALVE The tricuspid valve is normal in structure. There is no tricuspid valve regurgitation noted. GREAT VESSELS The aortic root is normal in size. The IVC was not visualized. PERICARDIAL EFFUSION There is a trace loculated anterior pericardial effusion. <Conclusion> Poor Echo window The left ventricle is normal size. There is normal left ventricular wall thickness. The left ventricular ejection fraction is within the normal range. Septal hypokinesis Transmitral Doppler flow pattern is Grade I-abnormal relaxation pattern.
--- NOTE | 2017-06-11 17:50 | CP.PCM.PN ---
Subjective - Date & Time of Evaluation Date of Evaluation: 06/11/17 Time of Evaluation: 12:25 - Subjective Subjective: Podiatry Progress Note- Dr. Bishop 71 year old female seen at bedside for right leg redness and swelling. Pt reports about a 80% improvement in symptoms with complete resolution of itching and burning to area of concern. Pt states that she is tolerating the compression dressing at this time. She denies any acute overnight event. Denies recent f/c/cp/sob/n/v/d. Objective - Vital Signs/Intake and Output Vital Signs (last 24 hours): Temp Pulse Resp BP Pulse Ox 98.1 F 78 20 153/79 H 97 06/11/17 15:00 06/11/17 15:00 06/11/17 15:00 06/11/17 17:14 06/11/17 15:00 Intake and Output: 06/11/17 06/11/17 06:59 18:59 Intake Total 800 600 Output Total 1200 Balance 800 -600 - Medications Medications: Current Medications Aspirin (Ecotrin) 81 mg PO DAILY [facility] Last Admin: 06/11/17 09:53 Dose: 81 mg Enoxaparin Sodium (Lovenox) 70 mg SC DAILY [facility] Last Admin: 06/11/17 09:55 Dose: 70 mg Furosemide (Lasix) 40 mg IVP BID [facility] Last Admin: 06/11/17 17:14 Dose: 40 mg Furosemide (Lasix) 40 mg IVP ONCE ONE Stop: 06/12/17 07:01 Cefepime HCl (Maxipime Iv 1 Gm Premix) 1 gm in 50 mls @ 100 mls/hr IVPB Q24H [facility] PRN Reason: Protocol Last Admin: 06/11/17 16:47 Dose: 100 mls/hr Metronidazole (Flagyl) 500 mg in 100 mls @ 100 mls/hr IVPB Q8 [facility] PRN Reason: Protocol Last Admin: 06/11/17 13:42 Dose: 100 mls/hr Insulin Aspart (Novolog) 13 unit SC [facility]HS [facility] Last Admin: 06/11/17 09:54 Dose: 13 unit Insulin Detemir (Levemir) 14 unit SC DAILY [facility] Last Admin: 06/11/17 09:54 Dose: 14 unit Metolazone (Zaroxolyn) 5 mg PO MWF [facility] Last Admin: 06/11/17 09:53 Dose: 5 mg Metoprolol Succinate (Toprol Xl) 25 mg PO BID [facility] Last Admin: 06/11/17 17:14 Dose: 25 mg Saccharomyces Boulardii (Florastor) 500 mg PO BIDPC [facility] Last Admin: 06/11/17 17:14 Dose: 500 mg Silver Sulfadiazine (Silvadene 1% 20 Gm) 1 ea TOP DAILY [facility] Last Admin: 06/11/17 10:00 Dose: 1 applic Spironolactone (Aldactone) 25 mg PO DAILY [facility] - Labs Labs: 06/11/17 08:02 06/11/17 08:02 PT 11.1 SECONDS (9.7-12.2) 06/06/17 17:52 INR 1.0 06/06/17 17:52 APTT 30 SECONDS (21-34) 06/06/17 17:52 - Constitutional Appears: Well, Non-toxic, No Acute Distress - Extremities Exam Additional comments: Right leg focused exam. ACC: Right distal leg +1 pitting edema noted. Rubor on dependency noted. Anterior leg erythematous patch over replaced prior superficial ulceration. Patch extends over an area of 4 x 6 cm with a 100% epithelializing base. Improved presentation of inflammation to area of concern. No ced-wound erythema , no active exudate. Absent mal-odor, no under-mining of margins. Neuro vascular status intact to right foot with pedal sensation intact, 2/4 DP and PT pulses and CRF to all digits <3 seconds within normal limits. - Neurological Exam Neurological Exam: Alert, Awake, Oriented x3 Assessment and Plan - Assessment and Plan (Free Text) Assessment: 71 year old female with right anterior leg superficial venous stasis ulceration , improving. Plan: Pt seen and evaluated with attending, Dr. Bishop, who was present. Charts, labs, and vitals reviewed. Continue IV antibiotics per infectious disease Continue local wound care per podiatry. Discontinued application of topical agents (1:1 mixture of silvadene and lotrisone) Continue only compression dressing. She is tolerating well. Pt greatly improved. Podiatry signing off. Pt is stable form podiatry standpoint for discharge. To follow up with Dr. Bishop in office.
--- NOTE | 2017-06-11 18:54 | CP.PCM.PN ---
Subjective - Date & Time of Evaluation Date of Evaluation: 06/11/17 Time of Evaluation: 18:50 - Subjective Subjective: INFECTIOUS DISEASE PROGRESS NOTE OTTONIEL RANGEL MD, FACP 5T 570-B 06/11/2017 CHART REVIEWED PT EXAMINED CASE DISCUSSED WITH DR HULL AND DR GILBERTO MOTA CLINICALLY HER WOUND IS HEALING NICELY WITH BED REST AND DIURETICS, WITH TOPICALLY MANAGEMENT. WOULD RECOMMEND SAME HOME WITH COMPRESSION DRESSINGS AND SILVERDINE NEEDED TOPICALLY. D/C IV ANTIBIOTICS TOMORROW, ALLOWED. CONSIDER DIET, EXERCISE AND SALT AND FLUID RESTRICTION IF APPLICABLE. Objective - Vital Signs/Intake and Output Vital Signs (last 24 hours): Temp Pulse Resp BP Pulse Ox 98.1 F 78 20 153/79 H 97 06/11/17 15:00 06/11/17 15:00 06/11/17 15:00 06/11/17 17:14 06/11/17 15:00 Intake and Output: 06/11/17 06/11/17 06:59 18:59 Intake Total 800 600 Output Total 1450 Balance 800 -850 - Medications Medications: Current Medications Aspirin (Ecotrin) 81 mg PO DAILY [facility] Last Admin: 06/11/17 09:53 Dose: 81 mg Enoxaparin Sodium (Lovenox) 70 mg SC DAILY [facility] Last Admin: 06/11/17 09:55 Dose: 70 mg Furosemide (Lasix) 40 mg IVP BID [facility] Last Admin: 06/11/17 17:14 Dose: 40 mg Furosemide (Lasix) 40 mg IVP ONCE ONE Stop: 06/12/17 07:01 Cefepime HCl (Maxipime Iv 1 Gm Premix) 1 gm in 50 mls @ 100 mls/hr IVPB Q24H [facility] PRN Reason: Protocol Last Admin: 06/11/17 16:47 Dose: 100 mls/hr Metronidazole (Flagyl) 500 mg in 100 mls @ 100 mls/hr IVPB Q8 [facility] PRN Reason: Protocol Last Admin: 06/11/17 13:42 Dose: 100 mls/hr Insulin Aspart (Novolog) 13 unit SC [facility] Last Admin: 06/11/17 09:54 Dose: 13 unit Insulin Detemir (Levemir) 14 unit SC DAILY [facility] Last Admin: 06/11/17 09:54 Dose: 14 unit Metolazone (Zaroxolyn) 5 mg PO MWF [facility] Last Admin: 06/11/17 09:53 Dose: 5 mg Metoprolol Succinate (Toprol Xl) 25 mg PO BID [facility] Last Admin: 06/11/17 17:14 Dose: 25 mg Saccharomyces Boulardii (Florastor) 500 mg PO BIDPC [facility] Last Admin: 06/11/17 17:14 Dose: 500 mg Silver Sulfadiazine (Silvadene 1% 20 Gm) 1 ea TOP DAILY [facility] Last Admin: 06/11/17 10:00 Dose: 1 applic Spironolactone (Aldactone) 25 mg PO DAILY [facility] - Labs Labs: 06/11/17 08:02 06/11/17 08:02 PT 11.1 SECONDS (9.7-12.2) 06/06/17 17:52 INR 1.0 06/06/17 17:52 APTT 30 SECONDS (21-34) 06/06/17 17:52 Assessment and Plan (1) Cellulitis of left lower leg Status: Resolved (2) Congestive heart failure (CHF) Status: Chronic (3) Atrial fibrillation with rapid ventricular response Status: Chronic (4) Dvt femoral (deep venous thrombosis) Status: Ruled-out
[2017-06-12] MEDS: metroNIDAZOLE IV 500 mg/100 ml 500 MG/100 ML BAG IVPB SCH (06:18)
[2017-06-12 07:24] LABS: BASO % 0.3 % (0.0-2.0); EOS # 0.2 K/uL (0.0-0.7); EOS % 2.5 % (0.0-4.0); HEMOGLOBIN 11.3 g/dL (11.0-16.0); LYMPH # 1.6 K/uL (1.0-4.3); LYMPH % 24.1 % (20.0-40.0); MEAN CELL VOLUME 94.9 fL (81.0-99.0); MEAN CORPUSCULAR HEMOGLOBIN 32.1 pg (27.0-31.0); MEAN CORPUSCULAR HGB CONC 33.8 g/dL (33.0-37.0); MEAN PLATELET VOLUME 8.5 fL (7.2-11.7); MONO # 0.5 K/uL (0.0-0.8); MONO % 7.8 % (0.0-10.0); NEUT # 4.3 K/uL (1.8-7.0); NEUT % 65.3 % (50.0-75.0); NRBC % 0.1 % (0.0-2.0); RBC 3.53 Mil/uL (3.80-5.20); RED CELL DISTRIBUTION WIDTH 13.5 % (11.5-14.5); WHITE BLOOD COUNT 6.7 K/uL (4.8-10.8)
[2017-06-12 07:58] VITALS: PULSE 73; RESP 18; TEMP 97.8; O2SAT 97
[2017-06-12 08:17] LABS: ALB/GLOB RATIO 0.9 (1.0-2.1); ALBUMIN 3.6 g/dL (3.5-5.0); CALCIUM 8.8 mg/dl (8.6-10.4)
[2017-06-12] MEDS: Saccharomyces Boulardi 250 mg Cap PO SCH (09:57)
[2017-06-12] MEDS: Enoxaparin 80 mg Syringe SC SCH (10:28)
[2017-06-12] MEDS: Insulin Detemir 100 units/ml Vial (Levemir) SC SCH (10:29)
[2017-06-12] MEDS: Metoprolol Succinate 25 mg XL Tab PO SCH (10:29)
[2017-06-12] MEDS: (Novolog) Insulin Aspart, Recombinant 100 u/ml 10 ml vial SC SCH (10:29)
[2017-06-12 10:30] VITALS: BP 109/64
--- NOTE | 2017-06-12 11:29 | CP.PCM.PN ---
Subjective - Date & Time of Evaluation Date of Evaluation: 06/12/17 Time of Evaluation: 11:27 - Subjective Subjective: feels better possible d/c today no sob no chest pain no rash good u/o appetite good no fever chronic edema no headache no sinus tenderness Objective - Vital Signs/Intake and Output Vital Signs (last 24 hours): Temp Pulse Resp BP Pulse Ox 97.8 F 73 18 109/64 97 06/12/17 07:00 06/12/17 07:00 06/12/17 07:00 06/12/17 10:28 06/12/17 07:00 Intake and Output: 06/12/17 06/12/17 06:59 18:59 Intake Total 900 Balance 900 - Medications Medications: Current Medications Aspirin (Ecotrin) 81 mg PO DAILY [facility] Last Admin: 06/12/17 10:29 Dose: 81 mg Enoxaparin Sodium (Lovenox) 70 mg SC DAILY [facility] Last Admin: 06/12/17 10:28 Dose: 70 mg Furosemide (Lasix) 40 mg IVP BID [facility] Last Admin: 06/12/17 10:28 Dose: 40 mg Cefepime HCl (Maxipime Iv 1 Gm Premix) 1 gm in 50 mls @ 100 mls/hr IVPB Q24H [facility] PRN Reason: Protocol Last Admin: 06/11/17 16:47 Dose: 100 mls/hr Metronidazole (Flagyl) 500 mg in 100 mls @ 100 mls/hr IVPB Q8 [facility] PRN Reason: Protocol Last Admin: 06/12/17 06:18 Dose: 100 mls/hr Insulin Aspart (Novolog) 13 unit SC [facility]HS [facility] Last Admin: 06/12/17 10:29 Dose: 13 unit Insulin Detemir (Levemir) 14 unit SC DAILY [facility] Last Admin: 06/12/17 10:29 Dose: 14 unit Metolazone (Zaroxolyn) 5 mg PO MWF [facility] Last Admin: 06/11/17 09:53 Dose: 5 mg Metoprolol Succinate (Toprol Xl) 25 mg PO BID [facility] Last Admin: 06/12/17 10:29 Dose: 25 mg Saccharomyces Boulardii (Florastor) 500 mg PO BIDPC [facility] Last Admin: 06/12/17 09:57 Dose: 500 mg Silver Sulfadiazine (Silvadene 1% 20 Gm) 1 ea TOP DAILY [facility] Last Admin: 06/11/17 10:00 Dose: 1 applic Spironolactone (Aldactone) 25 mg PO DAILY [facility] Last Admin: 06/12/17 10:29 Dose: 25 mg - Labs Labs: 06/12/17 07:15 06/12/17 07:15 PT 11.1 SECONDS (9.7-12.2) 06/06/17 17:52 INR 1.0 06/06/17 17:52 APTT 30 SECONDS (21-34) 06/06/17 17:52 - Constitutional Appears: Non-toxic, Chronically Ill - Head Exam Head Exam: ATRAUMATIC, NORMAL INSPECTION - Eye Exam Eye Exam: EOMI, Normal appearance - ENT Exam ENT Exam: Mucous Membranes Moist - Neck Exam Neck Exam: Full ROM - Cardiovascular Exam Cardiovascular Exam: Irregular Rhythm. absent: Rubs - GI/Abdominal Exam GI & Abdominal Exam: Distended, Soft. absent: Tenderness - Extremities Exam Extremities Exam: Pedal Edema Additional comments: leg wrapped Assessment and Plan - Assessment and Plan (Free Text) Assessment: fluid overload with cardiorenal syndrome good response to diuretics electrolytes stable being treated for leg cellulitis
--- NOTE | 2017-06-13 14:19 | DS ---
HISTORY AND HOSPITAL COURSE: This 71-year-old female was brought in with [id number] diastolic congestive heart failure. She also had a superficial cellulitis. 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 During hospitalization, the patient received IV Lasix with significant improvement. Local treatment for the wound, was also treated with local antibiotic and IV antibiotic as per Dr. Sandhu and Dr. Jacobo Bishop. She has done well. She has lost almost 7 pounds. Her hemoglobin on 06/12/2017 is 11.3. Her platelet counts are 295, white count is 6.7. Potassium is 4.2, BUN is 29, creatinine is 1.1. GFR is 59 mL. Accu-Cheks are below 200. Total protein is 7.6, albumin is 3.6. Chest x-ray had shown pulmonary venous congestion. She had arterial Doppler/duplex done, which did not show any evidence of PAD. Her AMAURY on the right leg was 1.2 and the left was 1.39. Also, there were no clots noted. DVT was negative in both legs. Echocardiogram done had shown normal size LA and LV and normal LV systolic function with LVEF of 70%. There was no mitral or tricuspid regurgitation. Her EKG is unremarkable. Her microalbumin was negative initially, but repeat one was 30.4. Her troponins were negative. She had a lipid profile done, which was unremarkable. The patient will be discharged today, to be followed up as an outpatient. She will follow up with her green lumber grader for diabetes. MEDICATIONS: Lasix was increased to 80 mg in the morning and 40 mg in the evening. Aldactone 25 mg p.o. Wednesday, Wednesday, Wednesday was added. She will continue on Levemir units daily, NovoLog as prescribed by green lumber grader, baby aspirin one a day. She is also on Toprol 25 mg p.o. twice a day. Zaroxolyn was discontinued. FINAL DIAGNOSES: [id number] congestive heart failure, hypertension, diabetes, obesity, cellulitis of the leg. Care of plan was explained to the patient's family and her , who is a physician. Wilson Bishop MD [facility] # [id number]
--- NOTE | 2017-06-14 15:55 | PCM.HF ---
Heart Failure Core Measure - Heart Failure Ejection Fraction: 40 % or Greater KRYSTAL Inhibitor Prescribed: No Contraindication/Reason for not providing: ON ARB Beta-Milton Prescribed: Metoprolol Succinate Angiotensin II Receptor Milton Prescribed: Yes AnticoagulationTherapy for Atrial Fibrillation/Atrialflutter: No Contraindication/Reason for not providing: NO AFIB Aldosterone Antagonist Prescribed: No Contraindication/Reason for not providing: EF > 40 Hydralazine Nitrate Prescribed: No Contraindication/Reason for not providing: EF > 40 Implantable Cardioverter Defibrillator Therapy: No Contraindication/Reason for not providing: EF > 40 Cardiac Resynchronization Therapy Prescribed: No Contraindication/Reason for not providing: EF > 40 - Follow up Will be discharged to: Home Follow Up Date (must be within 7 days from discharge): 06/17/17 Follow Up Time: 09:00
== END 2017-06-12 14:30 | disposition home or self-care (01) | DRG 291 ==
LOC: C.ER 14:11 → C.9E 16:38 → C.6T 17:13 → C.9E 17:35 → C.5S 17:50
PROVIDERS: ADMIT Internal Medicine Cardiovascular Disease; ATTEND Internal Medicine Cardiovascular Disease
DX: I13.0 Hypertensive heart and chronic kidney disease with heart failure and stage 1 through stage 4 chronic kidney disease, or unspecified chronic kidney disease (principal); I50.33 Acute on chronic diastolic (congestive) heart failure; L03.115 Cellulitis of right lower limb; L03.116 Cellulitis of left lower limb; E11.22 Type 2 diabetes mellitus with diabetic chronic kidney disease; L26 Exfoliative dermatitis; L97.509 Non-pressure chronic ulcer of other part of unspecified foot with unspecified severity; I48.0 Paroxysmal atrial fibrillation; N18.9 Chronic kidney disease, unspecified; E11.621 Type 2 diabetes mellitus with foot ulcer; I89.0 Lymphedema, not elsewhere classified; G47.33 Obstructive sleep apnea (adult) (pediatric); Z68.41 Body mass index [BMI] 40.0-44.9, adult; E66.9 Obesity, unspecified; K21.9 Gastro-esophageal reflux disease without esophagitis; M19.90 Unspecified osteoarthritis, unspecified site; Z91.19 Patient's noncompliance with other medical treatment and regimen; Z90.49 Acquired absence of other specified parts of digestive tract; Z79.84 Long term (current) use of oral hypoglycemic drugs

== ENCOUNTER 2018-05-19 18:28 | Inpatient (IN) | payer MEDICARE, OTHER ==
[2018-05-19 18:29] VITALS: PULSE 139
[2018-05-19 18:37] VITALS: BMI 44.5
[2018-05-19 19:56] LABS: BASO % 0.7 % (0.0-2.0); EOS # 0.1 K/uL (0.0-0.7); HEMOGLOBIN 11.5 g/dL (11.0-16.0); LYMPH % 32.4 % (20.0-40.0); MEAN CELL VOLUME 95.6 fL (81.0-99.0); MEAN CORPUSCULAR HEMOGLOBIN 31.1 pg (27.0-31.0); MEAN CORPUSCULAR HGB CONC 32.5 g/dL (33.0-37.0); MEAN PLATELET VOLUME 9.1 fL (7.2-11.7); MONO # 0.6 K/uL (0.0-0.8); MONO % 9.8 % (0.0-10.0); NEUT # 3.4 K/uL (1.8-7.0); NEUT % 56.1 % (50.0-75.0); RBC 3.68 Mil/uL (3.80-5.20); RED CELL DISTRIBUTION WIDTH 14.1 % (11.5-14.5); WHITE BLOOD COUNT 6.1 K/uL (4.8-10.8)
[2018-05-19 20:08] LABS: PROTHROMBIN TIME 11.3 SECONDS (9.7-12.2)
[2018-05-19 20:09] LABS: ALBUMIN 3.9 g/dL (3.5-5.0); ALT/SGPT 7 U/L (9-52); AST/SGOT 23 U/L (14-36); BLOOD UREA NITROGEN 38 mg/dL (7-17); CALCIUM 8.9 mg/dl (8.6-10.4); GFR NON-AFRICAN AMERICAN 37
--- NOTE | 2018-05-19 20:16 | C.PDOC ---
History Of Present Illness 72 year old female with PMHx of CHF presents with nonproductive cough and increasing SOB for the past 3 days associated with leg edema. Patient reports feeling better with standing. She has had chronic lymph edema to lower extremiti es but over the last 1-2 days has noticed ulcers with drainage. Denies fever. Patient reports recent flight from [place] 10 days ago, had outpatient doppler which was negative for DVT. PMD is Dr. Wilson Bishop Time Seen by Provider: 05/19/18 19:24 Chief Complaint (Nursing): Shortness Of Breath History Per: Patient History/Exam Limitations: no limitations Current Symptoms Are (Timing): Still Present Associated Symptoms: Other (SOB, nonproductive cough, leg edema, lower extremity ulcers) Recent travel outside of the [place]: No Past Medical History Reviewed: Historical Data, Nursing Documentation, Vital Signs Vital Signs: Last Vital Signs Temp 98.1 F 05/19/18 18:37 Pulse 110 H 05/19/18 18:37 Resp 24 05/19/18 18:37 BP 160/71 H 05/19/18 18:37 Pulse Ox 94 L 05/19/18 18:37 - Medical History PMH: CHF, HTN, Chronic Kidney Disease Surgical History: Cholecystectomy Family History: States: Unknown Family Hx - Social History Hx Alcohol Use: No Hx Substance Use: No - Immunization History Hx Tetanus Toxoid Vaccination: No Hx Influenza Vaccination: Yes Hx Pneumococcal Vaccination: Yes Review Of Systems Except As Marked, All Systems Reviewed And Found Negative. Constitutional: Negative for: Fever Cardiovascular: Negative for: Chest Pain Physical Exam - Physical Exam Additional Physical Exam Comments: Constitutional: No acute distress. Head: Normocephalic. Atraumatic. Eyes: PERRL. ENT: Moist mucous membranes. Neck: Supple. Cardiovascular: Tachycardic Chest: No tenderness. Respiratory: Bibasilar crackles GI: Soft. Nontender. Nondistended. Back: No CVA tenderness. Musculoskeletal: Lower extremity edema, right greater than left. Skin: Anterior still ulceration with drainage and posterior thigh indurated fluc tuant abscess. Neurologic: Alert, no focal deficit. ED Course And Treatment - Laboratory Results Result Diagrams: 05/19/18 19:50 05/19/18 19:50 Lab Results: PT 11.3 SECONDS (9.7-12.2) 05/19/18 19:50 INR 1.0 05/19/18 19:50 APTT 36 SECONDS (21-34) H 05/19/18 19:50 Total Bilirubin 0.3 mg/dL (0.2-1.3) 05/19/18 19:50 AST 23 U/L (14-36) 05/19/18 19:50 ALT 7 U/L (9-52) L D 05/19/18 19:50 Alkaline Phosphatase 112 U/L (38-126) 05/19/18 19:50 Total Protein 7.8 g/dL (6.3-8.3) 05/19/18 19:50 Albumin 3.9 g/dL (3.5-5.0) 05/19/18 19:50 Globulin 3.8 gm/dL (2.2-3.9) 05/19/18 19:50 Albumin/Globulin Ratio 1.0 (1.0-2.1) 05/19/18 19:50 O2 Sat by Pulse Oximetry: 94 (Room air) Pulse Ox Interpretation: Normal Medical Decision Making Medical Decision Making: EKG: NSR, 100 bpm, no ST/T wave changes CXR shows congestion, no PNA. Discussed case with Dr. Bishop in ED, agrees with Compa MORRELL with lasix. He states he will contact Dr. Nunez for drainage of abscess. Disposition Discussed With : Wilson Bishop Doctor Will See Patient In The: ED - Disposition Disposition: HOSPITALIZED Disposition Time: 20:40 Condition: GUARDED Forms: [facility] (Jordanian) - Clinical Impression Clinical Impression: CHF exacerbation, Abscess, Acute renal insufficiency - Scribe Statement The provider has reviewed the documentation as recorded by the Scribgodfrey Nugent All medical record entries made by the Charlieibe were at my direction and personally dictated by me. I have reviewed the chart and agree that the record accurately reflects my personal performance of the history, physical exam, medical decision making, and the department course for this patient. I have also personally directed, reviewed, and agree with the discharge instructions and disposition.
[2018-05-19 20:20] LABS: B-TYPE NATRIURETIC PEPTIDE 278 pg/mL (0-900)
[2018-05-19] MEDS ORDERED: Vancomycin 1 gm/NS 200 ml 1 GM/200 ML BAG IVPB STA (20:36)
[2018-05-19] MEDS ORDERED: Vancomycin 1 GM 1 GM/250 ML BAG IVPB ONE (20:45)
[2018-05-19] MEDS ORDERED: cefTRIAXone 2 GM in Sodium Chloride 0.9% 100 ML IVPB STA (20:46)
[2018-05-19] MEDS ORDERED: Simethicone 80 mg Chewtab PO STA (21:34)
[2018-05-19 22:15] LABS: SQUAMOUS EPITHIAL < 1 /hpf (0-5); URINE BACTERIA RARE (<OCC); URINE BILIRUBIN NEGATIVE (NEGATIVE); URINE BLOOD NEGATIVE (NEGATIVE); URINE CLARITY Hazy (Clear); URINE COLOR Yellow (YELLOW); URINE GLUCOSE (UA) NORMAL (Normal); URINE LEUKOCYTE ESTERASE NEG Leu/uL (Negative); URINE PROTEIN NEGATIVE (NEGATIVE); URINE UROBILINOGEN NORMAL mg/dL (0.2-1.0)
[2018-05-19] MEDS: Promethazine/Cod 6.25mg-10mg/5ml Syr UD PO PRN (22:29)
[2018-05-20] MEDS ORDERED: guaiFENesin DM 200 mg-20 mg/10 ml UD PO STA (01:30)
[2018-05-20] MEDS ORDERED: Albuterol-Ipratrop 3 mg / 0.5 (3 ml) UD INH STA (01:31)
--- NOTE | 2018-05-20 01:55 | CP.PCM.CON ---
History of Present Illness - History of Present Illness History of Present Illness: Surgery Consult note- Dr. Camarena (Covering for Dr. Nunez) Reason for consult: R. Thigh Abscess 72F pmhx significant for CAD, CHF, HTN, IDDM admitted to [facility] for new onset shortness of breath at rest. Surgery was consulted for R. Thigh abscess. Patient states first noticed pain around the area 2 days ago. Denies drainage or blood from the area. Denies other abscesses in the past. Denies: fevers, chills, nausea, vomiting, diarrhea PMH: stated above PSH: open cholecystectomy, multiple c-sections ALL: NKDA SocialHx: denies tobacco, etoh, recreational drug use FH: non-contributory Review of Systems - Review of Systems All systems: reviewed and no additional remarkable complaints except - Constitutional Constitutional: As Per HPI Past Patient History - Tetanus Immunizations Tetanus Immunization: Unknown - Past Medical History & Family History Past Medical History?: Yes - Past Social History Smoking Status: Never Smoked - CARDIAC Hx Congestive Heart Failure: Yes Hx Hypertension: Yes - PULMONARY Hx Respiratory Disorders: No - NEUROLOGICAL Hx Neurological Disorder: No - HEENT Hx HEENT Problems: No - RENAL Hx Chronic Kidney Disease: Yes - ENDOCRINE/METABOLIC Hx Endocrine Disorders: Yes Hx Diabetes Mellitus Type 2: Yes - HEMATOLOGICAL/ONCOLOGICAL Hx Blood Disorders: No - INTEGUMENTARY Hx Dermatological Problems: Yes Hx Cellulitis: Yes - MUSCULOSKELETAL/RHEUMATOLOGICAL Hx Musculoskeletal Disorders: Yes Hx Osteoarthritis: Yes - GASTROINTESTINAL Hx Gastrointestinal Disorders: No - GENITOURINARY/GYNECOLOGICAL Hx Genitourinary Disorders: No - PSYCHIATRIC Hx Substance Use: No - SURGICAL HISTORY Hx Cholecystectomy: Yes - ANESTHESIA Hx Anesthesia: Yes Hx Anesthesia Reactions: No Hx Malignant Hyperthermia: No Meds Allergies/Adverse Reactions: Allergies Allergy/AdvReac Type Severity Reaction Status Date / Time No Known Allergies Allergy Verified 05/19/18 18:36 - Medications Medications: Current Medications Ascorbic Acid (Vitamin C 500 Mg Tab) 500 mg PO DAILY [facility] Aspirin (Ecotrin) 81 mg PO DAILY [facility] Enoxaparin Sodium (Lovenox) 40 mg SC BID [facility] Ferrous Sulfate (Feosol) 325 mg PO DAILY [facility] Furosemide (Lasix) 40 mg IVP DAILY [facility] Insulin Aspart (Novolog) 13 unit SC [facility] Insulin Detemir (Levemir) 13 unit SC [facility] Levothyroxine Sodium (Synthroid) 75 mcg PO DAILY@0630 [facility] Losartan Potassium (Cozaar) 50 mg PO DAILY [facility] Metolazone (Zaroxolyn) 5 mg PO MWF [facility] Metoprolol Succinate (Toprol Xl) 25 mg PO BID [facility] Promethazine HCl/Codeine (Phenergan/Codeine Oral Syrup) 5 ml PO Q4 PRN PRN Reason: Cough Last Admin: 05/19/18 22:29 Dose: 5 ml Zinc Sulfate (Zinc Sulfate 220 Mg Cap) 50 mg PO DAILY [facility] Physical Exam - Constitutional Appears: Non-toxic, No Acute Distress - Head Exam Head Exam: ATRAUMATIC - Eye Exam Eye Exam: EOMI. absent: Scleral icterus - ENT Exam ENT Exam: Mucous Membranes Moist - Respiratory Exam Respiratory Exam: Wheezes, NORMAL BREATHING PATTERN. absent: Accessory Muscle Use - Cardiovascular Exam Cardiovascular Exam: REGULAR RHYTHM. absent: Bradycardia, Tachycardia - GI/Abdominal Exam GI & Abdominal Exam: Soft. absent: Distended, Firm, Guarding, Hernia, Rigid, Tenderness Additional comments: abd scars healed well - Expanded Lower Extremities Exam Right Upper Leg exam: erythema (small posterior induration measuring approx 5cm. no p urulent drainage, small area of fluctuance) - Neurological Exam Neurological exam: Alert, Oriented x3 - Psychiatric Exam Psychiatric exam: Normal Affect - Skin Skin Exam: Intact, Warm Results - Vital Signs Recent Vital Signs: Last Vital Signs Temp 98.1 F 05/20/18 01:05 Pulse 72 05/20/18 01:05 Resp 18 05/20/18 01:05 BP 105/57 L 05/20/18 01:05 Pulse Ox 94 L 05/20/18 01:05 - Labs Result Diagrams: 05/19/18 19:50 05/19/18 19:50 Labs: Laboratory Results - last 24 hr 05/19/18 05/19/18 05/19/18 19:50 19:50 19:50 WBC 6.1 RBC 3.68 L Hgb 11.5 Hct 35.2 MCV 95.6 MCH 31.1 H MCHC 32.5 L RDW 14.1 Plt Count 222 MPV 9.1 Neut % (Auto) 56.1 Lymph % (Auto) 32.4 White % (Auto) 9.8 Eos % (Auto) 1.0 Baso % (Auto) 0.7 Neut # (Auto) 3.4 Lymph # (Auto) 2.0 White # (Auto) 0.6 Eos # (Auto) 0.1 Baso # (Auto) 0.0 PT 11.3 INR 1.0 APTT 36 H Sodium 133 Potassium 5.4 H Chloride 99 Carbon Dioxide 26 Anion Gap 12 BUN 38 H Creatinine 1.4 H Est GFR ( Amer) 45 Est GFR (Non-Af Amer) 37 Random Glucose 349 H D Calcium 8.9 Phosphorus 4.1 Magnesium 1.9 Total Bilirubin 0.3 AST 23 ALT 7 L D Alkaline Phosphatase 112 Total Creatine Kinase 67 CK-MB (Mass) 1.90 Troponin I < 0.0120 NT-Pro-B Natriuret Pep 278 Total Protein 7.8 Albumin 3.9 Globulin 3.8 Albumin/Globulin Ratio 1.0 Urine Color Urine Clarity Urine pH Ur Specific Waldron Urine Protein Urine Glucose (UA) Urine Ketones Urine Blood Urine Nitrate Urine Bilirubin Urine Urobilinogen Ur Leukocyte Esterase Urine WBC (Auto) Urine RBC (Auto) Ur Squamous Epith Cells Urine Bacteria 05/19/18 22:01 WBC RBC Hgb Hct MCV MCH MCHC RDW Plt Count MPV Neut % (Auto) Lymph % (Auto) White % (Auto) Eos % (Auto) Baso % (Auto) Neut # (Auto) Lymph # (Auto) White # (Auto) Eos # (Auto) Baso # (Auto) PT INR APTT Sodium Potassium Chloride Carbon Dioxide Anion Gap BUN Creatinine Est GFR ( Amer) Est GFR (Non-Af Amer) Random Glucose Calcium Phosphorus Magnesium Total Bilirubin AST ALT Alkaline Phosphatase Total Creatine Kinase CK-MB (Mass) Troponin I NT-Pro-B Natriuret Pep Total Protein Albumin Globulin Albumin/Globulin Ratio Urine Color Yellow Urine Clarity Hazy Urine pH 5.0 Ur Specific Waldron 1.006 Urine Protein Negative Urine Glucose (UA) Normal Urine Ketones Negative Urine Blood Negative Urine Nitrate Negative Urine Bilirubin Negative Urine Urobilinogen Normal Ur Leukocyte Esterase Neg Urine WBC (Auto) 1 Urine RBC (Auto) < 1 Ur Squamous Epith Cells < 1 Urine Bacteria Rare Assessment & Plan - Assessment and Plan (Free Text) Assessment: 72F admitted for shortness of breath, w/ Right Thigh abscess Plan: - recommend warm compresses - IV Abx - continue medical management - will re-evaluate in AM to determine if surgical intervention is required - further recs per Dr. Camarena covering for Dr. Mayra Thomas PGY2
--- NOTE | 2018-05-20 02:35 | HP ---
HISTORY OF PRESENT ILLNESS: This is a 72-year-old [place] female, was brought in with increasing edema, shortness of breath, ulcer on both the legs. This has been getting worse over past two to three days. The patient has a longstanding history of hypertension, diabetes, chronic kidney disease, sleep apnea. Previous echocardiogram had shown normal LV systolic function, LV diastolic dysfunction and normal coronaries on the cath couple of years ago. She has been admitted in the past on repeated occasions including in [place] for CHF. She also has episodes of atrial fibrillation but has been in sinus rhythm for past year or so. She has been closely followed by traffic chief, hematology oncology consultant Dr. Silva, myself. MEDICATIONS: At home include insulin, Zaroxolyn, Lasix. She is on Micardis. Also, she is on Ranexa 500 mg p.o. twice a day. PERSONAL HISTORY: Does not smoke, does not drink. , lives with who is a physician. ALLERGIES: DENIED. FAMILY HISTORY: Negative for premature coronary artery disease. REVIEW OF SYSTEMS: Generalized weakness. Ambulation is markedly curtailed. She is not able to walk from bed to bathroom without support. No fever, no chills. No visual disturbances. Cough nonproductive. No hemoptysis. No chest pain. Shortness of breath at rest. Sleeps on two to three pillows. Increasing edema. No hematemesis. No melena. No urinary complaints. Multiple ulcerations and increasing edema on the legs. Knee pains and back pains. History of depression. Neurologically, negative for TIAs or CVAs. No history of rheumatic fever. PAST MEDICAL HISTORY: Admitted on multiple occasions for congestive heart failure or diastolic dysfunction. No valvular heart disease, normal coronary arteries.. History of atrial fibrillation in the past. She has refused to take any blood thinners. PHYSICAL EXAMINATION: GENERAL: Shows elderly [place] female, chronically sick looking, in no acute distress. VITAL SIGNS: She is 5 feet 1 inch and weighs 228 pounds. Blood pressure is 140/80, heart rate of 88, regular sinus on the telemetry, respiratory rate of 20, temperature of 98.8. HEENT: Head is normocephalic. Eyes: No pallor, no icterus. NECK: Supple. LUNGS: Show mild expiratory wheeze. HEART: Sounds are distant. No definite gallops or murmurs. ABDOMEN: Distended, soft, nontender. EXTREMITIES: Three to 4+ edema on both the legs up to the thighs. Ulcer and abscess is noted in the right back of the thigh and small ulcer is noted in the left foot. Dorsalis pedis are feeble but palpable. NEUROLOGICAL: No focal signs. LABORATORY DATA: EKG showed sinus rhythm, nothing acute. BMP is noted. BUN is 35, creatinine is 1.4. Chest x-ray shows pulmonary vascular congestion. ASSESSMENT: A 72-year-old female with history of diabetes, hypertension, chronic kidney disease, has presented with ulcers in the legs, abscess ,and mild congestive heart failure. PLAN: At this point to admit to telemetry, IV diuretics, IV antibiotic including Rocephin and vancomycin. Care of plan was discussed with the patient's who was at the bedside. It was also discussed with Dr. Sandhu. We will obtain surgical consult in the morning with Dr. Nunez and podiatry consult with Dr. Jacobo Bishop. Wilson Bishop MD
[2018-05-20] MEDS: Promethazine/Cod 6.25mg-10mg/5ml Syr UD PO PRN ×3 (06:10→21:23)
[2018-05-20] MEDS: Levothyroxine 75 MCG TAB PO SCH (06:10)
[2018-05-20] MEDS ORDERED: Fluticasone-Vilanterol 100/25mcg Diskus INH SCH (08:00)
[2018-05-20 08:15] LABS: CALCIUM 8.3 mg/dl (8.6-10.4)
[2018-05-20] MEDS: Albuterol-Ipratrop 3 mg / 0.5 (3 ml) UD INH SCH ×3 (08:30→20:19)
[2018-05-20] MEDS ORDERED: metOLazone 5 MG TAB PO SCH (09:00)
[2018-05-20] MEDS ORDERED: (Novolog) Insulin Aspart, Recombinant 100 u/ml 10 ml vial SC SCH (10:00)
[2018-05-20] MEDS ORDERED: Enoxaparin 40 mg Syringe SC SCH (10:00)
[2018-05-20] MEDS: Insulin Detemir 100 units/ml Vial (Levemir) SC SCH ×2 (10:02→22:08)
[2018-05-20] MEDS: Metoprolol Succinate 25 mg XL Tab PO SCH ×2 (10:02→18:05)
[2018-05-20] MEDS: (Novolog) Insulin Aspart, Recombinant 100 u/ml 10 ml vial SC SCH ×5 (10:03→21:48)
--- NOTE | 2018-05-20 10:32 | RAD ---
Date of service: 05/19/2018 HISTORY: dyspnea COMPARISON: 06/10/2017. FINDINGS: LUNGS: The lungs are hyperinflated and there is peribronchial thickening with chronic changes in both lungs. No focal consolidation. PLEURA: No pleural effusions or pneumothorax. CARDIOVASCULAR: The heart is normal in size. No aortic atherosclerotic calcifications present. OSSEOUS STRUCTURES: Within normal limits for the patient's age. VISUALIZED UPPER ABDOMEN: Normal. OTHER FINDINGS: None. IMPRESSION: No active pulmonary disease. COPD.
--- NOTE | 2018-05-20 11:54 | CP.PCM.PN ---
Subjective - Date & Time of Evaluation Date of Evaluation: 05/20/18 Time of Evaluation: 11:52 - Subjective Subjective: sob & wheeze ++.seen by surgeon. Objective - Vital Signs/Intake and Output Vital Signs (last 24 hours): Temp Pulse Resp BP Pulse Ox 97.8 F 87 20 106/62 94 L 05/20/18 07:00 05/20/18 08:31 05/20/18 07:00 05/20/18 10:01 05/20/18 07:00 Intake and Output: 05/20/18 05/20/18 06:59 18:59 Intake Total 240 Balance 240 - Medications Medications: Current Medications Albuterol/Ipratropium (Duoneb 3 Mg/0.5 Mg (3 Ml) Ud) 3 ml INH RQ6 [facility] Last Admin: 05/20/18 08:30 Dose: 3 ml Ascorbic Acid (Vitamin C 500 Mg Tab) 500 mg PO DAILY [facility] Last Admin: 05/20/18 10:01 Dose: 500 mg Aspirin (Ecotrin) 81 mg PO DAILY [facility] Last Admin: 05/20/18 10:02 Dose: 81 mg Ferrous Sulfate (Feosol) 325 mg PO DAILY [facility] Last Admin: 05/20/18 10:01 Dose: 325 mg Fluticasone/Vilanterol (Breo Ellipta 100-25 Mcg Inh) 1 puff INH RQD [facility] Furosemide (Lasix) 40 mg IVP BID [facility] Last Admin: 05/20/18 10:01 Dose: 40 mg Heparin Sodium (Porcine) (Heparin) 5,000 units SC Q12 [facility] Last Admin: 05/20/18 10:02 Dose: 5,000 units Insulin Aspart (Novolog) 13 unit SC [facility] Last Admin: 05/20/18 10:04 Dose: Not Given Insulin Detemir (Levemir) 13 unit SC [facility] Last Admin: 05/20/18 10:02 Dose: 13 unit Levothyroxine Sodium (Synthroid) 75 mcg PO DAILY@0630 [facility] Last Admin: 05/20/18 06:10 Dose: 75 mcg Losartan Potassium (Cozaar) 50 mg PO DAILY [facility] Last Admin: 05/20/18 10:01 Dose: 50 mg Metolazone (Zaroxolyn) 5 mg PO MWF [facility] Last Admin: 05/20/18 10:00 Dose: 5 mg Metoprolol Succinate (Toprol Xl) 25 mg PO BID [facility] Last Admin: 05/20/18 10:02 Dose: Not Given Promethazine HCl/Codeine (Phenergan/Codeine Oral Syrup) 5 ml PO Q4 PRN PRN Reason: Cough Last Admin: 05/20/18 10:25 Dose: 5 ml Zinc Sulfate (Zinc Sulfate 220 Mg Cap) 50 mg PO DAILY [facility] Last Admin: 05/20/18 10:06 Dose: 50 mg - Labs Labs: 05/19/18 19:50 05/20/18 07:49 PT 11.3 SECONDS (9.7-12.2) 05/19/18 19:50 INR 1.0 05/19/18 19:50 APTT 36 SECONDS (21-34) H 05/19/18 19:50 - Constitutional Appears: No Acute Distress, Chronically Ill - Head Exam Head Exam: NORMOCEPHALIC - Neck Exam Neck Exam: Normal Inspection - Respiratory Exam Respiratory Exam: Wheezes - Cardiovascular Exam Cardiovascular Exam: REGULAR RHYTHM - GI/Abdominal Exam GI & Abdominal Exam: Soft - Extremities Exam Extremities Exam: Pedal Edema - Neurological Exam Neurological Exam: Alert, Oriented x3 - Skin Skin Exam: Erythema - Additional Findings Additional findings: both legs. Assessment and Plan - Assessment and Plan (Free Text) Assessment: cellulitis,copd,sleep apmnoea.diastolic heart failure. plan is to ct iv lasix,id & pul f/u.
--- NOTE | 2018-05-20 14:22 | CP.PCM.CON ---
History of Present Illness - History of Present Illness History of Present Illness: 72F pmhx significant for CAD, CHF- diastolic heart failure, HTN, IDDM type 2, CKD stage 3, hypothyroidism admitted to [facility] for new onset shortness of breath at rest. Surgery was consulted for thigh abscess, has cellulitis right thigh related to swelling. Patient states first noticed pain around the area 2 days ago. Denies drainage or blood from the area. Denies other abscesses in the past. Denies: fevers, chills, nausea, vomiting, diarrhea PMH: stated above, CKD stage 3 PSH: open cholecystectomy, multiple c-sections ALL: NKDA SocialHx: denies tobacco, etoh, recreational drug use FH: non-contributory, no CKD Review of Systems - Review of Systems Systems not reviewed;Unavailable: Altered Mental Status Past Patient History - Tetanus Immunizations Tetanus Immunization: Unknown - Past Medical History & Family History Past Medical History?: Yes Past Family History: Reviewed and not pertinent - Past Social History Smoking Status: Never Smoked Chewing Tobacco Use: No Cigar Use: No Alcohol: None Drugs: Denies Home Situation {Lives}: With Family - CARDIAC Hx Congestive Heart Failure: Yes Hx Hypertension: Yes - PULMONARY Hx Respiratory Disorders: No - NEUROLOGICAL Hx Neurological Disorder: No - HEENT Hx HEENT Problems: No - RENAL Hx Chronic Kidney Disease: Yes - ENDOCRINE/METABOLIC Hx Endocrine Disorders: Yes Hx Diabetes Mellitus Type 2: Yes - HEMATOLOGICAL/ONCOLOGICAL Hx Blood Disorders: No - INTEGUMENTARY Hx Dermatological Problems: Yes Hx Cellulitis: Yes - MUSCULOSKELETAL/RHEUMATOLOGICAL Hx Musculoskeletal Disorders: Yes Hx Osteoarthritis: Yes - GASTROINTESTINAL Hx Gastrointestinal Disorders: No - GENITOURINARY/GYNECOLOGICAL Hx Genitourinary Disorders: No - PSYCHIATRIC Hx Substance Use: No - SURGICAL HISTORY Hx Cholecystectomy: Yes - ANESTHESIA Hx Anesthesia: Yes Hx Anesthesia Reactions: No Hx Malignant Hyperthermia: No Meds Allergies/Adverse Reactions: Allergies Allergy/AdvReac Type Severity Reaction Status Date / Time No Known Allergies Allergy Verified 05/19/18 18:36 - Medications Medications: Current Medications Albuterol/Ipratropium (Duoneb 3 Mg/0.5 Mg (3 Ml) Ud) 3 ml INH RQ6 [facility] Last Admin: 05/20/18 08:30 Dose: 3 ml Ascorbic Acid (Vitamin C 500 Mg Tab) 500 mg PO DAILY [facility] Last Admin: 05/20/18 10:01 Dose: 500 mg Aspirin (Ecotrin) 81 mg PO DAILY [facility] Last Admin: 05/20/18 10:02 Dose: 81 mg Ferrous Sulfate (Feosol) 325 mg PO DAILY [facility] Last Admin: 05/20/18 10:01 Dose: 325 mg Fluticasone/Vilanterol (Breo Ellipta 100-25 Mcg Inh) 1 puff INH RQD [facility] Furosemide (Lasix) 40 mg IVP BID [facility] Last Admin: 05/20/18 10:01 Dose: 40 mg Heparin Sodium (Porcine) (Heparin) 5,000 units SC Q12 [facility] Last Admin: 05/20/18 10:02 Dose: 5,000 units Insulin Aspart (Novolog) 0 unit SC ACHS [facility]; Protocol Last Admin: 05/20/18 12:52 Dose: 5 unit Insulin Detemir (Levemir) 13 unit SC AMHS [facility] Last Admin: 05/20/18 10:02 Dose: 13 unit Levothyroxine Sodium (Synthroid) 75 mcg PO DAILY@0630 [facility] Last Admin: 05/20/18 06:10 Dose: 75 mcg Losartan Potassium (Cozaar) 50 mg PO DAILY [facility] Last Admin: 05/20/18 10:01 Dose: 50 mg Metolazone (Zaroxolyn) 5 mg PO MWF [facility] Last Admin: 05/20/18 10:00 Dose: 5 mg Metoprolol Succinate (Toprol Xl) 25 mg PO BID [facility] Last Admin: 05/20/18 10:02 Dose: Not Given Promethazine HCl/Codeine (Phenergan/Codeine Oral Syrup) 5 ml PO Q4 PRN PRN Reason: Cough Last Admin: 05/20/18 10:25 Dose: 5 ml Zinc Sulfate (Zinc Sulfate 220 Mg Cap) 50 mg PO DAILY [facility] Last Admin: 05/20/18 10:06 Dose: 50 mg Physical Exam - Constitutional Appears: No Acute Distress, Confused, Chronically Ill - Head Exam Head Exam: ATRAUMATIC, NORMAL INSPECTION - Eye Exam Eye Exam: EOMI, Normal appearance - Neck Exam Neck exam: Positive for: Normal Inspection. Negative for: Tenderness - Respiratory Exam Respiratory Exam: Rhonchi, Wheezes - Cardiovascular Exam Cardiovascular Exam: REGULAR RHYTHM, +S1 - GI/Abdominal Exam GI & Abdominal Exam: Distended, Soft. absent: Tenderness - Extremities Exam Extremities exam: Positive for: pedal edema, tenderness - Neurological Exam Neurological exam: CN II-XII Intact - Skin Skin Exam: Dry, Erythema, Warm Results - Vital Signs Recent Vital Signs: Last Vital Signs Temp 97.8 F 05/20/18 07:00 Pulse 87 05/20/18 08:31 Resp 20 05/20/18 07:00 BP 106/62 05/20/18 10:01 Pulse Ox 94 L 05/20/18 07:00 - Labs Result Diagrams: 05/19/18 19:50 05/20/18 07:49 Labs: Laboratory Results - last 24 hr 05/19/18 05/19/18 05/19/18 19:50 19:50 19:50 WBC 6.1 RBC 3.68 L Hgb 11.5 Hct 35.2 MCV 95.6 MCH 31.1 H MCHC 32.5 L RDW 14.1 Plt Count 222 MPV 9.1 Neut % (Auto) 56.1 Lymph % (Auto) 32.4 [place] % (Auto) 9.8 Eos % (Auto) 1.0 Baso % (Auto) 0.7 Neut # (Auto) 3.4 Lymph # (Auto) 2.0 [place] # (Auto) 0.6 Eos # (Auto) 0.1 Baso # (Auto) 0.0 PT 11.3 INR 1.0 APTT 36 H Sodium 133 Potassium 5.4 H Chloride 99 Carbon Dioxide 26 Anion Gap 12 BUN 38 H Creatinine 1.4 H Est GFR ( Amer) 45 Est GFR (Non-Af Amer) 37 POC Glucose (mg/dL) Random Glucose 349 H D Hemoglobin A1c Calcium 8.9 Phosphorus 4.1 Magnesium 1.9 Total Bilirubin 0.3 AST 23 ALT 7 L D Alkaline Phosphatase 112 Total Creatine Kinase 67 CK-MB (Mass) 1.90 Troponin I < 0.0120 NT-Pro-B Natriuret Pep 278 Total Protein 7.8 Albumin 3.9 Globulin 3.8 Albumin/Globulin Ratio 1.0 Urine Color Urine Clarity Urine pH Ur Specific [place] Urine Protein Urine Glucose (UA) Urine Ketones Urine Blood Urine Nitrate Urine Bilirubin Urine Urobilinogen Ur Leukocyte Esterase Urine WBC (Auto) Urine RBC (Auto) Ur Squamous Epith Cells Urine Bacteria 05/19/18 05/20/18 05/20/18 22:01 05:55 07:49 WBC RBC Hgb Hct MCV MCH MCHC RDW Plt Count MPV Neut % (Auto) Lymph % (Auto) [place] % (Auto) Eos % (Auto) Baso % (Auto) Neut # (Auto) Lymph # (Auto) [place] # (Auto) Eos # (Auto) Baso # (Auto) PT INR APTT Sodium 134 Potassium 5.4 H Chloride 100 Carbon Dioxide 28 Anion Gap 11 BUN 37 H Creatinine 1.4 H Est GFR ( Amer) 45 Est GFR (Non-Af Amer) 37 POC Glucose (mg/dL) 174 H Random Glucose 285 H Hemoglobin A1c Calcium 8.3 L Phosphorus Magnesium Total Bilirubin AST ALT Alkaline Phosphatase Total Creatine Kinase CK-MB (Mass) Troponin I NT-Pro-B Natriuret Pep Total Protein Albumin Globulin Albumin/Globulin Ratio Urine Color Yellow Urine Clarity Hazy Urine pH 5.0 Ur Specific [place] 1.006 Urine Protein Negative Urine Glucose (UA) Normal Urine Ketones Negative Urine Blood Negative Urine Nitrate Negative Urine Bilirubin Negative Urine Urobilinogen Normal Ur Leukocyte Esterase Neg Urine WBC (Auto) 1 Urine RBC (Auto) < 1 Ur Squamous Epith Cells < 1 Urine Bacteria Rare 05/20/18 05/20/18 07:49 11:54 WBC RBC Hgb Hct MCV MCH MCHC RDW Plt Count MPV Neut % (Auto) Lymph % (Auto) [place] % (Auto) Eos % (Auto) Baso % (Auto) Neut # (Auto) Lymph # (Auto) [place] # (Auto) Eos # (Auto) Baso # (Auto) PT INR APTT Sodium Potassium Chloride Carbon Dioxide Anion Gap BUN Creatinine Est GFR ( Amer) Est GFR (Non-Af Amer) POC Glucose (mg/dL) 385 H Random Glucose Hemoglobin A1c 8.7 H Calcium Phosphorus Magnesium Total Bilirubin AST ALT Alkaline Phosphatase Total Creatine Kinase CK-MB (Mass) Troponin I NT-Pro-B Natriuret Pep Total Protein Albumin Globulin Albumin/Globulin Ratio Urine Color Urine Clarity Urine pH Ur Specific [place] Urine Protein Urine Glucose (UA) Urine Ketones Urine Blood Urine Nitrate Urine Bilirubin Urine Urobilinogen Ur Leukocyte Esterase Urine WBC (Auto) Urine RBC (Auto) Ur Squamous Epith Cells Urine Bacteria Assessment & Plan (1) COPD (chronic obstructive pulmonary disease) Status: Acute (2) Chronic kidney disease, stage III (moderate) Status: Acute (3) Cellulitis and abscess of left leg Status: Acute (4) Congestive heart failure Status: Acute - Assessment and Plan (Free Text) Plan: Agree with diuretics- IV lasix and po metolazone might need higher dose if renal function stable and edema stays same recheck for proteinuria serial chemistries
--- NOTE | 2018-05-20 15:05 | CP.PCM.CON ---
History of Present Illness - History of Present Illness History of Present Illness: Podiatry Consult Note for Dr. Bishop 72F [facility] COPD seen and evaluated at bedside for right leg wound with cellulitis. Patient is seen sleeping at time of visit and all history is attained from patient's . Per , patient had a previous ulceration in the same area several years ago that went on to heal. This new wound has been present for several weeks and has recently increased in redness and warmth. Patient was originally brought in to hospital for SOB. Per , no further pedal complaints at this time. No N/V/F/C/CP. Review of Systems - Review of Systems All systems: reviewed and no additional remarkable complaints except Review of Systems: as per HPI Past Patient History - Tetanus Immunizations Tetanus Immunization: Unknown - Past Medical History & Family History Past Medical History?: Yes Past Family History: Reviewed and not pertinent - Past Social History Smoking Status: Never Smoked Chewing Tobacco Use: No Cigar Use: No Alcohol: None Drugs: Denies Home Situation {Lives}: With Family - CARDIAC Hx Congestive Heart Failure: Yes Hx Hypertension: Yes - PULMONARY Hx Respiratory Disorders: No - NEUROLOGICAL Hx Neurological Disorder: No - HEENT Hx HEENT Problems: No - RENAL Hx Chronic Kidney Disease: Yes - ENDOCRINE/METABOLIC Hx Endocrine Disorders: Yes Hx Diabetes Mellitus Type 2: Yes - HEMATOLOGICAL/ONCOLOGICAL Hx Blood Disorders: No - INTEGUMENTARY Hx Dermatological Problems: Yes Hx Cellulitis: Yes - MUSCULOSKELETAL/RHEUMATOLOGICAL Hx Musculoskeletal Disorders: Yes Hx Osteoarthritis: Yes - GASTROINTESTINAL Hx Gastrointestinal Disorders: No - GENITOURINARY/GYNECOLOGICAL Hx Genitourinary Disorders: No - PSYCHIATRIC Hx Substance Use: No - SURGICAL HISTORY Hx Cholecystectomy: Yes - ANESTHESIA Hx Anesthesia: Yes Hx Anesthesia Reactions: No Hx Malignant Hyperthermia: No Meds Allergies/Adverse Reactions: Allergies Allergy/AdvReac Type Severity Reaction Status Date / Time No Known Allergies Allergy Verified 05/19/18 18:36 - Medications Medications: Current Medications Albuterol/Ipratropium (Duoneb 3 Mg/0.5 Mg (3 Ml) Ud) 3 ml INH RQ6 [facility] Last Admin: 05/20/18 14:38 Dose: 3 ml Ascorbic Acid (Vitamin C 500 Mg Tab) 500 mg PO DAILY [facility] Last Admin: 05/20/18 10:01 Dose: 500 mg Aspirin (Ecotrin) 81 mg PO DAILY [facility] Last Admin: 05/20/18 10:02 Dose: 81 mg Ferrous Sulfate (Feosol) 325 mg PO DAILY [facility] Last Admin: 05/20/18 10:01 Dose: 325 mg Fluticasone/Vilanterol (Breo Ellipta 100-25 Mcg Inh) 1 puff INH RQD [facility] Furosemide (Lasix) 40 mg IVP BID [facility] Last Admin: 05/20/18 10:01 Dose: 40 mg Heparin Sodium (Porcine) (Heparin) 5,000 units SC Q12 [facility] Last Admin: 05/20/18 10:02 Dose: 5,000 units Daptomycin 600 mg/ Sodium (Chloride) 100 mls @ 100 mls/hr IV Q24H [facility]; Protocol Stop: 05/25/18 16:01 Cefepime HCl (Maxipime Iv 1 Gm Premix) 1 gm in 50 mls @ 100 mls/hr IVPB Q24H [facility]; Protocol Insulin Aspart (Novolog) 0 unit SC ACHS [facility]; Protocol Last Admin: 05/20/18 12:52 Dose: 5 unit Insulin Detemir (Levemir) 13 unit SC AMHS [facility] Last Admin: 05/20/18 10:02 Dose: 13 unit Levothyroxine Sodium (Synthroid) 75 mcg PO DAILY@0630 [facility] Last Admin: 05/20/18 06:10 Dose: 75 mcg Losartan Potassium (Cozaar) 50 mg PO DAILY [facility] Last Admin: 05/20/18 10:01 Dose: 50 mg Metolazone (Zaroxolyn) 5 mg PO DAILY [facility] Metoprolol Succinate (Toprol Xl) 25 mg PO BID [facility] Last Admin: 05/20/18 10:02 Dose: Not Given Promethazine HCl/Codeine (Phenergan/Codeine Oral Syrup) 5 ml PO Q4 PRN PRN Reason: Cough Last Admin: 05/20/18 10:25 Dose: 5 ml Zinc Sulfate (Zinc Sulfate 220 Mg Cap) 50 mg PO DAILY [facility] Last Admin: 05/20/18 10:06 Dose: 50 mg Physical Exam - Constitutional Appears: Well, Non-toxic, No Acute Distress - Extremities Exam Additional comments: RLE focsued exam: Vasc: DP/PT pulses fully palpable 2/4 b/l. Skin temperature warm to warm from proximal to distal. CFT < 3 seconds to all digits b/l. Minimal edema noted to periwound area Neuro: Unable to assess at this time Derm: 2 cm x 3 cm eschar noted to anterior aspect of patients right leg with increased erythema to periwound area. No malodor, drainage or fluctuance appreciated MSK: Unable to assess ROM and MMT at this time. No gross deformities appreciated Results - Vital Signs Recent Vital Signs: Last Vital Signs Temp 97.8 F 05/20/18 07:00 Pulse 87 05/20/18 08:31 Resp 20 05/20/18 07:00 BP 106/62 05/20/18 10:01 Pulse Ox 94 L 05/20/18 07:00 - Labs Result Diagrams: 05/19/18 19:50 05/20/18 07:49 Labs: Laboratory Results - last 24 hr 05/19/18 05/19/18 05/19/18 19:50 19:50 19:50 WBC 6.1 RBC 3.68 L Hgb 11.5 Hct 35.2 MCV 95.6 MCH 31.1 H MCHC 32.5 L RDW 14.1 Plt Count 222 MPV 9.1 Neut % (Auto) 56.1 Lymph % (Auto) 32.4 [place] % (Auto) 9.8 Eos % (Auto) 1.0 Baso % (Auto) 0.7 Neut # (Auto) 3.4 Lymph # (Auto) 2.0 [place] # (Auto) 0.6 Eos # (Auto) 0.1 Baso # (Auto) 0.0 PT 11.3 INR 1.0 APTT 36 H Sodium 133 Potassium 5.4 H Chloride 99 Carbon Dioxide 26 Anion Gap 12 BUN 38 H Creatinine 1.4 H Est GFR ( Amer) 45 Est GFR (Non-Af Amer) 37 POC Glucose (mg/dL) Random Glucose 349 H D Hemoglobin A1c Calcium 8.9 Phosphorus 4.1 Magnesium 1.9 Total Bilirubin 0.3 AST 23 ALT 7 L D Alkaline Phosphatase 112 Total Creatine Kinase 67 CK-MB (Mass) 1.90 Troponin I < 0.0120 NT-Pro-B Natriuret Pep 278 Total Protein 7.8 Albumin 3.9 Globulin 3.8 Albumin/Globulin Ratio 1.0 Urine Color Urine Clarity Urine pH Ur Specific [place] Urine Protein Urine Glucose (UA) Urine Ketones Urine Blood Urine Nitrate Urine Bilirubin Urine Urobilinogen Ur Leukocyte Esterase Urine WBC (Auto) Urine RBC (Auto) Ur Squamous Epith Cells Urine Bacteria 05/19/18 05/20/18 05/20/18 22:01 05:55 07:49 WBC RBC Hgb Hct MCV MCH MCHC RDW Plt Count MPV Neut % (Auto) Lymph % (Auto) [place] % (Auto) Eos % (Auto) Baso % (Auto) Neut # (Auto) Lymph # (Auto) [place] # (Auto) Eos # (Auto) Baso # (Auto) PT INR APTT Sodium 134 Potassium 5.4 H Chloride 100 Carbon Dioxide 28 Anion Gap 11 BUN 37 H Creatinine 1.4 H Est GFR ( Amer) 45 Est GFR (Non-Af Amer) 37 POC Glucose (mg/dL) 174 H Random Glucose 285 H Hemoglobin A1c Calcium 8.3 L Phosphorus Magnesium Total Bilirubin AST ALT Alkaline Phosphatase Total Creatine Kinase CK-MB (Mass) Troponin I NT-Pro-B Natriuret Pep Total Protein Albumin Globulin Albumin/Globulin Ratio Urine Color Yellow Urine Clarity Hazy Urine pH 5.0 Ur Specific [place] 1.006 Urine Protein Negative Urine Glucose (UA) Normal Urine Ketones Negative Urine Blood Negative Urine Nitrate Negative Urine Bilirubin Negative Urine Urobilinogen Normal Ur Leukocyte Esterase Neg Urine WBC (Auto) 1 Urine RBC (Auto) < 1 Ur Squamous Epith Cells < 1 Urine Bacteria Rare 05/20/18 05/20/18 07:49 11:54 WBC RBC Hgb Hct MCV MCH MCHC RDW Plt Count MPV Neut % (Auto) Lymph % (Auto) [place] % (Auto) Eos % (Auto) Baso % (Auto) Neut # (Auto) Lymph # (Auto) [place] # (Auto) Eos # (Auto) Baso # (Auto) PT INR APTT Sodium Potassium Chloride Carbon Dioxide Anion Gap BUN Creatinine Est GFR ( Amer) Est GFR (Non-Af Amer) POC Glucose (mg/dL) 385 H Random Glucose Hemoglobin A1c 8.7 H Calcium Phosphorus Magnesium Total Bilirubin AST ALT Alkaline Phosphatase Total Creatine Kinase CK-MB (Mass) Troponin I NT-Pro-B Natriuret Pep Total Protein Albumin Globulin Albumin/Globulin Ratio Urine Color Urine Clarity Urine pH Ur Specific [place] Urine Protein Urine Glucose (UA) Urine Ketones Urine Blood Urine Nitrate Urine Bilirubin Urine Urobilinogen Ur Leukocyte Esterase Urine WBC (Auto) Urine RBC (Auto) Ur Squamous Epith Cells Urine Bacteria Assessment & Plan - Assessment and Plan (Free Text) Assessment: 72F seen for right anterior leg wound and cellulitis Plan: Patient seen and evaluated with Dr. Bishop Afebrile, absent leukocytosis Continue abx per ID Lotrisone, Siladene and heating pad ordered to be applied daily to wound area No plan for surgical intervention at this time Podiatry will continue to follow while patient in house - Date & Time Date: 05/20/18 Time: 15:12
[2018-05-20] MEDS ORDERED: Cefepime IV 1 gm in Dextrose 1 GM/50 ML BAG IVPB SCH (15:30)
[2018-05-20 15:33] LABS: SQUAMOUS EPITHIAL 1 /hpf (0-5); URINE BACTERIA RARE (<OCC); URINE BILIRUBIN NEGATIVE (NEGATIVE); URINE BLOOD 3+ (NEGATIVE); URINE CLARITY Hazy (Clear); URINE COLOR Yellow (YELLOW); URINE GLUCOSE (UA) NORMAL (Normal); URINE LEUKOCYTE ESTERASE 1+ Leu/uL (Negative); URINE PROTEIN NEGATIVE (NEGATIVE); URINE UROBILINOGEN NORMAL mg/dL (0.2-1.0)
[2018-05-20] MEDS ORDERED: DAPTOmycin 600 MG in Sodium Chloride 0.9% 100 ML IV SCH (17:00)
--- NOTE | 2018-05-20 19:26 | CP.PCM.CON ---
History of Present Illness - History of Present Illness History of Present Illness: INFECTIOUS DISEASE CONSULTATION OTTONIEL RANGEL MD, FACP 05/20/2018 5T 571-B CHART REVIEWED PT EXAMINED CASE DISCUSSED AN INFECTIOUS DISEASE CONSULTATION WAS REQUESTED 2ND QUESTIONS OF AN ABSCESS RIGHT POSTERIOR THIGH AND RIGHT LOWER LEG-SEE EMPIRIC AB CHOSEN ON NIGHT ONE, WITH eGFR OF 37. 71F pmhx significant for CAD, CHF- diastolic heart failure, HTN, IDDM type 2, CKD stage 3, hypothyroidism admitted to for new onset shortness of breath at rest. Surgery was consulted for thigh abscess, has cellulitis right thigh related to swelling. Patient states first noticed pain around the area 2 days ago. Denies drainage or blood/PUS from the area. Denies other abscesses in the past. Denies: fevers, chills, nausea, vomiting, diarrhea PMH: stated above, CKD stage 3, COPD, CHRONIC CHF, COMPLIANCE AN ISSUE, OBESITY, DEPRESSION PSH: open cholecystectomy, ALL: NKDA SocialHx: denies tobacco, etoh, recreational drug use FH: non-contributory, no CKD Review of Systems - Review of Systems Systems not reviewed;Unavailable: Past Patient History - Tetanus Immunizations Tetanus Immunization: Unknown - Past Medical History & Family History Past Medical History?: Yes Past Family History: Reviewed and not pertinent - Past Social History Smoking Status: Never Smoked Chewing Tobacco Use: No Cigar Use: No Alcohol: None Drugs: Denies Home Situation {Lives}: With Family - CARDIAC Hx Congestive Heart Failure: Yes Hx Hypertension: Yes - PULMONARY Hx Respiratory Disorders: No - NEUROLOGICAL Hx Neurological Disorder: No - HEENT Hx HEENT Problems: No - RENAL Hx Chronic Kidney Disease: Yes - ENDOCRINE/METABOLIC Hx Endocrine Disorders: Yes Hx Diabetes Mellitus Type 2: Yes - HEMATOLOGICAL/ONCOLOGICAL Hx Blood Disorders: No - INTEGUMENTARY Hx Dermatological Problems: Yes Hx Cellulitis: Yes, STASIS DERMATITIS - MUSCULOSKELETAL/RHEUMATOLOGICAL Hx Musculoskeletal Disorders: Yes Hx Osteoarthritis: Yes - GASTROINTESTINAL Hx Gastrointestinal Disorders: No - GENITOURINARY/GYNECOLOGICAL Hx Genitourinary Disorders: No - PSYCHIATRIC Hx Substance Use: No - SURGICAL HISTORY Hx Cholecystectomy: Yes - ANESTHESIA Hx Anesthesia: Yes Hx Anesthesia Reactions: No Hx Malignant Hyperthermia: No Meds Allergies/Adverse Reactions: Allergies Allergy/AdvReac Type Severity Reaction Status Date / Time No Known Allergies Allergy Verified 05/19/18 18:36 - Medications Medications: Current Medications Albuterol/Ipratropium (Duoneb 3 Mg/0.5 Mg (3 Ml) Ud) 3 ml INH RQ6 [facility] Last Admin: 05/20/18 08:30 Dose: 3 ml Ascorbic Acid (Vitamin C 500 Mg Tab) 500 mg PO DAILY [facility] Last Admin: 05/20/18 10:01 Dose: 500 mg Aspirin (Ecotrin) 81 mg PO DAILY [facility] Last Admin: 05/20/18 10:02 Dose: 81 mg Ferrous Sulfate (Feosol) 325 mg PO DAILY [facility] Last Admin: 05/20/18 10:01 Dose: 325 mg Fluticasone/Vilanterol (Breo Ellipta 100-25 Mcg Inh) 1 puff INH RQD [facility] Furosemide (Lasix) 40 mg IVP BID [facility] Last Admin: 05/20/18 10:01 Dose: 40 mg Heparin Sodium (Porcine) (Heparin) 5,000 units SC Q12 [facility] Last Admin: 05/20/18 10:02 Dose: 5,000 units Insulin Aspart (Novolog) 0 unit SC [facility]; Protocol Last Admin: 05/20/18 12:52 Dose: 5 unit Insulin Detemir (Levemir) 13 unit SC [facility] Last Admin: 05/20/18 10:02 Dose: 13 unit Levothyroxine Sodium (Synthroid) 75 mcg PO DAILY@0630 [facility] Last Admin: 05/20/18 06:10 Dose: 75 mcg Losartan Potassium (Cozaar) 50 mg PO DAILY [facility] Last Admin: 05/20/18 10:01 Dose: 50 mg Metolazone (Zaroxolyn) 5 mg PO MWF [facility] Last Admin: 05/20/18 10:00 Dose: 5 mg Metoprolol Succinate (Toprol Xl) 25 mg PO BID [facility] Last Admin: 05/20/18 10:02 Dose: Not Given Promethazine HCl/Codeine (Phenergan/Codeine Oral Syrup) 5 ml PO Q4 PRN PRN Reason: Cough Last Admin: 05/20/18 10:25 Dose: 5 ml Zinc Sulfate (Zinc Sulfate 220 Mg Cap) 50 mg PO DAILY [facility] Last Admin: 05/20/18 10:06 Dose: 50 mg Physical Exam - Constitutional Appears: No Acute Distress, Confused, Chronically Ill - Head Exam Head Exam: ATRAUMATIC, NORMAL INSPECTION - Eye Exam Eye Exam: EOMI, Normal appearance - Neck Exam Neck exam: Positive for: Normal Inspection. Negative for: Tenderness - Respiratory Exam Respiratory Exam: Rhonchi, Wheezes - Cardiovascular Exam Cardiovascular Exam: REGULAR RHYTHM, +S1 - GI/Abdominal Exam GI & Abdominal Exam: Distended, Soft. absent: Tenderness - Extremities Exam Extremities exam: Positive for: pedal edema, tenderness; ABRASION RIGHT POSTERIOR THIGH, AND LOWER ANKLE IRRITATION 2ND STASIS DERMATITIS - Neurological Exam Neurological exam: CN II-XII Intact - Skin Skin Exam: Dry, Erythema, Warm Results - Vital Signs Recent Vital Signs: Last Vital Signs Temp 97.8 F 05/20/18 07:00 Pulse 87 05/20/18 08:31 Resp 20 05/20/18 07:00 BP 106/62 05/20/18 10:01 Pulse Ox 94 L 05/20/18 07:00 - Labs Result Diagrams: 05/19/18 19:50 05/20/18 07:49 Labs: Laboratory Results - last 24 hr 05/19/18 05/19/18 05/19/18 19:50 19:50 19:50 WBC 6.1 RBC 3.68 L Hgb 11.5 Hct 35.2 MCV 95.6 MCH 31.1 H MCHC 32.5 L RDW 14.1 Plt Count 222 MPV 9.1 Neut % (Auto) 56.1 Lymph % (Auto) 32.4 [place] % (Auto) 9.8 Eos % (Auto) 1.0 Baso % (Auto) 0.7 Neut # (Auto) 3.4 Lymph # (Auto) 2.0 [place] # (Auto) 0.6 Eos # (Auto) 0.1 Baso # (Auto) 0.0 PT 11.3 INR 1.0 APTT 36 H Sodium 133 Potassium 5.4 H Chloride 99 Carbon Dioxide 26 Anion Gap 12 BUN 38 H Creatinine 1.4 H Est GFR ( Amer) 45 Est GFR (Non-Af Amer) 37 POC Glucose (mg/dL) Random Glucose 349 H D Hemoglobin A1c Calcium 8.9 Phosphorus 4.1 Magnesium 1.9 Total Bilirubin 0.3 AST 23 ALT 7 L D Alkaline Phosphatase 112 Total Creatine Kinase 67 CK-MB (Mass) 1.90 Troponin I < 0.0120 NT-Pro-B Natriuret Pep 278 Total Protein 7.8 Albumin 3.9 Globulin 3.8 Albumin/Globulin Ratio 1.0 Urine Color Urine Clarity Urine pH Ur Specific [place] Urine Protein Urine Glucose (UA) Urine Ketones Urine Blood Urine Nitrate Urine Bilirubin Urine Urobilinogen Ur Leukocyte Esterase Urine WBC (Auto) Urine RBC (Auto) Ur Squamous Epith Cells Urine Bacteria 05/19/18 05/20/18 05/20/18 22:01 05:55 07:49 WBC RBC Hgb Hct MCV MCH MCHC RDW Plt Count MPV Neut % (Auto) Lymph % (Auto) [place] % (Auto) Eos % (Auto) Baso % (Auto) Neut # (Auto) Lymph # (Auto) [place] # (Auto) Eos # (Auto) Baso # (Auto) PT INR APTT Sodium 134 Potassium 5.4 H Chloride 100 Carbon Dioxide 28 Anion Gap 11 BUN 37 H Creatinine 1.4 H Est GFR ( Amer) 45 Est GFR (Non-Af Amer) 37 POC Glucose (mg/dL) 174 H Random Glucose 285 H Hemoglobin A1c Calcium 8.3 L Phosphorus Magnesium Total Bilirubin AST ALT Alkaline Phosphatase Total Creatine Kinase CK-MB (Mass) Troponin I NT-Pro-B Natriuret Pep Total Protein Albumin Globulin Albumin/Globulin Ratio Urine Color Yellow Urine Clarity Hazy Urine pH 5.0 Ur Specific [place] 1.006 Urine Protein Negative Urine Glucose (UA) Normal Urine Ketones Negative Urine Blood Negative Urine Nitrate Negative Urine Bilirubin Negative Urine Urobilinogen Normal Ur Leukocyte Esterase Neg Urine WBC (Auto) 1 Urine RBC (Auto) < 1 Ur Squamous Epith Cells < 1 Urine Bacteria Rare 05/20/18 05/20/18 07:49 11:54 WBC RBC Hgb Hct MCV MCH MCHC RDW Plt Count MPV Neut % (Auto) Lymph % (Auto) [place] % (Auto) Eos % (Auto) Baso % (Auto) Neut # (Auto) Lymph # (Auto) [place] # (Auto) Eos # (Auto) Baso # (Auto) PT INR APTT Sodium Potassium Chloride Carbon Dioxide Anion Gap BUN Creatinine Est GFR ( Amer) Est GFR (Non-Af Amer) POC Glucose (mg/dL) 385 H Random Glucose Hemoglobin A1c 8.7 H Calcium Phosphorus Magnesium Total Bilirubin AST ALT Alkaline Phosphatase Total Creatine Kinase CK-MB (Mass) Troponin I NT-Pro-B Natriuret Pep Total Protein Albumin Globulin Albumin/Globulin Ratio Urine Color Urine Clarity Urine pH Ur Specific [place] Urine Protein Urine Glucose (UA) Urine Ketones Urine Blood Urine Nitrate Urine Bilirubin Urine Urobilinogen Ur Leukocyte Esterase Urine WBC (Auto) Urine RBC (Auto) Ur Squamous Epith Cells Urine Bacteria Assessment & Plan (1) COPD (chronic obstructive pulmonary disease) Status: Acute (2) Chronic kidney disease, stage III (moderate) Status: Acute (3) Cellulitis and abscess of left leg Status: Acute AND UNDER CONTROL WITH ELIMINATION OF PERIPHERAL EDEMA (4) Congestive heart failure Status: Acute ON CHRONIC - Assessment and Plan (Free Text) Plan: ID CASTILLO: INITIAL AB-VANCOMYCIN AND ROCEPHIN VS CUBICIN + CEFEPIME NOW WILL DESCALATE TO ANCEF 1GM IVPB Q 12HRS. C/S PENDING, BUT MAY REPRESENT SURFACE COLONIZATION. THANK YOU, PLEASE CALL ME FOR ANY SIGNIFICANT ID/MED ISSUES. OTTONIEL RANGEL MD, FACP Past Patient History - Tetanus Immunizations Tetanus Immunization: Unknown - Past Medical History & Family History Past Medical History?: Yes Past Family History: Reviewed and not pertinent - Past Social History Smoking Status: Never Smoked Chewing Tobacco Use: No Cigar Use: No Alcohol: None Drugs: Denies Home Situation {Lives}: With Family - CARDIAC Hx Congestive Heart Failure: Yes Hx Hypertension: Yes - PULMONARY Hx Respiratory Disorders: No - NEUROLOGICAL Hx Neurological Disorder: No - HEENT Hx HEENT Problems: No - RENAL Hx Chronic Kidney Disease: Yes - ENDOCRINE/METABOLIC Hx Diabetes Mellitus Type 2: Yes - HEMATOLOGICAL/ONCOLOGICAL Hx Blood Disorders: No - INTEGUMENTARY Hx Dermatological Problems: Yes Hx Cellulitis: Yes - MUSCULOSKELETAL/RHEUMATOLOGICAL Hx Musculoskeletal Disorders: Yes Hx Osteoarthritis: Yes - GASTROINTESTINAL Hx Gastrointestinal Disorders: No - GENITOURINARY/GYNECOLOGICAL Hx Genitourinary Disorders: No - PSYCHIATRIC Hx Substance Use: No - SURGICAL HISTORY Hx Cholecystectomy: Yes - ANESTHESIA Hx Anesthesia: Yes Hx Anesthesia Reactions: No Hx Malignant Hyperthermia: No Meds Allergies/Adverse Reactions: Allergies Allergy/AdvReac Type Severity Reaction Status Date / Time No Known Allergies Allergy Verified 05/19/18 18:36 - Medications Medications: Current Medications Albuterol/Ipratropium (Duoneb 3 Mg/0.5 Mg (3 Ml) Ud) 3 ml INH RQ6 [facility] Last Admin: 05/20/18 14:38 Dose: 3 ml Ascorbic Acid (Vitamin C 500 Mg Tab) 500 mg PO DAILY [facility] Last Admin: 05/20/18 10:01 Dose: 500 mg Aspirin (Ecotrin) 81 mg PO DAILY [facility] Last Admin: 05/20/18 10:02 Dose: 81 mg Betamethasone/Clotrimazole (Lotrisone) 0 gm TOP DAILY [facility] Ferrous Sulfate (Feosol) 325 mg PO DAILY [facility] Last Admin: 05/20/18 10:01 Dose: 325 mg Fluticasone/Vilanterol (Breo Ellipta 100-25 Mcg Inh) 1 puff INH RQD [facility] Furosemide (Lasix) 40 mg IVP BID [facility] Last Admin: 05/20/18 18:05 Dose: 40 mg Heparin Sodium (Porcine) (Heparin) 5,000 units SC Q12 [facility] Last Admin: 05/20/18 10:02 Dose: 5,000 units Daptomycin 600 mg/ Sodium (Chloride) 100 mls @ 100 mls/hr IV Q24H [facility]; Protocol Stop: 05/25/18 17:01 Last Admin: 05/20/18 18:05 Dose: 100 mls/hr Cefepime HCl (Maxipime Iv 1 Gm Premix) 1 gm in 50 mls @ 100 mls/hr IVPB Q24H [facility]; Protocol Last Admin: 05/20/18 16:56 Dose: 100 mls/hr Insulin Aspart (Novolog) 0 unit SC ACHS [facility]; Protocol Last Admin: 05/20/18 16:57 Dose: 2 unit Insulin Detemir (Levemir) 13 unit SC [facility] Last Admin: 05/20/18 10:02 Dose: 13 unit Levothyroxine Sodium (Synthroid) 75 mcg PO DAILY@0630 [facility] Last Admin: 05/20/18 06:10 Dose: 75 mcg Losartan Potassium (Cozaar) 50 mg PO DAILY [facility] Last Admin: 05/20/18 10:01 Dose: 50 mg Metolazone (Zaroxolyn) 5 mg PO DAILY [facility] Metoprolol Succinate (Toprol Xl) 25 mg PO BID [facility] Last Admin: 05/20/18 18:05 Dose: 25 mg Promethazine HCl/Codeine (Phenergan/Codeine Oral Syrup) 5 ml PO Q4 PRN PRN Reason: Cough Last Admin: 05/20/18 10:25 Dose: 5 ml Silver Sulfadiazine (Silvadene 1% 20 Gm) 0 ea TOP DAILY [facility] Zinc Sulfate (Zinc Sulfate 220 Mg Cap) 50 mg PO DAILY [facility] Last Admin: 05/20/18 10:06 Dose: 50 mg Results - Vital Signs Recent Vital Signs: Last Vital Signs Temp 98.1 F 05/20/18 15:00 Pulse 78 05/20/18 16:00 Resp 20 05/20/18 15:00 BP 115/66 05/20/18 18:05 Pulse Ox 100 05/20/18 15:00 - Labs Result Diagrams: 05/19/18 19:50 05/20/18 07:49 Labs: Laboratory Results - last 24 hr 05/19/18 05/19/18 05/19/18 19:50 19:50 19:50 WBC 6.1 RBC 3.68 L Hgb 11.5 Hct 35.2 MCV 95.6 MCH 31.1 H MCHC 32.5 L RDW 14.1 Plt Count 222 MPV 9.1 Neut % (Auto) 56.1 Lymph % (Auto) 32.4 [place] % (Auto) 9.8 Eos % (Auto) 1.0 Baso % (Auto) 0.7 Neut # (Auto) 3.4 Lymph # (Auto) 2.0 [place] # (Auto) 0.6 Eos # (Auto) 0.1 Baso # (Auto) 0.0 PT 11.3 INR 1.0 APTT 36 H Sodium 133 Potassium 5.4 H Chloride 99 Carbon Dioxide 26 Anion Gap 12 BUN 38 H Creatinine 1.4 H Est GFR ( Amer) 45 Est GFR (Non-Af Amer) 37 POC Glucose (mg/dL) Random Glucose 349 H D Hemoglobin A1c Calcium 8.9 Phosphorus 4.1 Magnesium 1.9 Total Bilirubin 0.3 AST 23 ALT 7 L D Alkaline Phosphatase 112 Total Creatine Kinase 67 CK-MB (Mass) 1.90 Troponin I < 0.0120 NT-Pro-B Natriuret Pep 278 Total Protein 7.8 Albumin 3.9 Globulin 3.8 Albumin/Globulin Ratio 1.0 Urine Color Urine Clarity Urine pH Ur Specific [place] Urine Protein Urine Glucose (UA) Urine Ketones Urine Blood Urine Nitrate Urine Bilirubin Urine Urobilinogen Ur Leukocyte Esterase Urine WBC (Auto) Urine RBC (Auto) Ur Squamous Epith Cells Urine Bacteria Hyaline Casts U Random Total Protein Ur Random Sodium 05/19/18 05/20/18 05/20/18 22:01 05:55 07:49 WBC RBC Hgb Hct MCV MCH MCHC RDW Plt Count MPV Neut % (Auto) Lymph % (Auto) [place] % (Auto) Eos % (Auto) Baso % (Auto) Neut # (Auto) Lymph # (Auto) [place] # (Auto) Eos # (Auto) Baso # (Auto) PT INR APTT Sodium 134 Potassium 5.4 H Chloride 100 Carbon Dioxide 28 Anion Gap 11 BUN 37 H Creatinine 1.4 H Est GFR ( Amer) 45 Est GFR (Non-Af Amer) 37 POC Glucose (mg/dL) 174 H Random Glucose 285 H Hemoglobin A1c Calcium 8.3 L Phosphorus Magnesium Total Bilirubin AST ALT Alkaline Phosphatase Total Creatine Kinase CK-MB (Mass) Troponin I NT-Pro-B Natriuret Pep Total Protein Albumin Globulin Albumin/Globulin Ratio Urine Color Yellow Urine Clarity Hazy Urine pH 5.0 Ur Specific [place] 1.006 Urine Protein Negative Urine Glucose (UA) Normal Urine Ketones Negative Urine Blood Negative Urine Nitrate Negative Urine Bilirubin Negative Urine Urobilinogen Normal Ur Leukocyte Esterase Neg Urine WBC (Auto) 1 Urine RBC (Auto) < 1 Ur Squamous Epith Cells < 1 Urine Bacteria Rare Hyaline Casts U Random Total Protein Ur Random Sodium 05/20/18 05/20/18 05/20/18 07:49 11:54 15:21 WBC RBC Hgb Hct MCV MCH MCHC RDW Plt Count MPV Neut % (Auto) Lymph % (Auto) [place] % (Auto) Eos % (Auto) Baso % (Auto) Neut # (Auto) Lymph # (Auto) [place] # (Auto) Eos # (Auto) Baso # (Auto) PT INR APTT Sodium Potassium Chloride Carbon Dioxide Anion Gap BUN Creatinine Est GFR ( Amer) Est GFR (Non-Af Amer) POC Glucose (mg/dL) 385 H Random Glucose Hemoglobin A1c 8.7 H Calcium Phosphorus Magnesium Total Bilirubin AST ALT Alkaline Phosphatase Total Creatine Kinase CK-MB (Mass) Troponin I NT-Pro-B Natriuret Pep Total Protein Albumin Globulin Albumin/Globulin Ratio Urine Color Yellow Urine Clarity Hazy Urine pH 5.0 Ur Specific [place] 1.008 Urine Protein Negative Urine Glucose (UA) Normal Urine Ketones Negative Urine Blood 3+ H Urine Nitrate Negative Urine Bilirubin Negative Urine Urobilinogen Normal Ur Leukocyte Esterase 1+ H Urine WBC (Auto) 15 H Urine RBC (Auto) 236 H Ur Squamous Epith Cells 1 Urine Bacteria Rare Hyaline Casts 6-10 H U Random Total Protein Ur Random Sodium 05/20/18 05/20/18 05/20/18 15:24 15:25 16:04 WBC RBC Hgb Hct MCV MCH MCHC RDW Plt Count MPV Neut % (Auto) Lymph % (Auto) [place] % (Auto) Eos % (Auto) Baso % (Auto) Neut # (Auto) Lymph # (Auto) [place] # (Auto) Eos # (Auto) Baso # (Auto) PT INR APTT Sodium Potassium Chloride Carbon Dioxide Anion Gap BUN Creatinine Est GFR ( Amer) Est GFR (Non-Af Amer) POC Glucose (mg/dL) 228 H Random Glucose Hemoglobin A1c Calcium Phosphorus Magnesium Total Bilirubin AST ALT Alkaline Phosphatase Total Creatine Kinase CK-MB (Mass) Troponin I NT-Pro-B Natriuret Pep Total Protein Albumin Globulin Albumin/Globulin Ratio Urine Color Urine Clarity Urine pH Ur Specific [place] Urine Protein Urine Glucose (UA) Urine Ketones Urine Blood Urine Nitrate Urine Bilirubin Urine Urobilinogen Ur Leukocyte Esterase Urine WBC (Auto) Urine RBC (Auto) Ur Squamous Epith Cells Urine Bacteria Hyaline Casts U Random Total Protein 17.0 H Ur Random Sodium 87
--- NOTE | 2018-05-20 20:42 | CP.PCM.CON ---
History of Present Illness - History of Present Illness History of Present Illness: HPI: 72 year old female with a PMH of DM, CHF, HTN, CKD, hypothyroid, and sleep apnea. Patient says she has SOB and is wheezing. She also admits to a nonproductive cough for 2 days. She denies fevers, chill, nausea, vomiting, diarrhea, sick contacts, and pain. Patient states she becomes short of breath when the weather changes. She states she was hospitalized last year for similar symptoms. PMH: DM, CHF, HTN, CKD, and sleep apnea PSH: , cholecystectomy Social: nonsmoker, nondrinker. . Lives with her . She has one daughter and 1 granddaughter. Patient has a pet parrot and carpets. Meds: insulin, zaroxolyn, lasix, ranex, micardis Allegies: NKDA Vitals: Temp. 97.8 F, P 87, RR 20, BP 106/62, Physical Exam: General: chronically ill and obese HEENT: normocephalic, atraumatic, no cervical lymphadenopathy Respiratory: wheezing in all lung areas. Cardio: regular rate and rhythm, s1 and s2 present Extremities: 3+ pitting edema, venous stasis dermatitis, and erythema on lower extremities. Possible cellulitis. She has an ulcer in the R posterior thigh, and L foot. A/P: 72 year old chronically ill patient with multiple co-morbidities admitted for SOB, wheezing, and lower extremity ulcers. 1. SOB likely secondary to CHF fluid overload -Duoneb 3 ml ONH RQ6 -Inhaled steroids -continue Lasix Past Patient History - Tetanus Immunizations Tetanus Immunization: Unknown - Past Medical History & Family History Past Medical History?: Yes Past Family History: Reviewed and not pertinent - Past Social History Smoking Status: Never Smoked Chewing Tobacco Use: No Cigar Use: No Alcohol: None Drugs: Denies Home Situation {Lives}: With Family - CARDIAC Hx Congestive Heart Failure: Yes Hx Hypertension: Yes - PULMONARY Hx Respiratory Disorders: No - NEUROLOGICAL Hx Neurological Disorder: No - HEENT Hx HEENT Problems: No - RENAL Hx Chronic Kidney Disease: Yes - ENDOCRINE/METABOLIC Hx Diabetes Mellitus Type 2: Yes - HEMATOLOGICAL/ONCOLOGICAL Hx Blood Disorders: No - INTEGUMENTARY Hx Dermatological Problems: Yes Hx Cellulitis: Yes - MUSCULOSKELETAL/RHEUMATOLOGICAL Hx Musculoskeletal Disorders: Yes Hx Osteoarthritis: Yes - GASTROINTESTINAL Hx Gastrointestinal Disorders: No - GENITOURINARY/GYNECOLOGICAL Hx Genitourinary Disorders: No - PSYCHIATRIC Hx Substance Use: No - SURGICAL HISTORY Hx Cholecystectomy: Yes - ANESTHESIA Hx Anesthesia: Yes Hx Anesthesia Reactions: No Hx Malignant Hyperthermia: No Meds Allergies/Adverse Reactions: Allergies Allergy/AdvReac Type Severity Reaction Status Date / Time No Known Allergies Allergy Verified 05/19/18 18:36 - Medications Medications: Current Medications Albuterol/Ipratropium (Duoneb 3 Mg/0.5 Mg (3 Ml) Ud) 3 ml INH RQ6 [facility] Last Admin: 05/20/18 20:19 Dose: 3 ml Ascorbic Acid (Vitamin C 500 Mg Tab) 500 mg PO DAILY [facility] Last Admin: 05/20/18 10:01 Dose: 500 mg Aspirin (Ecotrin) 81 mg PO DAILY [facility] Last Admin: 05/20/18 10:02 Dose: 81 mg Betamethasone/Clotrimazole (Lotrisone) 0 gm TOP DAILY [facility] Ferrous Sulfate (Feosol) 325 mg PO DAILY [facility] Last Admin: 05/20/18 10:01 Dose: 325 mg Fluticasone/Vilanterol (Breo Ellipta 100-25 Mcg Inh) 1 puff INH RQD [facility] Furosemide (Lasix) 40 mg IVP BID [facility] Last Admin: 05/20/18 18:05 Dose: 40 mg Heparin Sodium (Porcine) (Heparin) 5,000 units SC Q12 [facility] Last Admin: 05/20/18 10:02 Dose: 5,000 units Cefazolin Sodium 500 mg/ (Sodium Chloride) 50 mls @ 100 mls/hr IVPB Q8H [facility]; Protocol Last Admin: 05/20/18 20:33 Dose: 100 mls/hr Insulin Aspart (Novolog) 0 unit SC ACHS [facility]; Protocol Last Admin: 05/20/18 16:57 Dose: 2 unit Insulin Detemir (Levemir) 13 unit SC AMHS [facility] Last Admin: 05/20/18 10:02 Dose: 13 unit Levothyroxine Sodium (Synthroid) 75 mcg PO DAILY@0630 [facility] Last Admin: 05/20/18 06:10 Dose: 75 mcg Losartan Potassium (Cozaar) 50 mg PO DAILY [facility] Last Admin: 05/20/18 10:01 Dose: 50 mg Metolazone (Zaroxolyn) 5 mg PO DAILY [facility] Metoprolol Succinate (Toprol Xl) 25 mg PO BID [facility] Last Admin: 05/20/18 18:05 Dose: 25 mg Promethazine HCl/Codeine (Phenergan/Codeine Oral Syrup) 5 ml PO Q4 PRN PRN Reason: Cough Last Admin: 05/20/18 10:25 Dose: 5 ml Silver Sulfadiazine (Silvadene 1% 20 Gm) 0 ea TOP DAILY [facility] Zinc Sulfate (Zinc Sulfate 220 Mg Cap) 50 mg PO DAILY [facility] Last Admin: 05/20/18 10:06 Dose: 50 mg Results - Vital Signs Recent Vital Signs: Last Vital Signs Temp 98.1 F 05/20/18 15:00 Pulse 78 05/20/18 16:00 Resp 20 05/20/18 15:00 BP 115/66 05/20/18 18:05 Pulse Ox 100 05/20/18 15:00 - Labs Result Diagrams: 05/19/18 19:50 05/20/18 07:49 Labs: Laboratory Results - last 24 hr 05/19/18 05/20/18 05/20/18 22:01 05:55 07:49 Sodium 134 Potassium 5.4 H Chloride 100 Carbon Dioxide 28 Anion Gap 11 BUN 37 H Creatinine 1.4 H Est GFR ( Amer) 45 Est GFR (Non-Af Amer) 37 POC Glucose (mg/dL) 174 H Random Glucose 285 H Hemoglobin A1c Calcium 8.3 L Urine Color Yellow Urine Clarity Hazy Urine pH 5.0 Ur Specific [place] 1.006 Urine Protein Negative Urine Glucose (UA) Normal Urine Ketones Negative Urine Blood Negative Urine Nitrate Negative Urine Bilirubin Negative Urine Urobilinogen Normal Ur Leukocyte Esterase Neg Urine WBC (Auto) 1 Urine RBC (Auto) < 1 Ur Squamous Epith Cells < 1 Urine Bacteria Rare Hyaline Casts U Random Total Protein Ur Random Sodium 05/20/18 05/20/18 05/20/18 07:49 11:54 15:21 Sodium Potassium Chloride Carbon Dioxide Anion Gap BUN Creatinine Est GFR ( Amer) Est GFR (Non-Af Amer) POC Glucose (mg/dL) 385 H Random Glucose Hemoglobin A1c 8.7 H Calcium Urine Color Yellow Urine Clarity Hazy Urine pH 5.0 Ur Specific [place] 1.008 Urine Protein Negative Urine Glucose (UA) Normal Urine Ketones Negative Urine Blood 3+ H Urine Nitrate Negative Urine Bilirubin Negative Urine Urobilinogen Normal Ur Leukocyte Esterase 1+ H Urine WBC (Auto) 15 H Urine RBC (Auto) 236 H Ur Squamous Epith Cells 1 Urine Bacteria Rare Hyaline Casts 6-10 H U Random Total Protein Ur Random Sodium 05/20/18 05/20/18 05/20/18 15:24 15:25 16:04 Sodium Potassium Chloride Carbon Dioxide Anion Gap BUN Creatinine Est GFR ( Amer) Est GFR (Non-Af Amer) POC Glucose (mg/dL) 228 H Random Glucose Hemoglobin A1c Calcium Urine Color Urine Clarity Urine pH Ur Specific [place] Urine Protein Urine Glucose (UA) Urine Ketones Urine Blood Urine Nitrate Urine Bilirubin Urine Urobilinogen Ur Leukocyte Esterase Urine WBC (Auto) Urine RBC (Auto) Ur Squamous Epith Cells Urine Bacteria Hyaline Casts U Random Total Protein 17.0 H Ur Random Sodium 87
[2018-05-21] MEDS: Albuterol-Ipratrop 3 mg / 0.5 (3 ml) UD INH SCH ×4 (02:30→20:07)
[2018-05-21] MEDS: Levothyroxine 75 MCG TAB PO SCH (06:12)
[2018-05-21] MEDS: Promethazine/Cod 6.25mg-10mg/5ml Syr UD PO PRN ×3 (06:27→22:25)
[2018-05-21 07:20] LABS: BASO % 0.4 % (0.0-2.0); EOS # 0.1 K/uL (0.0-0.7); EOS % 2.4 % (0.0-4.0); HEMOGLOBIN 10.3 g/dL (11.0-16.0); LYMPH # 1.4 K/uL (1.0-4.3); LYMPH % 29.9 % (20.0-40.0); MEAN CELL VOLUME 95.8 fL (81.0-99.0); MEAN CORPUSCULAR HEMOGLOBIN 32.3 pg (27.0-31.0); MEAN CORPUSCULAR HGB CONC 33.7 g/dL (33.0-37.0); MEAN PLATELET VOLUME 8.9 fL (7.2-11.7); MONO # 0.4 K/uL (0.0-0.8); MONO % 8.4 % (0.0-10.0); NEUT # 2.7 K/uL (1.8-7.0); NEUT % 58.9 % (50.0-75.0); NRBC % 0.1 % (0.0-2.0); RBC 3.18 Mil/uL (3.80-5.20); WHITE BLOOD COUNT 4.6 K/uL (4.8-10.8)
[2018-05-21 07:43] LABS: ALBUMIN 3.5 g/dL (3.5-5.0); CALCIUM 8.3 mg/dl (8.6-10.4)
[2018-05-21] MEDS: Budesonide 0.5 mg/2 ml Inhal Susp UD INH SCH ×2 (07:55→20:07)
[2018-05-21] MEDS: (Novolog) Insulin Aspart, Recombinant 100 u/ml 10 ml vial SC SCH ×4 (08:39→22:24)
[2018-05-21] MEDS ORDERED: metOLazone 5 MG TAB PO SCH (10:00)
--- NOTE | 2018-05-21 10:08 | CP.PCM.PN ---
Subjective - Date & Time of Evaluation Date of Evaluation: 05/21/18 Time of Evaluation: 10:06 - Subjective Subjective: feels better on IV bAs for LE cellulitis creat decreased to 1.2 [id number] same edema, maybe sl less Objective - Vital Signs/Intake and Output Vital Signs (last 24 hours): Temp Pulse Resp BP Pulse Ox 98 F 95 H 20 141/59 L 99 05/21/18 08:00 05/21/18 08:00 05/21/18 08:00 05/21/18 08:00 05/21/18 08:00 Intake and Output: 05/21/18 05/21/18 06:59 18:59 Intake Total 240 Output Total 1600 Balance -1360 - Medications Medications: Current Medications Albuterol/Ipratropium (Duoneb 3 Mg/0.5 Mg (3 Ml) Ud) 3 ml INH RQ6 [facility] Last Admin: 05/21/18 07:55 Dose: 3 ml Ascorbic Acid (Vitamin C 500 Mg Tab) 500 mg PO DAILY [facility] Last Admin: 05/20/18 10:01 Dose: 500 mg Aspirin (Ecotrin) 81 mg PO DAILY [facility] Last Admin: 05/20/18 10:02 Dose: 81 mg Betamethasone/Clotrimazole (Lotrisone) 0 gm TOP DAILY [facility] Budesonide (Pulmicort Respules) 0.5 mg INH RQ12 [facility] Last Admin: 05/21/18 07:55 Dose: 0.5 mg Ferrous Sulfate (Feosol) 325 mg PO DAILY [facility] Last Admin: 05/20/18 10:01 Dose: 325 mg Furosemide (Lasix) 40 mg IVP BID [facility] Last Admin: 05/20/18 18:05 Dose: 40 mg Heparin Sodium (Porcine) (Heparin) 5,000 units SC Q12 [facility] Last Admin: 05/20/18 22:09 Dose: 5,000 units Cefazolin Sodium 500 mg/ (Sodium Chloride) 50 mls @ 100 mls/hr IVPB Q8H [facility]; Protocol Last Admin: 05/21/18 03:37 Dose: 100 mls/hr Insulin Aspart (Novolog) 0 unit SC ACHS [facility]; Protocol Last Admin: 05/21/18 08:39 Dose: Not Given Insulin Detemir (Levemir) 13 unit SC AMHS [facility] Last Admin: 05/20/18 22:08 Dose: 13 unit Levothyroxine Sodium (Synthroid) 75 mcg PO DAILY@0630 [facility] Last Admin: 05/21/18 06:12 Dose: 75 mcg Losartan Potassium (Cozaar) 50 mg PO DAILY [facility] Last Admin: 05/20/18 10:01 Dose: 50 mg Metolazone (Zaroxolyn) 5 mg PO DAILY [facility] Metoprolol Succinate (Toprol Xl) 25 mg PO BID [facility] Last Admin: 05/20/18 18:05 Dose: 25 mg Promethazine HCl/Codeine (Phenergan/Codeine Oral Syrup) 5 ml PO Q4 PRN PRN Reason: Cough Last Admin: 05/21/18 06:27 Dose: 5 ml Silver Sulfadiazine (Silvadene 1% 20 Gm) 0 ea TOP DAILY [facility] Zinc Sulfate (Zinc Sulfate 220 Mg Cap) 50 mg PO DAILY [facility] Last Admin: 05/20/18 10:06 Dose: 50 mg - Labs Labs: 05/21/18 07:10 05/21/18 07:10 PT 11.3 SECONDS (9.7-12.2) 05/19/18 19:50 INR 1.0 05/19/18 19:50 APTT 36 SECONDS (21-34) H 05/19/18 19:50 - Constitutional Appears: No Acute Distress, Chronically Ill - Head Exam Head Exam: ATRAUMATIC, NORMAL INSPECTION - Eye Exam Eye Exam: EOMI, Normal appearance - Neck Exam Neck Exam: Normal Inspection. absent: Tenderness - Respiratory Exam Respiratory Exam: Clear to Ausculation Bilateral, NORMAL BREATHING PATTERN - Cardiovascular Exam Cardiovascular Exam: REGULAR RHYTHM, +S1 - GI/Abdominal Exam GI & Abdominal Exam: Soft. absent: Tenderness - Extremities Exam Extremities Exam: Pedal Edema, Tenderness - Neurological Exam Neurological Exam: Awake, CN II-XII Intact - Skin Skin Exam: Rash, Warm Assessment and Plan (1) COPD (chronic obstructive pulmonary disease) Status: Acute (2) Chronic kidney disease, stage III (moderate) Status: Acute (3) Cellulitis and abscess of left leg Status: Acute (4) Congestive heart failure Status: Acute - Assessment and Plan (Free Text) Plan: same IV lasix, po metolazone monitor chemistries rx cellulitis
[2018-05-21] MEDS: Insulin Detemir 100 units/ml Vial (Levemir) SC SCH ×2 (10:27→22:25)
[2018-05-21] MEDS: Metoprolol Succinate 25 mg XL Tab PO SCH ×2 (10:29→17:50)
[2018-05-21] MEDS: Silver Sulfadiazine 1% Cream (20 gm) TOP SCH ×2 (10:58)
[2018-05-21] MEDS: Clotrimazole/Betamethasone Cream(15 gm) TOP SCH ×2 (10:58→10:59)
[2018-05-21] MEDS: metOLazone 5 MG TAB PO SCH (10:59)
--- NOTE | 2018-05-21 21:59 | CP.PCM.PN ---
Subjective - Date & Time of Evaluation Date of Evaluation: 05/21/18 Time of Evaluation: 17:00 - Subjective Subjective: INFECTIOUS DISEASE PROGRESS NOTES OTTONIEL RANGEL MD, FACP 05/21/2018 CHART REVIEWED EXAMIN NOTES CASE DISCUSSED feels better on IV antibiotics for LE cellulitis creat decreased to 1.2 same edema, maybe sl less C/S NEG SO FAR BLOOD SUGARS ARE DIFFICULT TO CONTROL MONITOR AND TREAT ACCORDINGLY ON ANCEF 500MG IV Q 8 HOURS Objective - Vital Signs/Intake and Output Vital Signs (last 24 hours): Temp Pulse Resp BP Pulse Ox 98 F 95 H 20 141/59 L 99 05/21/18 08:00 05/21/18 08:00 05/21/18 08:00 05/21/18 08:00 05/21/18 08:00 Intake and Output: 05/21/18 05/21/18 06:59 18:59 Intake Total 240 Output Total 1600 Balance -1360 - Medications Medications: Current Medications Albuterol/Ipratropium (Duoneb 3 Mg/0.5 Mg (3 Ml) Ud) 3 ml INH RQ6 [facility] Last Admin: 05/21/18 07:55 Dose: 3 ml Ascorbic Acid (Vitamin C 500 Mg Tab) 500 mg PO DAILY [facility] Last Admin: 05/20/18 10:01 Dose: 500 mg Aspirin (Ecotrin) 81 mg PO DAILY [facility] Last Admin: 05/20/18 10:02 Dose: 81 mg Betamethasone/Clotrimazole (Lotrisone) 0 gm TOP DAILY [facility] Budesonide (Pulmicort Respules) 0.5 mg INH RQ12 [facility] Last Admin: 05/21/18 07:55 Dose: 0.5 mg Ferrous Sulfate (Feosol) 325 mg PO DAILY [facility] Last Admin: 05/20/18 10:01 Dose: 325 mg Furosemide (Lasix) 40 mg IVP BID [facility] Last Admin: 05/20/18 18:05 Dose: 40 mg Heparin Sodium (Porcine) (Heparin) 5,000 units SC Q12 [facility] Last Admin: 05/20/18 22:09 Dose: 5,000 units Cefazolin Sodium 500 mg/ (Sodium Chloride) 50 mls @ 100 mls/hr IVPB Q8H [facility]; Protocol Last Admin: 05/21/18 03:37 Dose: 100 mls/hr Insulin Aspart (Novolog) 0 unit SC ACHS [facility]; Protocol Last Admin: 05/21/18 08:39 Dose: Not Given Insulin Detemir (Levemir) 13 unit SC AMHS [facility] Last Admin: 05/20/18 22:08 Dose: 13 unit Levothyroxine Sodium (Synthroid) 75 mcg PO DAILY@0630 [facility] Last Admin: 05/21/18 06:12 Dose: 75 mcg Losartan Potassium (Cozaar) 50 mg PO DAILY [facility] Last Admin: 05/20/18 10:01 Dose: 50 mg Metolazone (Zaroxolyn) 5 mg PO DAILY [facility] Metoprolol Succinate (Toprol Xl) 25 mg PO BID [facility] Last Admin: 05/20/18 18:05 Dose: 25 mg Promethazine HCl/Codeine (Phenergan/Codeine Oral Syrup) 5 ml PO Q4 PRN PRN Reason: Cough Last Admin: 05/21/18 06:27 Dose: 5 ml Silver Sulfadiazine (Silvadene 1% 20 Gm) 0 ea TOP DAILY [facility] Zinc Sulfate (Zinc Sulfate 220 Mg Cap) 50 mg PO DAILY [facility] Last Admin: 05/20/18 10:06 Dose: 50 mg - Labs Labs: 05/21/18 07:10 05/21/18 07:10 PT 11.3 SECONDS (9.7-12.2) 05/19/18 19:50 INR 1.0 05/19/18 19:50 APTT 36 SECONDS (21-34) H 05/19/18 19:50 - Constitutional Appears: No Acute Distress, Chronically Ill - Head Exam Head Exam: ATRAUMATIC, NORMAL INSPECTION - Eye Exam Eye Exam: EOMI, Normal appearance - Neck Exam Neck Exam: Normal Inspection. absent: Tenderness - Respiratory Exam Respiratory Exam: Clear to Ausculation Bilateral, NORMAL BREATHING PATTERN - Cardiovascular Exam Cardiovascular Exam: REGULAR RHYTHM, +S1 - GI/Abdominal Exam GI & Abdominal Exam: Soft. absent: Tenderness - Extremities Exam Extremities Exam: Pedal Edema, Tenderness - Neurological Exam Neurological Exam: Awake, CN II-XII Intact - Skin Skin Exam: Rash, Warm Assessment and Plan (1) COPD (chronic obstructive pulmonary disease) Status: Acute (2) Chronic kidney disease, stage III (moderate) Status: Acute (3) Cellulitis and abscess of left leg Status: Acute (4) Congestive heart failure Status: Acute Objective - Vital Signs/Intake and Output Vital Signs (last 24 hours): Temp Pulse Resp BP Pulse Ox 97.6 F 92 H 20 133/75 95 05/21/18 15:00 05/21/18 16:46 05/21/18 15:00 05/21/18 17:50 05/21/18 15:00 Intake and Output: 05/21/18 05/22/18 18:59 06:59 Output Total 400 Balance -400 - Medications Medications: Current Medications Albuterol/Ipratropium (Duoneb 3 Mg/0.5 Mg (3 Ml) Ud) 3 ml INH RQ6 [facility] Last Admin: 05/21/18 20:07 Dose: 3 ml Ascorbic Acid (Vitamin C 500 Mg Tab) 500 mg PO DAILY [facility] Last Admin: 05/21/18 10:29 Dose: 500 mg Aspirin (Ecotrin) 81 mg PO DAILY [facility] Last Admin: 05/21/18 10:29 Dose: 81 mg Betamethasone/Clotrimazole (Lotrisone) 0 gm TOP DAILY [facility] Last Admin: 05/21/18 10:58 Dose: Not Given Budesonide (Pulmicort Respules) 0.5 mg INH RQ12 [facility] Last Admin: 05/21/18 20:07 Dose: 0.5 mg Ferrous Sulfate (Feosol) 325 mg PO DAILY [facility] Last Admin: 05/21/18 10:28 Dose: 325 mg Furosemide (Lasix) 40 mg IVP BID [facility] Last Admin: 05/21/18 17:50 Dose: 40 mg Heparin Sodium (Porcine) (Heparin) 5,000 units SC Q12 [facility] Last Admin: 05/21/18 10:28 Dose: 5,000 units Cefazolin Sodium 500 mg/ (Sodium Chloride) 50 mls @ 100 mls/hr IVPB Q8H [facility]; Protocol Last Admin: 05/21/18 20:27 Dose: 100 mls/hr Insulin Aspart (Novolog) 0 unit SC ACHS [facility]; Protocol Last Admin: 05/21/18 17:49 Dose: 4 unit Insulin Detemir (Levemir) 13 unit SC AMHS [facility] Last Admin: 05/21/18 10:27 Dose: 13 unit Levothyroxine Sodium (Synthroid) 75 mcg PO DAILY@0630 [facility] Last Admin: 05/21/18 06:12 Dose: 75 mcg Losartan Potassium (Cozaar) 50 mg PO DAILY [facility] Last Admin: 05/21/18 10:29 Dose: 50 mg Metolazone (Zaroxolyn) 5 mg PO DAILY [facility] Last Admin: 05/21/18 10:59 Dose: 5 mg Metoprolol Succinate (Toprol Xl) 25 mg PO BID [facility] Last Admin: 05/21/18 17:50 Dose: 25 mg Promethazine HCl/Codeine (Phenergan/Codeine Oral Syrup) 5 ml PO Q4 PRN PRN Reason: Cough Last Admin: 05/21/18 17:49 Dose: 5 ml Silver Sulfadiazine (Silvadene 1% 20 Gm) 0 ea TOP DAILY [facility] Last Admin: 05/21/18 10:58 Dose: Not Given Zinc Sulfate (Zinc Sulfate 220 Mg Cap) 50 mg PO DAILY [facility] Last Admin: 05/21/18 10:49 Dose: Not Given - Labs Labs: 05/21/18 07:10 05/21/18 07:10 PT 11.3 SECONDS (9.7-12.2) 05/19/18 19:50 INR 1.0 05/19/18 19:50 APTT 36 SECONDS (21-34) H 05/19/18 19:50
[2018-05-21] MEDS ORDERED: (Novolog) Insulin Aspart, Recombinant 100 u/ml 10 ml vial SC ONE (22:06)
[2018-05-22] MEDS: Levothyroxine 75 MCG TAB PO SCH (06:17)
[2018-05-22] MEDS: Budesonide 0.5 mg/2 ml Inhal Susp UD INH SCH (07:54)
[2018-05-22] MEDS: Albuterol-Ipratrop 3 mg / 0.5 (3 ml) UD INH SCH ×3 (07:54→20:20)
[2018-05-22 09:07] LABS: BASO % 0.4 % (0.0-2.0); EOS # 0.1 K/uL (0.0-0.7); EOS % 2.3 % (0.0-4.0); HEMOGLOBIN 10.5 g/dL (11.0-16.0); LYMPH # 1.8 K/uL (1.0-4.3); LYMPH % 39.5 % (20.0-40.0); MEAN CELL VOLUME 96.2 fL (81.0-99.0); MEAN CORPUSCULAR HEMOGLOBIN 32.1 pg (27.0-31.0); MEAN CORPUSCULAR HGB CONC 33.4 g/dL (33.0-37.0); MEAN PLATELET VOLUME 8.9 fL (7.2-11.7); MONO # 0.3 K/uL (0.0-0.8); MONO % 7.6 % (0.0-10.0); NEUT # 2.3 K/uL (1.8-7.0); NEUT % 50.2 % (50.0-75.0); NRBC % 0.2 % (0.0-2.0); RBC 3.26 Mil/uL (3.80-5.20); RED CELL DISTRIBUTION WIDTH 13.9 % (11.5-14.5); WHITE BLOOD COUNT 4.6 K/uL (4.8-10.8)
[2018-05-22 09:23] LABS: ALBUMIN 3.6 g/dL (3.5-5.0); ALT/SGPT < 6 U/L (9-52); AST/SGOT 21 U/L (14-36); BLOOD UREA NITROGEN 28 mg/dL (7-17); CALCIUM 8.8 mg/dl (8.6-10.4); GFR NON-AFRICAN AMERICAN 55
[2018-05-22] MEDS: (Novolog) Insulin Aspart, Recombinant 100 u/ml 10 ml vial SC SCH ×4 (09:29→21:23)
[2018-05-22] MEDS: Metoprolol Succinate 25 mg XL Tab PO SCH ×2 (09:45→18:46)
[2018-05-22] MEDS: Insulin Detemir 100 units/ml Vial (Levemir) SC SCH ×2 (09:46→21:23)
[2018-05-22] MEDS: metOLazone 5 MG TAB PO SCH (09:46)
[2018-05-22] MEDS: Clotrimazole/Betamethasone Cream(15 gm) TOP SCH (09:47)
[2018-05-22] MEDS: Silver Sulfadiazine 1% Cream (20 gm) TOP SCH (09:48)
--- NOTE | 2018-05-22 11:34 | CP.PCM.PN ---
Subjective - Date & Time of Evaluation Date of Evaluation: 05/22/18 Time of Evaluation: 11:31 - Subjective Subjective: Podiatry Progress Note for Dr. Bishop 72F seen and evaluated at bedside for right anterior leg wound with cellulitis. Patient is AAO x 3 and NAD, resting comfortably in bed. Denies any acute overnight events or new pedal complaints. States that pain is well controlled at this time and that over all she is feeling much better. Denies any recent N/V/F/C/CP/SOB/D Objective - Vital Signs/Intake and Output Vital Signs (last 24 hours): Temp Pulse Resp BP Pulse Ox 98 F 83 20 170/77 H 99 05/22/18 07:00 05/22/18 07:00 05/22/18 07:00 05/22/18 09:52 05/22/18 07:00 Intake and Output: 05/22/18 05/22/18 06:59 18:59 Intake Total 165 Output Total 350 Balance -185 - Medications Medications: Current Medications Albuterol/Ipratropium (Duoneb 3 Mg/0.5 Mg (3 Ml) Ud) 3 ml INH RQ6 [facility] Last Admin: 05/22/18 07:54 Dose: 3 ml Ascorbic Acid (Vitamin C 500 Mg Tab) 500 mg PO DAILY [facility] Last Admin: 05/22/18 09:37 Dose: 500 mg Aspirin (Ecotrin) 81 mg PO DAILY [facility] Last Admin: 05/22/18 09:46 Dose: 81 mg Betamethasone/Clotrimazole (Lotrisone) 0 gm TOP DAILY [facility] Last Admin: 05/22/18 09:47 Dose: 1 applic Budesonide (Pulmicort Respules) 0.5 mg INH RQ12 [facility] Last Admin: 05/22/18 07:54 Dose: 0.5 mg Ferrous Sulfate (Feosol) 325 mg PO DAILY [facility] Last Admin: 05/22/18 09:37 Dose: 325 mg Furosemide (Lasix) 40 mg IVP BID [facility] Last Admin: 05/22/18 09:52 Dose: 40 mg Heparin Sodium (Porcine) (Heparin) 5,000 units SC Q12 [facility] Last Admin: 05/22/18 09:48 Dose: 5,000 units Cefazolin Sodium 500 mg/ (Sodium Chloride) 50 mls @ 100 mls/hr IVPB Q8H [facility]; Protocol Last Admin: 05/22/18 02:32 Dose: 100 mls/hr Insulin Aspart (Novolog) 0 unit SC ACHS [facility]; Protocol Last Admin: 05/22/18 09:29 Dose: Not Given Insulin Detemir (Levemir) 13 unit SC AMHS [facility] Last Admin: 05/22/18 09:46 Dose: 13 unit Levothyroxine Sodium (Synthroid) 75 mcg PO DAILY@0630 [facility] Last Admin: 05/22/18 06:17 Dose: 75 mcg Losartan Potassium (Cozaar) 50 mg PO DAILY [facility] Last Admin: 05/22/18 09:46 Dose: 50 mg Metolazone (Zaroxolyn) 5 mg PO DAILY [facility] Last Admin: 05/22/18 09:46 Dose: 5 mg Metoprolol Succinate (Toprol Xl) 25 mg PO BID [facility] Last Admin: 05/22/18 09:45 Dose: 25 mg Promethazine HCl/Codeine (Phenergan/Codeine Oral Syrup) 5 ml PO Q4 PRN PRN Reason: Cough Last Admin: 05/21/18 22:25 Dose: 5 ml Silver Sulfadiazine (Silvadene 1% 20 Gm) 0 ea TOP DAILY [facility] Last Admin: 05/22/18 09:48 Dose: 1 applic Zinc Sulfate (Zinc Sulfate 220 Mg Cap) 50 mg PO DAILY [facility] Last Admin: 05/22/18 09:47 Dose: Not Given - Labs Labs: 05/22/18 08:55 05/22/18 08:55 PT 11.3 SECONDS (9.7-12.2) 05/19/18 19:50 INR 1.0 05/19/18 19:50 APTT 36 SECONDS (21-34) H 05/19/18 19:50 - Constitutional Appears: Well, Non-toxic, No Acute Distress - Extremities Exam Additional comments: RLE focsued exam: Vasc: DP/PT pulses fully palpable 2/4 b/l. Skin temperature warm to warm from proximal to distal with slightly increased temperature to periwound area, improving. CFT < 3 seconds to all digits b/l. Minimal edema noted to periwound area Neuro: Epicritic and protective sensation grossly intact Derm: 2 cm x 3 cm eschar noted to anterior aspect of patients right leg with increased erythema to periwound area. No malodor, drainage or fluctuance appreciated MSK: ROM at all major joints and MMT of all major muscle groups noted to be WNL at this time. No gross deformities appreciated - Neurological Exam Neurological Exam: Alert, Awake, Oriented x3 - Psychiatric Exam Psychiatric exam: Normal Affect, Normal Mood Assessment and Plan - Assessment and Plan (Free Text) Assessment: 72F seen and evaluated at bedside for right anterior leg wound with cellulitis. Plan: Patient seen and evaluated Plan discussed with Dr. Bishop Afebrile, absent leukocytosis Continue IV abx per ID Lotrisone cream applied to wound site No plan for surgical intervention at this time Podiatry will continue to follow while patient in house
[2018-05-22] MEDS: Promethazine/Cod 6.25mg-10mg/5ml Syr UD PO PRN ×3 (11:52→21:24)
--- NOTE | 2018-05-22 13:32 | CP.PCM.PN ---
Subjective - Date & Time of Evaluation Date of Evaluation: 05/22/18 Time of Evaluation: 13:32 - Subjective Subjective: Pulmonary follow up, Covering Dr Scruggs The Patient was seen and examined at the bedside, Medical records reviewed, and management issues were discussed and formulated with the house staff. Events reviewed 72 year old female with a PMH of DM, CHF, HTN, CKD, hypothyroid, and sleep apnea. Patient says she has SOB and is wheezing. She also admits to a nonproductive cough for 2 days. She denies fevers, chill, nausea, vomiting, diarrhea, sick contacts, and pain. Patient states she becomes short of breath when the weather changes. Patient was admitted with fluid overload in the setting of congestive heart oneida wilverre Has been getting intravenous diuretics Patient is feeling better today Less shortness of breath and denies chest pain Afebrile PMH: DM, CHF, HTN, CKD, and sleep apnea PSH: , cholecystectomy Social: nonsmoker, nondrinker. . Lives with her . She has one daughter and 1 granddaughter. Patient has a pet parrot and carpets. Meds: insulin, zaroxolyn, lasix, ranex, micardis Allegies: NKDA Objective - Vital Signs/Intake and Output Vital Signs (last 24 hours): Temp Pulse Resp BP Pulse Ox 98 F 83 20 170/77 H 99 05/22/18 07:00 05/22/18 07:00 05/22/18 07:00 05/22/18 09:52 05/22/18 07:00 Intake and Output: 05/22/18 05/22/18 06:59 18:59 Intake Total 165 Output Total 350 Balance -185 - Medications Medications: Current Medications Albuterol/Ipratropium (Duoneb 3 Mg/0.5 Mg (3 Ml) Ud) 3 ml INH RQ6 [facility] Last Admin: 05/22/18 07:54 Dose: 3 ml Ascorbic Acid (Vitamin C 500 Mg Tab) 500 mg PO DAILY [facility] Last Admin: 05/22/18 09:37 Dose: 500 mg Aspirin (Ecotrin) 81 mg PO DAILY [facility] Last Admin: 05/22/18 09:46 Dose: 81 mg Betamethasone/Clotrimazole (Lotrisone) 0 gm TOP DAILY [facility] Last Admin: 05/22/18 09:47 Dose: 1 applic Budesonide (Pulmicort Respules) 0.5 mg INH RQ12 [facility] Last Admin: 05/22/18 07:54 Dose: 0.5 mg Ferrous Sulfate (Feosol) 325 mg PO DAILY [facility] Last Admin: 05/22/18 09:37 Dose: 325 mg Furosemide (Lasix) 40 mg IVP BID [facility] Last Admin: 05/22/18 09:52 Dose: 40 mg Heparin Sodium (Porcine) (Heparin) 5,000 units SC Q12 [facility] Last Admin: 05/22/18 09:48 Dose: 5,000 units Cefazolin Sodium 500 mg/ (Sodium Chloride) 50 mls @ 100 mls/hr IVPB Q8H [facility]; Protocol Last Admin: 05/22/18 11:52 Dose: 100 mls/hr Insulin Aspart (Novolog) 0 unit SC ACHS [facility]; Protocol Last Admin: 05/22/18 11:59 Dose: 3 unit Insulin Detemir (Levemir) 13 unit SC AMHS [facility] Last Admin: 05/22/18 09:46 Dose: 13 unit Levothyroxine Sodium (Synthroid) 75 mcg PO DAILY@0630 [facility] Last Admin: 05/22/18 06:17 Dose: 75 mcg Losartan Potassium (Cozaar) 50 mg PO DAILY [facility] Last Admin: 05/22/18 09:46 Dose: 50 mg Metolazone (Zaroxolyn) 5 mg PO DAILY [facility] Last Admin: 05/22/18 09:46 Dose: 5 mg Metoprolol Succinate (Toprol Xl) 25 mg PO BID [facility] Last Admin: 05/22/18 09:45 Dose: 25 mg Promethazine HCl/Codeine (Phenergan/Codeine Oral Syrup) 5 ml PO Q4 PRN PRN Reason: Cough Last Admin: 05/22/18 11:52 Dose: 5 ml Silver Sulfadiazine (Silvadene 1% 20 Gm) 0 ea TOP DAILY [facility] Last Admin: 05/22/18 09:48 Dose: 1 applic Zinc Sulfate (Zinc Sulfate 220 Mg Cap) 50 mg PO DAILY [facility] Last Admin: 05/22/18 09:47 Dose: Not Given - Labs Labs: 05/22/18 08:55 05/22/18 08:55 PT 11.3 SECONDS (9.7-12.2) 05/19/18 19:50 INR 1.0 05/19/18 19:50 APTT 36 SECONDS (21-34) H 05/19/18 19:50 - Constitutional Appears: Well, Non-toxic - Head Exam Head Exam: ATRAUMATIC, NORMAL INSPECTION - Eye Exam Eye Exam: EOMI, Normal appearance. absent: Conjunctival injection - Neck Exam Neck Exam: Full ROM, Normal Inspection. absent: Lymphadenopathy, Meningismus - Respiratory Exam Respiratory Exam: Prolonged Expiratory Phase, Wheezes. absent: Rales, Rhonchi - Cardiovascular Exam Cardiovascular Exam: REGULAR RHYTHM, RRR, +S2, +S4. absent: Bradycardia, Tachycardia, JVD - GI/Abdominal Exam GI & Abdominal Exam: Soft, Normal Bowel Sounds. absent: Tenderness - Extremities Exam Extremities Exam: absent: Calf Tenderness, Normal Inspection (venous stasis dermatitis, and erythema on lower extremities.) Assessment and Plan (1) CHF exacerbation Status: Acute (2) COPD (chronic obstructive pulmonary disease) Status: Acute (3) Cellulitis and abscess of left leg Status: Acute - Assessment and Plan (Free Text) Assessment: SOB likely secondary to CHF fluid overload - IV Diuresis - Strict I&Os - Duoneb 3 ml ONH RQ6 - Inhaled steroids
--- NOTE | 2018-05-22 19:34 | CARD ---
APPROVED REPORT Date of service: 05/19/2018 EKG Measurement Heart [id number] ID [id number] <Conclusion> Normal sinus rhythm Low voltage QRS Borderline ECG
[2018-05-23] MEDS: Levothyroxine 75 MCG TAB PO SCH (06:07)
[2018-05-23] MEDS: Albuterol-Ipratrop 3 mg / 0.5 (3 ml) UD INH SCH ×3 (07:38→20:34)
[2018-05-23] MEDS: Budesonide 0.5 mg/2 ml Inhal Susp UD INH SCH ×2 (07:38→20:34)
[2018-05-23] MEDS: (Novolog) Insulin Aspart, Recombinant 100 u/ml 10 ml vial SC SCH ×4 (08:41→21:28)
--- NOTE | 2018-05-23 10:11 | CP.PCM.PN ---
Subjective - Date & Time of Evaluation Date of Evaluation: 05/23/18 Time of Evaluation: 14:00 - Subjective Subjective: less edema,sob is better. Objective - Vital Signs/Intake and Output Vital Signs (last 24 hours): Temp Pulse Resp BP Pulse Ox 97.5 F L 90 20 174/80 H 98 05/23/18 07:15 05/23/18 07:15 05/23/18 07:15 05/23/18 07:15 05/23/18 07:15 Intake and Output: 05/23/18 05/23/18 06:59 18:59 Intake Total 560 Output Total 920 Balance -360 - Medications Medications: Current Medications Albuterol/Ipratropium (Duoneb 3 Mg/0.5 Mg (3 Ml) Ud) 3 ml INH RQ6 [facility] Last Admin: 05/23/18 07:38 Dose: 3 ml Ascorbic Acid (Vitamin C 500 Mg Tab) 500 mg PO DAILY [facility] Last Admin: 05/22/18 09:37 Dose: 500 mg Aspirin (Ecotrin) 81 mg PO DAILY [facility] Last Admin: 05/22/18 09:46 Dose: 81 mg Betamethasone/Clotrimazole (Lotrisone) 0 gm TOP DAILY [facility] Last Admin: 05/22/18 09:47 Dose: 1 applic Budesonide (Pulmicort Respules) 0.5 mg INH RQ12 [facility] Last Admin: 05/23/18 07:38 Dose: 0.5 mg Ferrous Sulfate (Feosol) 325 mg PO DAILY [facility] Last Admin: 05/22/18 09:37 Dose: 325 mg Furosemide (Lasix) 40 mg IVP BID [facility] Last Admin: 05/22/18 18:46 Dose: 40 mg Heparin Sodium (Porcine) (Heparin) 5,000 units SC Q12 [facility] Last Admin: 05/22/18 21:24 Dose: 5,000 units Cefazolin Sodium 500 mg/ (Sodium Chloride) 50 mls @ 100 mls/hr IVPB Q8H [facility]; Protocol Last Admin: 05/23/18 02:58 Dose: 100 mls/hr Insulin Aspart (Novolog) 0 unit SC ACHS [facility]; Protocol Last Admin: 05/23/18 08:41 Dose: 3 unit Insulin Detemir (Levemir) 13 unit SC AMHS [facility] Last Admin: 05/22/18 21:23 Dose: 13 unit Levothyroxine Sodium (Synthroid) 75 mcg PO DAILY@0630 [facility] Last Admin: 05/23/18 06:07 Dose: 75 mcg Losartan Potassium (Cozaar) 50 mg PO DAILY [facility] Last Admin: 05/22/18 09:46 Dose: 50 mg Metolazone (Zaroxolyn) 5 mg PO DAILY [facility] Last Admin: 05/22/18 09:46 Dose: 5 mg Metoprolol Succinate (Toprol Xl) 25 mg PO BID [facility] Last Admin: 05/22/18 18:46 Dose: 25 mg Promethazine HCl/Codeine (Phenergan/Codeine Oral Syrup) 5 ml PO Q4 PRN PRN Reason: Cough Last Admin: 05/22/18 21:24 Dose: 5 ml Silver Sulfadiazine (Silvadene 1% 20 Gm) 0 ea TOP DAILY [facility] Last Admin: 05/22/18 09:48 Dose: 1 applic Zinc Sulfate (Zinc Sulfate 220 Mg Cap) 50 mg PO DAILY [facility] Last Admin: 05/22/18 09:47 Dose: Not Given - Labs Labs: 05/22/18 08:55 05/22/18 08:55 PT 11.3 SECONDS (9.7-12.2) 05/19/18 19:50 INR 1.0 05/19/18 19:50 APTT 36 SECONDS (21-34) H 05/19/18 19:50 - Constitutional Appears: No Acute Distress, Chronically Ill - Head Exam Head Exam: NORMOCEPHALIC - Neck Exam Neck Exam: Normal Inspection - Respiratory Exam Respiratory Exam: Rales - Cardiovascular Exam Cardiovascular Exam: REGULAR RHYTHM, Murmur - GI/Abdominal Exam GI & Abdominal Exam: Soft - Extremities Exam Extremities Exam: Pedal Edema - Neurological Exam Neurological Exam: Alert, Oriented x3 Assessment and Plan - Assessment and Plan (Free Text) Plan: still pulmonary congestion.will obtain chest x ray & increase lasix.
[2018-05-23] MEDS: Metoprolol Succinate 25 mg XL Tab PO SCH ×2 (10:23→19:15)
[2018-05-23] MEDS: metOLazone 5 MG TAB PO SCH (10:25)
[2018-05-23] MEDS: Insulin Detemir 100 units/ml Vial (Levemir) SC SCH ×2 (10:26→21:28)
[2018-05-23] MEDS: Clotrimazole/Betamethasone Cream(15 gm) TOP SCH (10:27)
[2018-05-23] MEDS: Silver Sulfadiazine 1% Cream (20 gm) TOP SCH (10:27)
--- NOTE | 2018-05-23 11:39 | CP.PCM.PN ---
Subjective - Date & Time of Evaluation Date of Evaluation: 05/23/18 Time of Evaluation: 11:36 - Subjective Subjective: feels better last creat stable at 1.0 EP=[id number]/ 24 hrs lytes acceptable tolerating diuretics well LE sl less swollen wounds addressed by surgery Objective - Vital Signs/Intake and Output Vital Signs (last 24 hours): Temp Pulse Resp BP Pulse Ox 97.5 F L 90 20 151/76 H 98 05/23/18 07:15 05/23/18 07:15 05/23/18 07:15 05/23/18 10:25 05/23/18 07:15 Intake and Output: 05/23/18 05/23/18 06:59 18:59 Intake Total 560 Output Total 920 Balance -360 - Medications Medications: Current Medications Albuterol/Ipratropium (Duoneb 3 Mg/0.5 Mg (3 Ml) Ud) 3 ml INH RQ6 [facility] Last Admin: 05/23/18 07:38 Dose: 3 ml Ascorbic Acid (Vitamin C 500 Mg Tab) 500 mg PO DAILY [facility] Last Admin: 05/23/18 10:25 Dose: 500 mg Aspirin (Ecotrin) 81 mg PO DAILY [facility] Last Admin: 05/23/18 10:26 Dose: 81 mg Betamethasone/Clotrimazole (Lotrisone) 0 gm TOP DAILY [facility] Last Admin: 05/23/18 10:27 Dose: 1 applic Budesonide (Pulmicort Respules) 0.5 mg INH RQ12 [facility] Last Admin: 05/23/18 07:38 Dose: 0.5 mg Ferrous Sulfate (Feosol) 325 mg PO DAILY [facility] Last Admin: 05/23/18 10:25 Dose: 325 mg Furosemide (Lasix) 40 mg IVP BID [facility] Last Admin: 05/23/18 10:25 Dose: 40 mg Heparin Sodium (Porcine) (Heparin) 5,000 units SC Q12 [facility] Last Admin: 05/23/18 10:26 Dose: 5,000 units Cefazolin Sodium 500 mg/ (Sodium Chloride) 50 mls @ 100 mls/hr IVPB Q8H [facility]; Protocol Last Admin: 05/23/18 02:58 Dose: 100 mls/hr Insulin Aspart (Novolog) 0 unit SC ACHS [facility]; Protocol Last Admin: 05/23/18 08:41 Dose: 3 unit Insulin Detemir (Levemir) 13 unit SC AMHS [facility] Last Admin: 05/23/18 10:26 Dose: 13 unit Levothyroxine Sodium (Synthroid) 75 mcg PO DAILY@0630 [facility] Last Admin: 05/23/18 06:07 Dose: 75 mcg Losartan Potassium (Cozaar) 50 mg PO DAILY [facility] Last Admin: 05/23/18 10:25 Dose: 50 mg Metolazone (Zaroxolyn) 5 mg PO DAILY [facility] Last Admin: 05/23/18 10:25 Dose: 5 mg Metoprolol Succinate (Toprol Xl) 25 mg PO BID [facility] Last Admin: 05/23/18 10:23 Dose: 25 mg Promethazine HCl/Codeine (Phenergan/Codeine Oral Syrup) 5 ml PO Q4 PRN PRN Reason: Cough Last Admin: 05/22/18 21:24 Dose: 5 ml Silver Sulfadiazine (Silvadene 1% 20 Gm) 0 ea TOP DAILY [facility] Last Admin: 05/23/18 10:27 Dose: 1 applic Zinc Sulfate (Zinc Sulfate 220 Mg Cap) 50 mg PO DAILY [facility] Last Admin: 05/23/18 10:25 Dose: Not Given - Labs Labs: 05/22/18 08:55 05/22/18 08:55 PT 11.3 SECONDS (9.7-12.2) 05/19/18 19:50 INR 1.0 05/19/18 19:50 APTT 36 SECONDS (21-34) H 05/19/18 19:50 - Constitutional Appears: No Acute Distress, Chronically Ill - Head Exam Head Exam: ATRAUMATIC, NORMAL INSPECTION - Eye Exam Eye Exam: EOMI, Normal appearance - Neck Exam Neck Exam: Normal Inspection. absent: Tenderness - Respiratory Exam Respiratory Exam: Clear to Ausculation Bilateral, NORMAL BREATHING PATTERN - Cardiovascular Exam Cardiovascular Exam: REGULAR RHYTHM, +S1 - GI/Abdominal Exam GI & Abdominal Exam: Soft. absent: Tenderness - Extremities Exam Extremities Exam: Pedal Edema, Tenderness - Neurological Exam Neurological Exam: Awake, CN II-XII Intact - Skin Skin Exam: Dry, Warm Assessment and Plan (1) COPD (chronic obstructive pulmonary disease) Status: Acute (2) Chronic kidney disease, stage III (moderate) Status: Acute (3) Cellulitis and abscess of left leg Status: Acute (4) Congestive heart failure Status: Acute - Assessment and Plan (Free Text) Plan: follow up chemistries continue same diuretics for now
--- NOTE | 2018-05-23 12:14 | CP.PCM.PN ---
Subjective - Date & Time of Evaluation Date of Evaluation: 05/23/18 Time of Evaluation: 12:11 - Subjective Subjective: Pulm Progress Note for Dr. Scruggs's service S/E at bedside. Denies sob Laying flat comfortably Stated her dressing was changed in AM Objective - Vital Signs/Intake and Output Vital Signs (last 24 hours): Temp Pulse Resp BP Pulse Ox 97.5 F L 90 20 151/76 H 98 05/23/18 07:15 05/23/18 07:15 05/23/18 07:15 05/23/18 10:25 05/23/18 07:15 Intake and Output: 05/23/18 05/23/18 06:59 18:59 Intake Total 560 Output Total 920 Balance -360 - Medications Medications: Current Medications Albuterol/Ipratropium (Duoneb 3 Mg/0.5 Mg (3 Ml) Ud) 3 ml INH RQ6 [facility] Last Admin: 05/23/18 07:38 Dose: 3 ml Ascorbic Acid (Vitamin C 500 Mg Tab) 500 mg PO DAILY [facility] Last Admin: 05/23/18 10:25 Dose: 500 mg Aspirin (Ecotrin) 81 mg PO DAILY [facility] Last Admin: 05/23/18 10:26 Dose: 81 mg Betamethasone/Clotrimazole (Lotrisone) 0 gm TOP DAILY [facility] Last Admin: 05/23/18 10:27 Dose: 1 applic Budesonide (Pulmicort Respules) 0.5 mg INH RQ12 [facility] Last Admin: 05/23/18 07:38 Dose: 0.5 mg Ferrous Sulfate (Feosol) 325 mg PO DAILY [facility] Last Admin: 05/23/18 10:25 Dose: 325 mg Furosemide (Lasix) 80 mg IVP DAILY [facility] Furosemide (Lasix) 40 mg IVP DAILY@1800 [facility] Heparin Sodium (Porcine) (Heparin) 5,000 units SC Q12 [facility] Last Admin: 05/23/18 10:26 Dose: 5,000 units Cefazolin Sodium 500 mg/ (Sodium Chloride) 50 mls @ 100 mls/hr IVPB Q8H [facility]; Protocol Last Admin: 05/23/18 02:58 Dose: 100 mls/hr Insulin Aspart (Novolog) 0 unit SC ACHS [facility]; Protocol Last Admin: 05/23/18 08:41 Dose: 3 unit Insulin Detemir (Levemir) 13 unit SC AMHS [facility] Last Admin: 05/23/18 10:26 Dose: 13 unit Levothyroxine Sodium (Synthroid) 75 mcg PO DAILY@0630 [facility] Last Admin: 05/23/18 06:07 Dose: 75 mcg Losartan Potassium (Cozaar) 50 mg PO DAILY [facility] Last Admin: 05/23/18 10:25 Dose: 50 mg Metolazone (Zaroxolyn) 5 mg PO DAILY [facility] Last Admin: 05/23/18 10:25 Dose: 5 mg Metoprolol Succinate (Toprol Xl) 25 mg PO BID [facility] Last Admin: 05/23/18 10:23 Dose: 25 mg Promethazine HCl/Codeine (Phenergan/Codeine Oral Syrup) 5 ml PO Q4 PRN PRN Reason: Cough Last Admin: 05/22/18 21:24 Dose: 5 ml Silver Sulfadiazine (Silvadene 1% 20 Gm) 0 ea TOP DAILY [facility] Last Admin: 05/23/18 10:27 Dose: 1 applic Zinc Sulfate (Zinc Sulfate 220 Mg Cap) 50 mg PO DAILY [facility] Last Admin: 05/23/18 10:25 Dose: Not Given - Labs Labs: 05/22/18 08:55 05/22/18 08:55 PT 11.3 SECONDS (9.7-12.2) 05/19/18 19:50 INR 1.0 05/19/18 19:50 APTT 36 SECONDS (21-34) H 05/19/18 19:50 - Constitutional Appears: Non-toxic, No Acute Distress - Head Exam Head Exam: NORMAL INSPECTION, NORMOCEPHALIC - Eye Exam Eye Exam: EOMI, Normal appearance. absent: Nystagmus, Scleral icterus - ENT Exam ENT Exam: Mucous Membranes Moist - Respiratory Exam Respiratory Exam: Clear to Ausculation Bilateral, NORMAL BREATHING PATTERN. absent: Wheezes - Cardiovascular Exam Cardiovascular Exam: REGULAR RHYTHM, +S1, +S2 - GI/Abdominal Exam GI & Abdominal Exam: Soft, Normal Bowel Sounds. absent: Tenderness - Extremities Exam Additional comments: dressing on I&D site of right LE - Neurological Exam Neurological Exam: Awake, Oriented x3 - Psychiatric Exam Psychiatric exam: Normal Affect, Normal Mood - Skin Skin Exam: Dry, Intact, Normal Color Assessment and Plan - Assessment and Plan (Free Text) Assessment: 72 year old [place] female with a PMH of DM, CHF, HTN, CKD, hypothyroid, and sleep apnea. Admitted for sob and wheezing Plan: A: HFpEF Hx of COPD on charts but patient denies smoking history P: Duoneb q6h Pulmicort q12 IV cefazolin 500 q8h Lasix 40mg IV daily Metolazone 5mg po daily Further medical management as per ICU
[2018-05-23] MEDS: Promethazine/Cod 6.25mg-10mg/5ml Syr UD PO PRN (12:26)
--- NOTE | 2018-05-23 12:59 | CARD ---
APPROVED REPORT Date of service: 05/19/2018 EKG Measurement Heart [id number] <Conclusion> Normal sinus rhythm Low voltage QRS Borderline ECG
--- NOTE | 2018-05-23 14:20 | RAD ---
Date of service: 05/23/2018 HISTORY: Shortness of breath COMPARISON: 05/19/2018. TECHNIQUE: Chest PA and lateral views FINDINGS: LUNGS: No active pulmonary disease. PLEURA: No significant pleural effusion identified. No pneumothorax apparent. CARDIOVASCULAR: No aortic atherosclerotic calcification present. Normal cardiac size. No pulmonary vascular congestion. OSSEOUS STRUCTURES: No significant abnormalities. VISUALIZED UPPER ABDOMEN: Normal. OTHER FINDINGS: None. IMPRESSION: No active disease. No significant interval change compared to the prior examination(s).
--- NOTE | 2018-05-23 16:20 | CP.PCM.PN ---
Subjective - Date & Time of Evaluation Date of Evaluation: 05/23/18 Time of Evaluation: 16:04 - Subjective Subjective: Podiatry Progress Note for Dr. Bishop 72F seen and evaluated at bedside for right anterior leg wound with cellulitis. Patient is AAO x 3 and NAD, resting comfortably in bed. Denies any acute overnight events or new pedal complaints. States that she has no pain to her right leg at this time and that over all she is continuing to feel much better. Denies any recent N/V/F/C/CP/SOB/D Objective - Vital Signs/Intake and Output Vital Signs (last 24 hours): Temp Pulse Resp BP Pulse Ox 97.5 F L 90 20 151/76 H 98 05/23/18 07:15 05/23/18 07:15 05/23/18 07:15 05/23/18 12:14 05/23/18 07:15 Intake and Output: 05/23/18 05/23/18 06:59 18:59 Intake Total 560 350 Output Total 920 1000 Balance -360 -650 - Medications Medications: Current Medications Albuterol/Ipratropium (Duoneb 3 Mg/0.5 Mg (3 Ml) Ud) 3 ml INH RQ6 [facility] Last Admin: 05/23/18 13:41 Dose: 3 ml Ascorbic Acid (Vitamin C 500 Mg Tab) 500 mg PO DAILY [facility] Last Admin: 05/23/18 10:25 Dose: 500 mg Aspirin (Ecotrin) 81 mg PO DAILY [facility] Last Admin: 05/23/18 10:26 Dose: 81 mg Betamethasone/Clotrimazole (Lotrisone) 0 gm TOP DAILY [facility] Last Admin: 05/23/18 10:27 Dose: 1 applic Budesonide (Pulmicort Respules) 0.5 mg INH RQ12 [facility] Last Admin: 05/23/18 07:38 Dose: 0.5 mg Ferrous Sulfate (Feosol) 325 mg PO DAILY [facility] Last Admin: 05/23/18 10:25 Dose: 325 mg Furosemide (Lasix) 80 mg IVP DAILY [facility] Furosemide (Lasix) 40 mg IVP DAILY@1800 [facility] Heparin Sodium (Porcine) (Heparin) 5,000 units SC Q12 [facility] Last Admin: 05/23/18 10:26 Dose: 5,000 units Cefazolin Sodium 500 mg/ (Sodium Chloride) 50 mls @ 100 mls/hr IVPB Q8H [facility]; Protocol Last Admin: 05/23/18 12:13 Dose: 100 mls/hr Insulin Aspart (Novolog) 0 unit SC ACHS [facility]; Protocol Last Admin: 05/23/18 12:14 Dose: 5 unit Insulin Detemir (Levemir) 13 unit SC AMHS [facility] Last Admin: 05/23/18 10:26 Dose: 13 unit Levothyroxine Sodium (Synthroid) 75 mcg PO DAILY@0630 [facility] Last Admin: 05/23/18 06:07 Dose: 75 mcg Losartan Potassium (Cozaar) 50 mg PO DAILY [facility] Last Admin: 05/23/18 10:25 Dose: 50 mg Metolazone (Zaroxolyn) 5 mg PO DAILY [facility] Last Admin: 05/23/18 10:25 Dose: 5 mg Metoprolol Succinate (Toprol Xl) 25 mg PO BID [facility] Last Admin: 05/23/18 10:23 Dose: 25 mg Promethazine HCl/Codeine (Phenergan/Codeine Oral Syrup) 5 ml PO Q4 PRN PRN Reason: Cough Last Admin: 05/23/18 12:26 Dose: 5 ml Silver Sulfadiazine (Silvadene 1% 20 Gm) 0 ea TOP DAILY [facility] Last Admin: 05/23/18 10:27 Dose: 1 applic Zinc Sulfate (Zinc Sulfate 220 Mg Cap) 50 mg PO DAILY [facility] Last Admin: 05/23/18 10:25 Dose: Not Given - Labs Labs: 05/22/18 08:55 05/22/18 08:55 PT 11.3 SECONDS (9.7-12.2) 05/19/18 19:50 INR 1.0 05/19/18 19:50 APTT 36 SECONDS (21-34) H 05/19/18 19:50 - Constitutional Appears: Well, Non-toxic, No Acute Distress - Extremities Exam Additional comments: RLE focsued exam: Vasc: DP/PT pulses fully palpable 2/4 b/l. Skin temperature warm to warm from proximal to distal WNL, slightly increased temperature noted to periwound area improving since yesterday. CFT < 3 seconds to all digits b/l. Minimal edema not ed to periwound area Neuro: Epicritic and protective sensation grossly intact Derm: 2 cm x 3 cm eschar noted to anterior aspect of patients right leg with increased erythema to periwound area. No malodor, drainage or fluctuance appreciated MSK: ROM at all major joints and MMT of all major muscle groups noted to be WNL at this time. No gross deformities appreciated - Neurological Exam Neurological Exam: Alert, Awake, Oriented x3 - Psychiatric Exam Psychiatric exam: Normal Affect, Normal Mood Assessment and Plan - Assessment and Plan (Free Text) Assessment: 72F seen and evaluated at bedside for right anterior leg wound with cellulitis Plan: Patient seen and evaluated Plan discussed with Dr. Bishop Afebrile, absent leukocytosis Continue IV abx per ID Lotrisone cream applied to wound site Wound dressed with DSD No plan for surgical intervention at this time Podiatry will continue to follow while patient in house
--- NOTE | 2018-05-23 19:09 | CP.PCM.PN ---
Subjective - Date & Time of Evaluation Date of Evaluation: 05/23/18 Time of Evaluation: 19:07 - Subjective Subjective: INFECTIOUS DISEASE PROGRESS NOTES OTTONIEL RANGEL MD, FACP 5T 571 05/23/2018 CHART REVIEWED PT EXAMINED CASE DISCUSSED feels better last creat stable at 1.0 SUGAR IS A PROBLEM lytes acceptable tolerating diuretics well LE sl less swollen wounds addressed by surgery Objective - Vital Signs/Intake and Output Vital Signs (last 24 hours): Temp Pulse Resp BP Pulse Ox 97.5 F L 90 20 151/76 H 98 05/23/18 07:15 05/23/18 07:15 05/23/18 07:15 05/23/18 10:25 05/23/18 07:15 Intake and Output: 05/23/18 05/23/18 06:59 18:59 Intake Total 560 Output Total 920 Balance -360 - Medications Medications: Current Medications Albuterol/Ipratropium (Duoneb 3 Mg/0.5 Mg (3 Ml) Ud) 3 ml INH RQ6 [facility] Last Admin: 05/23/18 07:38 Dose: 3 ml Ascorbic Acid (Vitamin C 500 Mg Tab) 500 mg PO DAILY [facility] Last Admin: 05/23/18 10:25 Dose: 500 mg Aspirin (Ecotrin) 81 mg PO DAILY [facility] Last Admin: 05/23/18 10:26 Dose: 81 mg Betamethasone/Clotrimazole (Lotrisone) 0 gm TOP DAILY [facility] Last Admin: 05/23/18 10:27 Dose: 1 applic Budesonide (Pulmicort Respules) 0.5 mg INH RQ12 [facility] Last Admin: 05/23/18 07:38 Dose: 0.5 mg Ferrous Sulfate (Feosol) 325 mg PO DAILY [facility] Last Admin: 05/23/18 10:25 Dose: 325 mg Furosemide (Lasix) 40 mg IVP BID [facility] Last Admin: 05/23/18 10:25 Dose: 40 mg Heparin Sodium (Porcine) (Heparin) 5,000 units SC Q12 [facility] Last Admin: 05/23/18 10:26 Dose: 5,000 units Cefazolin Sodium 500 mg/ (Sodium Chloride) 50 mls @ 100 mls/hr IVPB Q8H [facility]; Protocol Last Admin: 05/23/18 02:58 Dose: 100 mls/hr Insulin Aspart (Novolog) 0 unit SC ACHS [facility]; Protocol Last Admin: 05/23/18 08:41 Dose: 3 unit Insulin Detemir (Levemir) 13 unit SC AMHS [facility] Last Admin: 05/23/18 10:26 Dose: 13 unit Levothyroxine Sodium (Synthroid) 75 mcg PO DAILY@0630 [facility] Last Admin: 05/23/18 06:07 Dose: 75 mcg Losartan Potassium (Cozaar) 50 mg PO DAILY [facility] Last Admin: 05/23/18 10:25 Dose: 50 mg Metolazone (Zaroxolyn) 5 mg PO DAILY [facility] Last Admin: 05/23/18 10:25 Dose: 5 mg Metoprolol Succinate (Toprol Xl) 25 mg PO BID [facility] Last Admin: 05/23/18 10:23 Dose: 25 mg Promethazine HCl/Codeine (Phenergan/Codeine Oral Syrup) 5 ml PO Q4 PRN PRN Reason: Cough Last Admin: 05/22/18 21:24 Dose: 5 ml Silver Sulfadiazine (Silvadene 1% 20 Gm) 0 ea TOP DAILY [facility] Last Admin: 05/23/18 10:27 Dose: 1 applic Zinc Sulfate (Zinc Sulfate 220 Mg Cap) 50 mg PO DAILY [facility] Last Admin: 05/23/18 10:25 Dose: Not Given - Labs Labs: 05/22/18 08:55 05/22/18 08:55 PT 11.3 SECONDS (9.7-12.2) 05/19/18 19:50 INR 1.0 05/19/18 19:50 APTT 36 SECONDS (21-34) H 05/19/18 19:50 - Constitutional Appears: No Acute Distress, Chronically Ill - Head Exam Head Exam: ATRAUMATIC, NORMAL INSPECTION - Eye Exam Eye Exam: EOMI, Normal appearance - Neck Exam Neck Exam: Normal Inspection. absent: Tenderness - Respiratory Exam Respiratory Exam: Clear to Ausculation Bilateral, NORMAL BREATHING PATTERN - Cardiovascular Exam Cardiovascular Exam: REGULAR RHYTHM, +S1 - GI/Abdominal Exam GI & Abdominal Exam: Soft. absent: Tenderness - Extremities Exam Extremities Exam: Pedal Edema, Tenderness - Neurological Exam Neurological Exam: Awake, CN II-XII Intact - Skin Skin Exam: Dry, Warm Assessment and Plan (1) COPD (chronic obstructive pulmonary disease) Status: Acute (2) Chronic kidney disease, stage III (moderate) Status: Acute (3) Cellulitis and abscess of left leg Status: Acute (4) Congestive heart failure Status: Acute Objective - Vital Signs/Intake and Output Vital Signs (last 24 hours): Temp Pulse Resp BP Pulse Ox 97.9 F 71 18 151/73 H 100 05/23/18 16:00 05/23/18 16:26 05/23/18 16:00 05/23/18 16:00 05/23/18 16:00 Intake and Output: 05/23/18 05/24/18 18:59 06:59 Intake Total 350 Output Total 1000 Balance -650 - Medications Medications: Current Medications Albuterol/Ipratropium (Duoneb 3 Mg/0.5 Mg (3 Ml) Ud) 3 ml INH RQ6 [facility] Last Admin: 05/23/18 13:41 Dose: 3 ml Ascorbic Acid (Vitamin C 500 Mg Tab) 500 mg PO DAILY [facility] Last Admin: 05/23/18 10:25 Dose: 500 mg Aspirin (Ecotrin) 81 mg PO DAILY [facility] Last Admin: 05/23/18 10:26 Dose: 81 mg Betamethasone/Clotrimazole (Lotrisone) 0 gm TOP DAILY [facility] Last Admin: 05/23/18 10:27 Dose: 1 applic Budesonide (Pulmicort Respules) 0.5 mg INH RQ12 [facility] Last Admin: 05/23/18 07:38 Dose: 0.5 mg Ferrous Sulfate (Feosol) 325 mg PO DAILY [facility] Last Admin: 05/23/18 10:25 Dose: 325 mg Furosemide (Lasix) 80 mg IVP DAILY [facility] Furosemide (Lasix) 40 mg IVP DAILY@1800 [facility] Heparin Sodium (Porcine) (Heparin) 5,000 units SC Q12 [facility] Last Admin: 05/23/18 10:26 Dose: 5,000 units Cefazolin Sodium 500 mg/ (Sodium Chloride) 50 mls @ 100 mls/hr IVPB Q8H [facility]; Protocol Last Admin: 05/23/18 12:13 Dose: 100 mls/hr Insulin Aspart (Novolog) 0 unit SC ACHS [facility]; Protocol Last Admin: 05/23/18 17:17 Dose: 3 unit Insulin Detemir (Levemir) 13 unit SC AMHS [facility] Last Admin: 05/23/18 10:26 Dose: 13 unit Levothyroxine Sodium (Synthroid) 75 mcg PO DAILY@0630 [facility] Last Admin: 05/23/18 06:07 Dose: 75 mcg Losartan Potassium (Cozaar) 50 mg PO DAILY [facility] Last Admin: 05/23/18 10:25 Dose: 50 mg Metolazone (Zaroxolyn) 5 mg PO DAILY [facility] Last Admin: 05/23/18 10:25 Dose: 5 mg Metoprolol Succinate (Toprol Xl) 25 mg PO BID [facility] Last Admin: 05/23/18 10:23 Dose: 25 mg Promethazine HCl/Codeine (Phenergan/Codeine Oral Syrup) 5 ml PO Q4 PRN PRN Reason: Cough Last Admin: 05/23/18 12:26 Dose: 5 ml Silver Sulfadiazine (Silvadene 1% 20 Gm) 0 ea TOP DAILY [facility] Last Admin: 05/23/18 10:27 Dose: 1 applic Zinc Sulfate (Zinc Sulfate 220 Mg Cap) 50 mg PO DAILY [facility] Last Admin: 05/23/18 10:25 Dose: Not Given - Labs Labs: 05/22/18 08:55 05/22/18 08:55 PT 11.3 SECONDS (9.7-12.2) 05/19/18 19:50 INR 1.0 05/19/18 19:50 APTT 36 SECONDS (21-34) H 05/19/18 19:50
[2018-05-23] MEDS ORDERED: MethylPREDNISolone 40 mg Vial IVP STA (20:00)
[2018-05-24] MEDS: Albuterol-Ipratrop 3 mg / 0.5 (3 ml) UD INH SCH ×4 (01:23→19:28)
[2018-05-24] MEDS ORDERED: (Novolog) Insulin Aspart, Recombinant 100 u/ml 10 ml vial SC ONE (02:23)
[2018-05-24] MEDS: Levothyroxine 75 MCG TAB PO SCH (06:02)
[2018-05-24] MEDS: (Novolog) Insulin Aspart, Recombinant 100 u/ml 10 ml vial SC SCH ×4 (08:09→22:00)
[2018-05-24] MEDS: Budesonide 0.5 mg/2 ml Inhal Susp UD INH SCH ×2 (08:24→19:28)
[2018-05-24 08:33] LABS: ALBUMIN 3.8 g/dL (3.5-5.0); AST/SGOT 18 U/L (14-36); BLOOD UREA NITROGEN 31 mg/dL (7-17); CALCIUM 9.1 mg/dl (8.6-10.4); GFR NON-AFRICAN AMERICAN > 60
[2018-05-24 08:35] LABS: ALT/SGPT < 6 U/L (9-52)
--- NOTE | 2018-05-24 09:13 | CP.PCM.PN ---
Subjective - Date & Time of Evaluation Date of Evaluation: 05/24/18 Time of Evaluation: 09:10 - Subjective Subjective: b mildly elevated afebrile creatinine down to .9 glucose elevated k 5.4 output 1770 comfortable in bed without oxygen intermittent non productive cough ROS no dizziness no chest pain no hemoptysis no abd pain,n,v,d monsivais knee pain rt foot pain Objective - Vital Signs/Intake and Output Vital Signs (last 24 hours): Temp Pulse Resp BP Pulse Ox 97.3 F L 83 20 171/74 H 98 05/24/18 08:07 05/24/18 08:07 05/24/18 08:07 05/24/18 08:07 05/24/18 08:07 Intake and Output: 05/24/18 05/24/18 06:59 18:59 Intake Total 350 Output Total 1370 Balance -1020 - Medications Medications: Current Medications Albuterol/Ipratropium (Duoneb 3 Mg/0.5 Mg (3 Ml) Ud) 3 ml INH RQ6 [facility] Last Admin: 05/24/18 08:24 Dose: 3 ml Ascorbic Acid (Vitamin C 500 Mg Tab) 500 mg PO DAILY [facility] Last Admin: 05/23/18 10:25 Dose: 500 mg Aspirin (Ecotrin) 81 mg PO DAILY [facility] Last Admin: 05/23/18 10:26 Dose: 81 mg Benzonatate (Tessalon Perles) 200 mg PO BID [facility] Last Admin: 05/23/18 20:14 Dose: 200 mg Betamethasone/Clotrimazole (Lotrisone) 0 gm TOP DAILY [facility] Last Admin: 05/23/18 10:27 Dose: 1 applic Budesonide (Pulmicort Respules) 0.5 mg INH RQ12 [facility] Last Admin: 05/24/18 08:24 Dose: 0.5 mg Ferrous Sulfate (Feosol) 325 mg PO DAILY [facility] Last Admin: 05/23/18 10:25 Dose: 325 mg Furosemide (Lasix) 80 mg IVP DAILY [facility] Furosemide (Lasix) 40 mg IVP DAILY@1800 [facility] Last Admin: 05/23/18 19:15 Dose: 40 mg Heparin Sodium (Porcine) (Heparin) 5,000 units SC Q12 [facility] Last Admin: 05/23/18 21:28 Dose: 5,000 units Cefazolin Sodium 500 mg/ (Sodium Chloride) 50 mls @ 100 mls/hr IVPB Q8H [facility]; Protocol Last Admin: 05/24/18 03:13 Dose: 100 mls/hr Insulin Aspart (Novolog) 0 unit SC ACHS [facility]; Protocol Last Admin: 05/24/18 08:09 Dose: 4 unit Insulin Detemir (Levemir) 13 unit SC AMHS [facility] Last Admin: 05/23/18 21:28 Dose: 13 unit Levothyroxine Sodium (Synthroid) 75 mcg PO DAILY@0630 [facility] Last Admin: 05/24/18 06:02 Dose: 75 mcg Losartan Potassium (Cozaar) 50 mg PO DAILY [facility] Last Admin: 05/23/18 10:25 Dose: 50 mg Methylprednisolone (Solu-Medrol) 40 mg IV Q12 [facility] Last Admin: 05/24/18 08:11 Dose: 40 mg Metolazone (Zaroxolyn) 5 mg PO DAILY [facility] Last Admin: 05/23/18 10:25 Dose: 5 mg Metoprolol Succinate (Toprol Xl) 25 mg PO BID [facility] Last Admin: 05/23/18 19:15 Dose: 25 mg Silver Sulfadiazine (Silvadene 1% 20 Gm) 0 ea TOP DAILY [facility] Last Admin: 05/23/18 10:27 Dose: 1 applic Zinc Sulfate (Zinc Sulfate 220 Mg Cap) 50 mg PO DAILY [facility] Last Admin: 05/23/18 10:25 Dose: Not Given - Labs Labs: 05/22/18 08:55 05/24/18 08:11 PT 11.3 SECONDS (9.7-12.2) 05/19/18 19:50 INR 1.0 05/19/18 19:50 APTT 36 SECONDS (21-34) H 05/19/18 19:50 - Constitutional Appears: No Acute Distress - Head Exam Head Exam: ATRAUMATIC, NORMOCEPHALIC Additional comments: obese - ENT Exam ENT Exam: Mucous Membranes Moist - Respiratory Exam Respiratory Exam: Clear to Ausculation Bilateral - Cardiovascular Exam Cardiovascular Exam: REGULAR RHYTHM - GI/Abdominal Exam GI & Abdominal Exam: Soft. absent: Distended, Tenderness Additional comments: obese - Extremities Exam Extremities Exam: Pedal Edema. absent: Calf Tenderness Additional comments: rt foot bandaged - Back Exam Back Exam: absent: CVA tenderness (L), CVA tenderness (R) Additional comments: no pre sacral edema - Skin Skin Exam: Dry, Warm Assessment and Plan (1) Acute renal insufficiency Status: Acute (2) CHF exacerbation Status: Acute (3) COPD (chronic obstructive pulmonary disease) Status: Acute (4) Congestive heart failure Status: Acute (5) Cellulitis of left lower leg Status: Resolved - Assessment and Plan (Free Text) Plan: renal function improved to add apresoline for elevated bp tighter glucose control should improve k steroids and diuretics will elevate bun
[2018-05-24] MEDS: Insulin Detemir 100 units/ml Vial (Levemir) SC SCH ×2 (10:12→22:03)
[2018-05-24] MEDS: Metoprolol Succinate 25 mg XL Tab PO SCH ×2 (10:14→17:27)
[2018-05-24] MEDS: metOLazone 5 MG TAB PO SCH (10:15)
[2018-05-24] MEDS: Silver Sulfadiazine 1% Cream (20 gm) TOP SCH (10:15)
[2018-05-24] MEDS: Clotrimazole/Betamethasone Cream(15 gm) TOP SCH (10:15)
--- NOTE | 2018-05-24 10:36 | CP.PCM.PN ---
<Jostin Guido - Last Filed: 05/24/18 14:24> Subjective - Date & Time of Evaluation Date of Evaluation: 05/24/18 Time of Evaluation: 10:36 - Subjective Subjective: Pulmonary progress note for Dr. Scruggs's service Patient was seen and examined at bedside. Patient was comfortable without oxygen. Patient complains of persistent cough. Patient denies SOB, fevers, chills, nausea, vomiting, chest pain, and diarrhea. Objective - Vital Signs/Intake and Output Vital Signs (last 24 hours): Temp Pulse Resp BP Pulse Ox 97.3 F L 83 20 171/74 H 98 05/24/18 08:07 05/24/18 08:07 05/24/18 08:07 05/24/18 10:16 05/24/18 08:07 Intake and Output: 05/24/18 05/24/18 06:59 18:59 Intake Total 350 Output Total 1370 Balance -1020 - Medications Medications: Current Medications Albuterol/Ipratropium (Duoneb 3 Mg/0.5 Mg (3 Ml) Ud) 3 ml INH RQ6 [facility] Last Admin: 05/24/18 08:24 Dose: 3 ml Ascorbic Acid (Vitamin C 500 Mg Tab) 500 mg PO DAILY [facility] Last Admin: 05/24/18 10:14 Dose: 500 mg Aspirin (Ecotrin) 81 mg PO DAILY [facility] Last Admin: 05/24/18 10:15 Dose: 81 mg Benzonatate (Tessalon Perles) 200 mg PO BID [facility] Last Admin: 05/24/18 10:14 Dose: 200 mg Betamethasone/Clotrimazole (Lotrisone) 0 gm TOP DAILY [facility] Last Admin: 05/24/18 10:15 Dose: 1 applic Budesonide (Pulmicort Respules) 0.5 mg INH RQ12 [facility] Last Admin: 05/24/18 08:24 Dose: 0.5 mg Ferrous Sulfate (Feosol) 325 mg PO DAILY [facility] Last Admin: 05/24/18 10:14 Dose: 325 mg Furosemide (Lasix) 80 mg IVP DAILY [facility] Last Admin: 05/24/18 10:16 Dose: 80 mg Furosemide (Lasix) 40 mg IVP DAILY@1800 [facility] Last Admin: 05/23/18 19:15 Dose: 40 mg Heparin Sodium (Porcine) (Heparin) 5,000 units SC Q12 [facility] Last Admin: 05/24/18 10:16 Dose: 5,000 units Hydralazine HCl (Apresoline) 50 mg PO BID [facility] Last Admin: 05/24/18 10:15 Dose: 50 mg Cefazolin Sodium 500 mg/ (Sodium Chloride) 50 mls @ 100 mls/hr IVPB Q8H [facility]; Protocol Last Admin: 05/24/18 03:13 Dose: 100 mls/hr Insulin Aspart (Novolog) 0 unit SC ACHS [facility]; Protocol Last Admin: 05/24/18 08:09 Dose: 4 unit Insulin Detemir (Levemir) 13 unit SC AMHS [facility] Last Admin: 05/24/18 10:12 Dose: 13 unit Levothyroxine Sodium (Synthroid) 75 mcg PO DAILY@0630 [facility] Last Admin: 05/24/18 06:02 Dose: 75 mcg Losartan Potassium (Cozaar) 50 mg PO DAILY [facility] Last Admin: 05/24/18 10:14 Dose: 50 mg Methylprednisolone (Solu-Medrol) 40 mg IV Q12 [facility] Last Admin: 05/24/18 08:11 Dose: 40 mg Metolazone (Zaroxolyn) 5 mg PO DAILY [facility] Last Admin: 05/24/18 10:15 Dose: 5 mg Metoprolol Succinate (Toprol Xl) 25 mg PO BID [facility] Last Admin: 05/24/18 10:14 Dose: 25 mg Silver Sulfadiazine (Silvadene 1% 20 Gm) 0 ea TOP DAILY [facility] Last Admin: 05/24/18 10:15 Dose: 1 applic Zinc Sulfate (Zinc Sulfate 220 Mg Cap) 50 mg PO DAILY [facility] Last Admin: 05/24/18 10:13 Dose: Not Given - Labs Labs: 05/22/18 08:55 05/24/18 08:11 PT 11.3 SECONDS (9.7-12.2) 05/19/18 19:50 INR 1.0 05/19/18 19:50 APTT 36 SECONDS (21-34) H 05/19/18 19:50 - Constitutional Appears: Non-toxic, No Acute Distress, Chronically Ill - Head Exam Head Exam: ATRAUMATIC, NORMOCEPHALIC - Eye Exam Eye Exam: EOMI Pupil Exam: PERRL - ENT Exam ENT Exam: Mucous Membranes Moist, Normal Exam - Neck Exam Neck Exam: Normal Inspection - Respiratory Exam Respiratory Exam: Decreased Breath Sounds, Wheezes, NORMAL BREATHING PATTERN. absent: Accessory Muscle Use - Cardiovascular Exam Cardiovascular Exam: REGULAR RHYTHM, +S1, +S2 - GI/Abdominal Exam GI & Abdominal Exam: Soft, Normal Bowel Sounds. absent: Tenderness - Extremities Exam Additional comments: Patient states her lower leg cellulitis is improving. - Neurological Exam Neurological Exam: Awake, Oriented x3 - Psychiatric Exam Psychiatric exam: Normal Affect, Normal Mood - Skin Skin Exam: Intact, Warm Assessment and Plan - Assessment and Plan (Free Text) Assessment: 72 year old [place] female with a PMH of DM type 1, CHF, HTN, CKD, hypothyriod, and sleep apnea. Pulmonary was consulted for SOB. Plan: A: HFpEF Hx of COPD on charts but patient denies smoking history Uncontrolled Blood sugars Hyperkalemia P: Duoneb q6h Pulmicort q12 IV steroids IV cefazolin 500 q8h [facility] 40mg IV daily Metolazone 5mg po daily Increase insulin requirements as patient is on steroids Recommend kayexlate (breathing treatments should help as well and insulin) for decreasing potassium, Daily CMPs recommended Further medical management as per primary <Maurilio Scruggs S - Last Filed: 05/24/18 17:37> Objective - Vital Signs/Intake and Output Vital Signs (last 24 hours): Temp Pulse Resp BP Pulse Ox 97.6 F 90 20 135/56 L 95 05/24/18 15:00 05/24/18 15:00 05/24/18 15:00 05/24/18 17:23 05/24/18 15:00 Intake and Output: 05/24/18 05/24/18 06:59 18:59 Intake Total 350 Output Total 1370 Balance -1020 - Medications Medications: Current Medications Albuterol/Ipratropium (Duoneb 3 Mg/0.5 Mg (3 Ml) Ud) 3 ml INH RQ6 [facility] Last Admin: 05/24/18 13:25 Dose: 3 ml Ascorbic Acid (Vitamin C 500 Mg Tab) 500 mg PO DAILY [facility] Last Admin: 05/24/18 10:14 Dose: 500 mg Aspirin (Ecotrin) 81 mg PO DAILY [facility] Last Admin: 05/24/18 10:15 Dose: 81 mg Benzonatate (Tessalon Perles) 200 mg PO BID [facility] Last Admin: 05/24/18 17:27 Dose: 200 mg Betamethasone/Clotrimazole (Lotrisone) 0 gm TOP DAILY [facility] Last Admin: 05/24/18 10:15 Dose: 1 applic Budesonide (Pulmicort Respules) 0.5 mg INH RQ12 [facility] Last Admin: 05/24/18 08:24 Dose: 0.5 mg Ferrous Sulfate (Feosol) 325 mg PO DAILY [facility] Last Admin: 05/24/18 10:14 Dose: 325 mg Furosemide (Lasix) 80 mg IVP DAILY [facility] Last Admin: 05/24/18 10:16 Dose: 80 mg Furosemide (Lasix) 40 mg IVP DAILY@1800 [facility] Last Admin: 05/24/18 17:23 Dose: 40 mg Heparin Sodium (Porcine) (Heparin) 5,000 units SC Q12 [facility] Last Admin: 05/24/18 10:16 Dose: 5,000 units Hydralazine HCl (Apresoline) 50 mg PO BID [facility] Last Admin: 05/24/18 17:27 Dose: 50 mg Cefazolin Sodium 500 mg/ (Sodium Chloride) 50 mls @ 100 mls/hr IVPB Q8H [facility]; Protocol Last Admin: 05/24/18 12:48 Dose: 100 mls/hr Insulin Aspart (Novolog) 0 unit SC ACHS [facility]; Protocol Last Admin: 05/24/18 16:43 Dose: 6 unit Insulin Detemir (Levemir) 20 unit SC AMHS [facility] Levothyroxine Sodium (Synthroid) 75 mcg PO DAILY@0630 [facility] Last Admin: 05/24/18 06:02 Dose: 75 mcg Losartan Potassium (Cozaar) 50 mg PO DAILY [facility] Last Admin: 05/24/18 10:14 Dose: 50 mg Methylprednisolone (Solu-Medrol) 40 mg IV Q12 [facility] Last Admin: 05/24/18 11:00 Dose: 40 mg Metolazone (Zaroxolyn) 5 mg PO DAILY [facility] Last Admin: 05/24/18 10:15 Dose: 5 mg Metoprolol Succinate (Toprol Xl) 25 mg PO BID [facility] Last Admin: 05/24/18 17:27 Dose: 25 mg Silver Sulfadiazine (Silvadene 1% 20 Gm) 0 ea TOP DAILY [facility] Last Admin: 05/24/18 10:15 Dose: 1 applic Zinc Sulfate (Zinc Sulfate 220 Mg Cap) 50 mg PO DAILY [facility] Last Admin: 05/24/18 10:13 Dose: Not Given - Labs Labs: 05/22/18 08:55 05/24/18 08:11 PT 11.3 SECONDS (9.7-12.2) 05/19/18 19:50 INR 1.0 05/19/18 19:50 APTT 36 SECONDS (21-34) H 05/19/18 19:50 Attending/Attestation - Attestation I have personally seen and examined this patient.: Yes I have fully participated in the care of the patient.: Yes I have reviewed all pertinent clinical information, including history, physical exam and plan: Yes Notes (Text): 05/24/18 17:37 Patient seen and examined. Patient states cough is improving We will start tapering steroids from tomorrow Continue nebulizer treatment and antitussive
[2018-05-24] MEDS ORDERED: Insulin Detemir 100 units/ml Vial (Levemir) SC SCH (13:10)
--- NOTE | 2018-05-24 13:53 | CP.PCM.PN ---
Subjective - Date & Time of Evaluation Date of Evaluation: 05/24/18 Time of Evaluation: 13:50 - Subjective Subjective: Podiatry Progress Note for Dr. Bishop 72F seen and evaluated at bedside for right anterior leg wound with cellulitis. Patient is AAO x 3 and NAD, resting comfortably in bed. Denies any acute overnight events or new pedal complaints. States that she has no pain at this time. Denies any recent N/V/F/C/CP/SOB/D Objective - Vital Signs/Intake and Output Vital Signs (last 24 hours): Temp Pulse Resp BP Pulse Ox 97.3 F L 83 20 171/74 H 98 05/24/18 08:07 05/24/18 08:07 05/24/18 08:07 05/24/18 10:16 05/24/18 08:07 Intake and Output: 05/24/18 05/24/18 06:59 18:59 Intake Total 350 Output Total 1370 Balance -1020 - Medications Medications: Current Medications Albuterol/Ipratropium (Duoneb 3 Mg/0.5 Mg (3 Ml) Ud) 3 ml INH RQ6 [facility] Last Admin: 05/24/18 13:25 Dose: 3 ml Ascorbic Acid (Vitamin C 500 Mg Tab) 500 mg PO DAILY [facility] Last Admin: 05/24/18 10:14 Dose: 500 mg Aspirin (Ecotrin) 81 mg PO DAILY [facility] Last Admin: 05/24/18 10:15 Dose: 81 mg Benzonatate (Tessalon Perles) 200 mg PO BID [facility] Last Admin: 05/24/18 10:14 Dose: 200 mg Betamethasone/Clotrimazole (Lotrisone) 0 gm TOP DAILY [facility] Last Admin: 05/24/18 10:15 Dose: 1 applic Budesonide (Pulmicort Respules) 0.5 mg INH RQ12 [facility] Last Admin: 05/24/18 08:24 Dose: 0.5 mg Ferrous Sulfate (Feosol) 325 mg PO DAILY [facility] Last Admin: 05/24/18 10:14 Dose: 325 mg Furosemide (Lasix) 80 mg IVP DAILY [facility] Last Admin: 05/24/18 10:16 Dose: 80 mg Furosemide (Lasix) 40 mg IVP DAILY@1800 [facility] Last Admin: 05/23/18 19:15 Dose: 40 mg Heparin Sodium (Porcine) (Heparin) 5,000 units SC Q12 [facility] Last Admin: 05/24/18 10:16 Dose: 5,000 units Hydralazine HCl (Apresoline) 50 mg PO BID [facility] Last Admin: 05/24/18 10:15 Dose: 50 mg Cefazolin Sodium 500 mg/ (Sodium Chloride) 50 mls @ 100 mls/hr IVPB Q8H [facility]; Protocol Last Admin: 05/24/18 12:48 Dose: 100 mls/hr Insulin Aspart (Novolog) 0 unit SC ACHS [facility]; Protocol Last Admin: 05/24/18 12:47 Dose: 6 unit Insulin Detemir (Levemir) 20 unit SC AMHS [facility] Levothyroxine Sodium (Synthroid) 75 mcg PO DAILY@0630 [facility] Last Admin: 05/24/18 06:02 Dose: 75 mcg Losartan Potassium (Cozaar) 50 mg PO DAILY [facility] Last Admin: 05/24/18 10:14 Dose: 50 mg Methylprednisolone (Solu-Medrol) 40 mg IV Q12 [facility] Last Admin: 05/24/18 11:00 Dose: 40 mg Metolazone (Zaroxolyn) 5 mg PO DAILY [facility] Last Admin: 05/24/18 10:15 Dose: 5 mg Metoprolol Succinate (Toprol Xl) 25 mg PO BID [facility] Last Admin: 05/24/18 10:14 Dose: 25 mg Silver Sulfadiazine (Silvadene 1% 20 Gm) 0 ea TOP DAILY [facility] Last Admin: 05/24/18 10:15 Dose: 1 applic Zinc Sulfate (Zinc Sulfate 220 Mg Cap) 50 mg PO DAILY [facility] Last Admin: 05/24/18 10:13 Dose: Not Given - Labs Labs: 05/22/18 08:55 05/24/18 08:11 PT 11.3 SECONDS (9.7-12.2) 05/19/18 19:50 INR 1.0 05/19/18 19:50 APTT 36 SECONDS (21-34) H 05/19/18 19:50 - Constitutional Appears: Well, Non-toxic, No Acute Distress - Extremities Exam Additional comments: RLE focsued exam: Vasc: DP/PT pulses fully palpable 2/4 b/l. Skin temperature warm to warm from proximal to distal WNL. CFT < 3 seconds to all digits b/l. Minimal edema noted to periwound area Neuro: Epicritic and protective sensation grossly intact Derm: 2 cm x 3 cm eschar noted to anterior aspect of patients right leg with decreased erythema to periwound area compared to yesterday. No malodor, drainage or fluctuance appreciated MSK: ROM at all major joints and MMT of all major muscle groups noted to be WNL at this time. No gross deformities appreciated - Neurological Exam Neurological Exam: Alert, Awake, Oriented x3 - Psychiatric Exam Psychiatric exam: Normal Affect, Normal Mood Assessment and Plan - Assessment and Plan (Free Text) Assessment: 72F seen and evaluated at bedside for right anterior leg wound with cellulitis Plan: Patient seen and evaluated with Dr. Bishop Afebrile Continue IV abx per ID Lotrisone cream and silvadene applied to wound site Wound dressed with DSD No plan for surgical intervention at this time Podiatry will continue to follow while patient in house
[2018-05-24] MEDS ORDERED: methylPREDNISolone 20 MG in Sodium Chloride 0.9% 100 ML IVPB ONE (18:57)
--- NOTE | 2018-05-24 18:57 | CP.PCM.PN ---
Subjective - Date & Time of Evaluation Date of Evaluation: 05/24/18 Time of Evaluation: 18:55 - Subjective Subjective: less sob.edema down Objective - Vital Signs/Intake and Output Vital Signs (last 24 hours): Temp Pulse Resp BP Pulse Ox 97.6 F 90 20 135/56 L 95 05/24/18 15:00 05/24/18 15:00 05/24/18 15:00 05/24/18 17:23 05/24/18 15:00 Intake and Output: 05/24/18 05/24/18 06:59 18:59 Intake Total 350 Output Total 1370 1100 Balance -1020 -1100 - Medications Medications: Current Medications Albuterol/Ipratropium (Duoneb 3 Mg/0.5 Mg (3 Ml) Ud) 3 ml INH RQ6 [facility] Last Admin: 05/24/18 13:25 Dose: 3 ml Ascorbic Acid (Vitamin C 500 Mg Tab) 500 mg PO DAILY [facility] Last Admin: 05/24/18 10:14 Dose: 500 mg Aspirin (Ecotrin) 81 mg PO DAILY [facility] Last Admin: 05/24/18 10:15 Dose: 81 mg Benzonatate (Tessalon Perles) 200 mg PO BID [facility] Last Admin: 05/24/18 17:27 Dose: 200 mg Betamethasone/Clotrimazole (Lotrisone) 0 gm TOP DAILY [facility] Last Admin: 05/24/18 10:15 Dose: 1 applic Budesonide (Pulmicort Respules) 0.5 mg INH RQ12 [facility] Last Admin: 05/24/18 08:24 Dose: 0.5 mg Ferrous Sulfate (Feosol) 325 mg PO DAILY [facility] Last Admin: 05/24/18 10:14 Dose: 325 mg Furosemide (Lasix) 80 mg IVP DAILY [facility] Last Admin: 05/24/18 10:16 Dose: 80 mg Furosemide (Lasix) 40 mg IVP DAILY@1800 [facility] Last Admin: 05/24/18 17:23 Dose: 40 mg Heparin Sodium (Porcine) (Heparin) 5,000 units SC Q12 [facility] Last Admin: 05/24/18 10:16 Dose: 5,000 units Hydralazine HCl (Apresoline) 50 mg PO BID [facility] Last Admin: 05/24/18 17:27 Dose: 50 mg Cefazolin Sodium 500 mg/ (Sodium Chloride) 50 mls @ 100 mls/hr IVPB Q8H [facility]; Protocol Last Admin: 05/24/18 12:48 Dose: 100 mls/hr Insulin Aspart (Novolog) 0 unit SC ACHS [facility]; Protocol Last Admin: 05/24/18 16:43 Dose: 6 unit Insulin Detemir (Levemir) 20 unit SC AMHS [facility] Levothyroxine Sodium (Synthroid) 75 mcg PO DAILY@0630 [facility] Last Admin: 05/24/18 06:02 Dose: 75 mcg Losartan Potassium (Cozaar) 50 mg PO DAILY [facility] Last Admin: 05/24/18 10:14 Dose: 50 mg Methylprednisolone (Solu-Medrol) 40 mg IV Q12 [facility] Last Admin: 05/24/18 11:00 Dose: 40 mg Metolazone (Zaroxolyn) 5 mg PO DAILY [facility] Last Admin: 05/24/18 10:15 Dose: 5 mg Metoprolol Succinate (Toprol Xl) 25 mg PO BID [facility] Last Admin: 05/24/18 17:27 Dose: 25 mg Silver Sulfadiazine (Silvadene 1% 20 Gm) 0 ea TOP DAILY [facility] Last Admin: 05/24/18 10:15 Dose: 1 applic Zinc Sulfate (Zinc Sulfate 220 Mg Cap) 50 mg PO DAILY [facility] Last Admin: 05/24/18 10:13 Dose: Not Given - Labs Labs: 05/22/18 08:55 05/24/18 08:11 PT 11.3 SECONDS (9.7-12.2) 05/19/18 19:50 INR 1.0 05/19/18 19:50 APTT 36 SECONDS (21-34) H 05/19/18 19:50 - Constitutional Appears: No Acute Distress, Chronically Ill - Eye Exam Eye Exam: Normal appearance - Neck Exam Neck Exam: Normal Inspection - Respiratory Exam Respiratory Exam: Rhonchi - Cardiovascular Exam Cardiovascular Exam: REGULAR RHYTHM - GI/Abdominal Exam GI & Abdominal Exam: Soft - Extremities Exam Extremities Exam: Pedal Edema - Neurological Exam Neurological Exam: Alert, Oriented x3 Assessment and Plan - Assessment and Plan (Free Text) Plan: diastolic chf getting better.may taper off steroids.
--- NOTE | 2018-05-24 19:26 | CP.PCM.PN ---
Subjective - Date & Time of Evaluation Date of Evaluation: 05/24/18 Time of Evaluation: 19:23 - Subjective Subjective: INFECTIOUS DISEASE PROGRESS NOTES OTTONIEL RANGEL MD, FACP 05/24/2018 5T CHART REVIEWED PT EXAMINED CASE DISCUSSED 72F seen and evaluated at bedside for right anterior leg wound with cellulitis. Patient is AAO x 3 and NAD, resting comfortably in bed. Denies any acute overnight events or new pedal complaints. States that she has no pain at this time. 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 BUT WILL SWITCH AB TO TEFLARO. Objective - Vital Signs/Intake and Output Vital Signs (last 24 hours): Temp Pulse Resp BP Pulse Ox 97.3 F L 83 20 171/74 H 98 05/24/18 08:07 05/24/18 08:07 05/24/18 08:07 05/24/18 10:16 05/24/18 08:07 Intake and Output: 05/24/18 05/24/18 06:59 18:59 Intake Total 350 Output Total 1370 Balance -1020 - Medications Medications: Current Medications Albuterol/Ipratropium (Duoneb 3 Mg/0.5 Mg (3 Ml) Ud) 3 ml INH RQ6 [facility] Last Admin: 05/24/18 13:25 Dose: 3 ml Ascorbic Acid (Vitamin C 500 Mg Tab) 500 mg PO DAILY [facility] Last Admin: 05/24/18 10:14 Dose: 500 mg Aspirin (Ecotrin) 81 mg PO DAILY [facility] Last Admin: 05/24/18 10:15 Dose: 81 mg Benzonatate (Tessalon Perles) 200 mg PO BID [facility] Last Admin: 05/24/18 10:14 Dose: 200 mg Betamethasone/Clotrimazole (Lotrisone) 0 gm TOP DAILY [facility] Last Admin: 05/24/18 10:15 Dose: 1 applic Budesonide (Pulmicort Respules) 0.5 mg INH RQ12 [facility] Last Admin: 05/24/18 08:24 Dose: 0.5 mg Ferrous Sulfate (Feosol) 325 mg PO DAILY [facility] Last Admin: 05/24/18 10:14 Dose: 325 mg Furosemide (Lasix) 80 mg IVP DAILY [facility] Last Admin: 05/24/18 10:16 Dose: 80 mg Furosemide (Lasix) 40 mg IVP DAILY@1800 [facility] Last Admin: 05/23/18 19:15 Dose: 40 mg Heparin Sodium (Porcine) (Heparin) 5,000 units SC Q12 [facility] Last Admin: 05/24/18 10:16 Dose: 5,000 units Hydralazine HCl (Apresoline) 50 mg PO BID [facility] Last Admin: 05/24/18 10:15 Dose: 50 mg Cefazolin Sodium 500 mg/ (Sodium Chloride) 50 mls @ 100 mls/hr IVPB Q8H [facility]; Protocol Last Admin: 05/24/18 12:48 Dose: 100 mls/hr Insulin Aspart (Novolog) 0 unit SC ACHS [facility]; Protocol Last Admin: 05/24/18 12:47 Dose: 6 unit Insulin Detemir (Levemir) 20 unit SC AMHS [facility] Levothyroxine Sodium (Synthroid) 75 mcg PO DAILY@0630 [facility] Last Admin: 05/24/18 06:02 Dose: 75 mcg Losartan Potassium (Cozaar) 50 mg PO DAILY [facility] Last Admin: 05/24/18 10:14 Dose: 50 mg Methylprednisolone (Solu-Medrol) 40 mg IV Q12 [facility] Last Admin: 05/24/18 11:00 Dose: 40 mg Metolazone (Zaroxolyn) 5 mg PO DAILY [facility] Last Admin: 05/24/18 10:15 Dose: 5 mg Metoprolol Succinate (Toprol Xl) 25 mg PO BID [facility] Last Admin: 05/24/18 10:14 Dose: 25 mg Silver Sulfadiazine (Silvadene 1% 20 Gm) 0 ea TOP DAILY [facility] Last Admin: 05/24/18 10:15 Dose: 1 applic Zinc Sulfate (Zinc Sulfate 220 Mg Cap) 50 mg PO DAILY [facility] Last Admin: 05/24/18 10:13 Dose: Not Given - Labs Labs: 05/22/18 08:55 05/24/18 08:11 PT 11.3 SECONDS (9.7-12.2) 05/19/18 19:50 INR 1.0 05/19/18 19:50 APTT 36 SECONDS (21-34) H 05/19/18 19:50 - Constitutional Appears: Well, Non-toxic, No Acute Distress - Extremities Exam Additional comments: RLE focsued exam: Vasc: DP/PT pulses fully palpable 2/4 b/l. Skin temperature warm to warm from proximal to distal WNL. CFT < 3 seconds to all digits b/l. Minimal edema noted to periwound area Neuro: Epicritic and protective sensation grossly intact Derm: 2 cm x 3 cm eschar noted to anterior aspect of patients right leg with decreased erythema to periwound area compared to yesterday. No malodor, drainage or fluctuance appreciated MSK: ROM at all major joints and MMT of all major muscle groups noted to be WNL at this time. No gross deformities appreciated - Neurological Exam Neurological Exam: Alert, Awake, Oriented x3 - Psychiatric Exam Psychiatric exam: Normal Affect, Normal Mood Objective - Vital Signs/Intake and Output Vital Signs (last 24 hours): Temp Pulse Resp BP Pulse Ox 97.6 F 90 20 135/56 L 95 05/24/18 15:00 05/24/18 15:00 05/24/18 15:00 05/24/18 17:23 05/24/18 15:00 Intake and Output: 05/24/18 05/25/18 18:59 06:59 Output Total 1100 Balance -1100 - Medications Medications: Current Medications Albuterol/Ipratropium (Duoneb 3 Mg/0.5 Mg (3 Ml) Ud) 3 ml INH RQ6 [facility] Last Admin: 05/24/18 13:25 Dose: 3 ml Ascorbic Acid (Vitamin C 500 Mg Tab) 500 mg PO DAILY [facility] Last Admin: 05/24/18 10:14 Dose: 500 mg Aspirin (Ecotrin) 81 mg PO DAILY [facility] Last Admin: 05/24/18 10:15 Dose: 81 mg Benzonatate (Tessalon Perles) 200 mg PO BID [facility] Last Admin: 05/24/18 17:27 Dose: 200 mg Betamethasone/Clotrimazole (Lotrisone) 0 gm TOP DAILY [facility] Last Admin: 05/24/18 10:15 Dose: 1 applic Budesonide (Pulmicort Respules) 0.5 mg INH RQ12 [facility] Last Admin: 05/24/18 08:24 Dose: 0.5 mg Ferrous Sulfate (Feosol) 325 mg PO DAILY [facility] Last Admin: 05/24/18 10:14 Dose: 325 mg Furosemide (Lasix) 80 mg IVP DAILY [facility] Last Admin: 05/24/18 10:16 Dose: 80 mg Furosemide (Lasix) 40 mg IVP DAILY@1800 [facility] Last Admin: 05/24/18 17:23 Dose: 40 mg Heparin Sodium (Porcine) (Heparin) 5,000 units SC Q12 [facility] Last Admin: 05/24/18 10:16 Dose: 5,000 units Hydralazine HCl (Apresoline) 50 mg PO BID [facility] Last Admin: 05/24/18 17:27 Dose: 50 mg Ceftaroline Fosamil 600 mg/ (Sodium Chloride) 100 mls @ 100 mls/hr IVPB Q12H [facility]; Protocol Insulin Aspart (Novolog) 0 unit SC ACHS [facility]; Protocol Last Admin: 05/24/18 16:43 Dose: 6 unit Insulin Detemir (Levemir) 20 unit SC [facility] Levothyroxine Sodium (Synthroid) 75 mcg PO DAILY@0630 [facility] Last Admin: 05/24/18 06:02 Dose: 75 mcg Losartan Potassium (Cozaar) 50 mg PO DAILY [facility] Last Admin: 05/24/18 10:14 Dose: 50 mg Methylprednisolone (Solu-Medrol) 20 mg IV Q12H [facility] Metolazone (Zaroxolyn) 5 mg PO DAILY [facility] Last Admin: 05/24/18 10:15 Dose: 5 mg Metoprolol Succinate (Toprol Xl) 25 mg PO BID [facility] Last Admin: 05/24/18 17:27 Dose: 25 mg Silver Sulfadiazine (Silvadene 1% 20 Gm) 0 ea TOP DAILY [facility] Last Admin: 05/24/18 10:15 Dose: 1 applic Zinc Sulfate (Zinc Sulfate 220 Mg Cap) 50 mg PO DAILY [facility] Last Admin: 05/24/18 10:13 Dose: Not Given - Labs Labs: 05/22/18 08:55 05/24/18 08:11 PT 11.3 SECONDS (9.7-12.2) 05/19/18 19:50 INR 1.0 05/19/18 19:50 APTT 36 SECONDS (21-34) H 05/19/18 19:50
--- NOTE | 2018-05-24 19:29 | CP.PCM.PN ---
Subjective - Date & Time of Evaluation Date of Evaluation: 05/22/18 Time of Evaluation: 17:00 - Subjective Subjective: INFECTIOUS DISEASE PROGRESS NOTES OTTONIEL RANGEL MD, FACP 5T 05/22/2018 CHART REVIEWED PT EXAMINED CASE DISCUSSED CLINICALLY IMPROVING BUT HER SUGAR IS A MAIN ISSUES. TOPICAL MANAGEMENT AND IV AB ARE WORKING AWAITING C/S RESULTS Objective - Vital Signs/Intake and Output Vital Signs (last 24 hours): Temp Pulse Resp BP Pulse Ox 97.6 F 90 20 135/56 L 95 05/24/18 15:00 05/24/18 15:00 05/24/18 15:00 05/24/18 17:23 05/24/18 15:00 Intake and Output: 05/24/18 05/25/18 18:59 06:59 Output Total 1100 Balance -1100 - Medications Medications: Current Medications Albuterol/Ipratropium (Duoneb 3 Mg/0.5 Mg (3 Ml) Ud) 3 ml INH RQ6 [facility] Last Admin: 05/24/18 13:25 Dose: 3 ml Ascorbic Acid (Vitamin C 500 Mg Tab) 500 mg PO DAILY [facility] Last Admin: 05/24/18 10:14 Dose: 500 mg Aspirin (Ecotrin) 81 mg PO DAILY [facility] Last Admin: 05/24/18 10:15 Dose: 81 mg Benzonatate (Tessalon Perles) 200 mg PO BID [facility] Last Admin: 05/24/18 17:27 Dose: 200 mg Betamethasone/Clotrimazole (Lotrisone) 0 gm TOP DAILY [facility] Last Admin: 05/24/18 10:15 Dose: 1 applic Budesonide (Pulmicort Respules) 0.5 mg INH RQ12 [facility] Last Admin: 05/24/18 08:24 Dose: 0.5 mg Ferrous Sulfate (Feosol) 325 mg PO DAILY [facility] Last Admin: 05/24/18 10:14 Dose: 325 mg Furosemide (Lasix) 80 mg IVP DAILY [facility] Last Admin: 05/24/18 10:16 Dose: 80 mg Furosemide (Lasix) 40 mg IVP DAILY@1800 [facility] Last Admin: 05/24/18 17:23 Dose: 40 mg Heparin Sodium (Porcine) (Heparin) 5,000 units SC Q12 [facility] Last Admin: 05/24/18 10:16 Dose: 5,000 units Hydralazine HCl (Apresoline) 50 mg PO BID [facility] Last Admin: 05/24/18 17:27 Dose: 50 mg Ceftaroline Fosamil 600 mg/ (Sodium Chloride) 100 mls @ 100 mls/hr IVPB Q12H [facility]; Protocol Insulin Aspart (Novolog) 0 unit SC ACHS [facility]; Protocol Last Admin: 05/24/18 16:43 Dose: 6 unit Insulin Detemir (Levemir) 20 unit SC AMHS [facility] Levothyroxine Sodium (Synthroid) 75 mcg PO DAILY@0630 [facility] Last Admin: 05/24/18 06:02 Dose: 75 mcg Losartan Potassium (Cozaar) 50 mg PO DAILY [facility] Last Admin: 05/24/18 10:14 Dose: 50 mg Methylprednisolone (Solu-Medrol) 20 mg IV Q12H [facility] Metolazone (Zaroxolyn) 5 mg PO DAILY [facility] Last Admin: 05/24/18 10:15 Dose: 5 mg Metoprolol Succinate (Toprol Xl) 25 mg PO BID [facility] Last Admin: 05/24/18 17:27 Dose: 25 mg Silver Sulfadiazine (Silvadene 1% 20 Gm) 0 ea TOP DAILY [facility] Last Admin: 05/24/18 10:15 Dose: 1 applic Zinc Sulfate (Zinc Sulfate 220 Mg Cap) 50 mg PO DAILY [facility] Last Admin: 05/24/18 10:13 Dose: Not Given - Labs Labs: 05/22/18 08:55 05/24/18 08:11 PT 11.3 SECONDS (9.7-12.2) 05/19/18 19:50 INR 1.0 05/19/18 19:50 APTT 36 SECONDS (21-34) H 05/19/18 19:50
[2018-05-24] MEDS: Ceftaroline 600 MG in Sodium Chloride 0.9% 100 ML IVPB SCH (19:50)
[2018-05-25] MEDS: Albuterol-Ipratrop 3 mg / 0.5 (3 ml) UD INH SCH ×2 (01:50→08:09)
[2018-05-25] MEDS ORDERED: (Novolin R) Insulin Human Regular 100 units/ml vial SC ONE (02:21)
[2018-05-25] MEDS: Levothyroxine 75 MCG TAB PO SCH (06:29)
[2018-05-25] MEDS: Ceftaroline 600 MG in Sodium Chloride 0.9% 100 ML IVPB SCH ×2 (06:30→19:35)
--- NOTE | 2018-05-25 07:24 | CP.PCM.PN ---
Subjective - Date & Time of Evaluation Date of Evaluation: 05/25/18 Time of Evaluation: 07:21 - Subjective Subjective: lying flat myalgias + no sob or chest pain monsivais in no n/v/d no fever or chills no headache no dysuria no rash mild edema Objective - Vital Signs/Intake and Output Vital Signs (last 24 hours): Temp Pulse Resp BP Pulse Ox 98.1 F 84 20 132/67 96 05/25/18 00:00 05/25/18 03:58 05/25/18 00:00 05/25/18 00:00 05/25/18 00:00 Intake and Output: 05/25/18 05/25/18 06:59 18:59 Output Total 1200 Balance -1200 - Medications Medications: Current Medications Albuterol/Ipratropium (Duoneb 3 Mg/0.5 Mg (3 Ml) Ud) 3 ml INH RQ6 [facility] Last Admin: 05/25/18 01:50 Dose: Not Given Ascorbic Acid (Vitamin C 500 Mg Tab) 500 mg PO DAILY [facility] Last Admin: 05/24/18 10:14 Dose: 500 mg Aspirin (Ecotrin) 81 mg PO DAILY [facility] Last Admin: 05/24/18 10:15 Dose: 81 mg Benzonatate (Tessalon Perles) 200 mg PO BID [facility] Last Admin: 05/24/18 17:27 Dose: 200 mg Betamethasone/Clotrimazole (Lotrisone) 0 gm TOP DAILY [facility] Last Admin: 05/24/18 10:15 Dose: 1 applic Budesonide (Pulmicort Respules) 0.5 mg INH RQ12 [facility] Last Admin: 05/24/18 19:28 Dose: 0.5 mg Ferrous Sulfate (Feosol) 325 mg PO DAILY [facility] Last Admin: 05/24/18 10:14 Dose: 325 mg Furosemide (Lasix) 80 mg IVP DAILY [facility] Last Admin: 05/24/18 10:16 Dose: 80 mg Furosemide (Lasix) 40 mg IVP DAILY@1800 [facility] Last Admin: 05/24/18 17:23 Dose: 40 mg Heparin Sodium (Porcine) (Heparin) 5,000 units SC Q12 [facility] Last Admin: 05/24/18 21:59 Dose: 5,000 units Hydralazine HCl (Apresoline) 50 mg PO BID [facility] Last Admin: 05/24/18 17:27 Dose: 50 mg Ceftaroline Fosamil 600 mg/ (Sodium Chloride) 100 mls @ 100 mls/hr IVPB Q12H [facility]; Protocol Last Admin: 05/25/18 06:30 Dose: 100 mls/hr Insulin Aspart (Novolog) 0 unit SC ACHS [facility]; Protocol Last Admin: 05/24/18 22:00 Dose: 8 unit Insulin Detemir (Levemir) 20 unit SC AMHS [facility] Last Admin: 05/24/18 22:03 Dose: Not Given Levothyroxine Sodium (Synthroid) 75 mcg PO DAILY@0630 [facility] Last Admin: 05/25/18 06:29 Dose: 75 mcg Losartan Potassium (Cozaar) 50 mg PO DAILY [facility] Last Admin: 05/24/18 10:14 Dose: 50 mg Metolazone (Zaroxolyn) 5 mg PO DAILY [facility] Last Admin: 05/24/18 10:15 Dose: 5 mg Metoprolol Succinate (Toprol Xl) 25 mg PO BID [facility] Last Admin: 05/24/18 17:27 Dose: 25 mg Silver Sulfadiazine (Silvadene 1% 20 Gm) 0 ea TOP DAILY [facility] Last Admin: 05/24/18 10:15 Dose: 1 applic Zinc Sulfate (Zinc Sulfate 220 Mg Cap) 50 mg PO DAILY [facility] Last Admin: 05/24/18 10:13 Dose: Not Given - Labs Labs: 05/22/18 08:55 05/24/18 08:11 PT 11.3 SECONDS (9.7-12.2) 05/19/18 19:50 INR 1.0 05/19/18 19:50 APTT 36 SECONDS (21-34) H 05/19/18 19:50 - Constitutional Appears: Non-toxic, Chronically Ill - Head Exam Head Exam: ATRAUMATIC, NORMAL INSPECTION - Eye Exam Eye Exam: EOMI - ENT Exam ENT Exam: Mucous Membranes Moist - Neck Exam Neck Exam: Full ROM. absent: Lymphadenopathy - Respiratory Exam Respiratory Exam: Decreased Breath Sounds. absent: Accessory Muscle Use - Cardiovascular Exam Cardiovascular Exam: REGULAR RHYTHM. absent: Rubs - GI/Abdominal Exam GI & Abdominal Exam: Distended, Soft. absent: Tenderness - Extremities Exam Extremities Exam: Pedal Edema Additional comments: right leg bandaged - Neurological Exam Neurological Exam: Alert, Awake, Oriented x3 - Psychiatric Exam Psychiatric exam: Normal Affect, Normal Mood Assessment and Plan - Assessment and Plan (Free Text) Assessment: diabetic kidney disease volume overloaded, on loop and thiazide diuretic PVD, right foot infection poor control of diabetes continue diuresis trend labs wound care and AB for now
[2018-05-25] MEDS: Budesonide 0.5 mg/2 ml Inhal Susp UD INH SCH ×2 (08:09→20:31)
[2018-05-25] MEDS: Metoprolol Succinate 25 mg XL Tab PO SCH ×2 (09:25→18:27)
[2018-05-25] MEDS: (Novolog) Insulin Aspart, Recombinant 100 u/ml 10 ml vial SC SCH ×4 (09:26→21:19)
[2018-05-25] MEDS: Clotrimazole/Betamethasone Cream(15 gm) TOP SCH (09:27)
[2018-05-25] MEDS: Silver Sulfadiazine 1% Cream (20 gm) TOP SCH (09:27)
[2018-05-25] MEDS ORDERED: MethylPREDNISolone 40 mg Vial IV SCH (10:00)
--- NOTE | 2018-05-25 11:21 | CP.PCM.PN ---
Subjective - Date & Time of Evaluation Date of Evaluation: 05/25/18 Time of Evaluation: 11:20 - Subjective Subjective: Pulmonary progress note for Dr. Scruggs's service Patient was seen and examined at bedside. Patient was comfortable without oxygen. Patient has no current complaints Patient denies cough, SOB, fevers, chills, nausea, vomiting, chest pain, and diarrhea. Objective - Vital Signs/Intake and Output Vital Signs (last 24 hours): Temp Pulse Resp BP Pulse Ox 97.8 F 74 20 116/73 96 05/25/18 08:19 05/25/18 08:19 05/25/18 08:19 05/25/18 09:26 05/25/18 08:19 Intake and Output: 05/25/18 05/25/18 06:59 18:59 Output Total 1200 Balance -1200 - Medications Medications: Current Medications Ascorbic Acid (Vitamin C 500 Mg Tab) 500 mg PO DAILY [facility] Last Admin: 05/25/18 09:25 Dose: 500 mg Aspirin (Ecotrin) 81 mg PO DAILY [facility] Last Admin: 05/25/18 09:25 Dose: 81 mg Benzonatate (Tessalon Perles) 200 mg PO BID [facility] Last Admin: 05/25/18 09:26 Dose: 200 mg Betamethasone/Clotrimazole (Lotrisone) 0 gm TOP DAILY [facility] Last Admin: 05/25/18 09:27 Dose: 1 applic Budesonide (Pulmicort Respules) 0.5 mg INH RQ12 [facility] Last Admin: 05/25/18 08:09 Dose: 0.5 mg Ferrous Sulfate (Feosol) 325 mg PO DAILY [facility] Last Admin: 05/25/18 09:25 Dose: 325 mg Furosemide (Lasix) 80 mg IVP DAILY [facility] Last Admin: 05/25/18 09:26 Dose: 80 mg Furosemide (Lasix) 40 mg IVP DAILY@1800 [facility] Last Admin: 05/24/18 17:23 Dose: 40 mg Heparin Sodium (Porcine) (Heparin) 5,000 units SC Q12 [facility] Last Admin: 05/25/18 09:25 Dose: 5,000 units Hydralazine HCl (Apresoline) 50 mg PO BID [facility] Last Admin: 05/25/18 09:25 Dose: 50 mg Ceftaroline Fosamil 600 mg/ (Sodium Chloride) 100 mls @ 100 mls/hr IVPB Q12H [facility]; Protocol Last Admin: 05/25/18 06:30 Dose: 100 mls/hr Insulin Aspart (Novolog) 0 unit SC ACHS [facility]; Protocol Last Admin: 05/25/18 09:26 Dose: 1 unit Insulin Detemir (Levemir) 20 unit SC [facility] Last Admin: 05/24/18 22:03 Dose: Not Given Levothyroxine Sodium (Synthroid) 75 mcg PO DAILY@0630 [facility] Last Admin: 05/25/18 06:29 Dose: 75 mcg Losartan Potassium (Cozaar) 50 mg PO DAILY [facility] Last Admin: 05/25/18 09:25 Dose: 50 mg Metolazone (Zaroxolyn) 5 mg PO DAILY [facility] Last Admin: 05/24/18 10:15 Dose: 5 mg Metoprolol Succinate (Toprol Xl) 25 mg PO BID [facility] Last Admin: 05/25/18 09:25 Dose: 25 mg Silver Sulfadiazine (Silvadene 1% 20 Gm) 0 ea TOP DAILY [facility] Last Admin: 05/25/18 09:27 Dose: 1 applic Zinc Sulfate (Zinc Sulfate 220 Mg Cap) 50 mg PO DAILY [facility] Last Admin: 05/24/18 10:13 Dose: Not Given - Labs Labs: 05/22/18 08:55 05/24/18 08:11 PT 11.3 SECONDS (9.7-12.2) 05/19/18 19:50 INR 1.0 05/19/18 19:50 APTT 36 SECONDS (21-34) H 05/19/18 19:50 - Constitutional Appears: Non-toxic, No Acute Distress, Chronically Ill - Head Exam Head Exam: NORMAL INSPECTION - Eye Exam Eye Exam: EOMI, Normal appearance Pupil Exam: NORMAL ACCOMODATION, PERRL - ENT Exam ENT Exam: Mucous Membranes Moist, Normal Exam - Neck Exam Neck Exam: Full ROM, Normal Inspection - Respiratory Exam Respiratory Exam: Clear to Ausculation Bilateral, NORMAL BREATHING PATTERN. absent: Rales, Rhonchi, Wheezes - Cardiovascular Exam Cardiovascular Exam: REGULAR RHYTHM, +S1, +S2 - GI/Abdominal Exam GI & Abdominal Exam: Normal Bowel Sounds - Skin Skin Exam: Normal Color, Warm Additional comments: Patient dressing was changed. Assessment and Plan - Assessment and Plan (Free Text) Assessment: 72 year old female with a PMH of DM type 1, CHF, HTN, CKD, hypothyriod, and sleep apnea. Pulmonary was consulted for SOB. Plan: A: HFpEF Hx of COPD on charts but patient denies smoking history Uncontrolled Blood sugars Hyperkalemia P: Duoneb PRN Pulmicort q12 IV steroids Continue Ceftaroline 600 mg Lasix 40mg IV daily Metolazone 5mg po daily Pending repeat CMP Increase insulin requirements as patient is on steroids Recommend kayexlate (breathing treatments should help as well and insulin) for decreasing potassium Further medical management as per primary
[2018-05-25] MEDS ORDERED: Albuterol-Ipratrop 3 mg / 0.5 (3 ml) UD INH PRN (11:39)
--- NOTE | 2018-05-25 11:46 | CP.PCM.PN ---
Subjective - Date & Time of Evaluation Date of Evaluation: 05/25/18 Time of Evaluation: 11:44 - Subjective Subjective: cough ++.no sob. Objective - Vital Signs/Intake and Output Vital Signs (last 24 hours): Temp Pulse Resp BP Pulse Ox 97.8 F 74 20 116/73 96 05/25/18 08:19 05/25/18 08:19 05/25/18 08:19 05/25/18 09:26 05/25/18 08:19 Intake and Output: 05/25/18 05/25/18 06:59 18:59 Output Total 1200 Balance -1200 - Medications Medications: Current Medications Albuterol/Ipratropium (Duoneb 3 Mg/0.5 Mg (3 Ml) Ud) 3 ml INH RQ4 PRN PRN Reason: Shortness of Breath Ascorbic Acid (Vitamin C 500 Mg Tab) 500 mg PO DAILY [facility] Last Admin: 05/25/18 09:25 Dose: 500 mg Aspirin (Ecotrin) 81 mg PO DAILY [facility] Last Admin: 05/25/18 09:25 Dose: 81 mg Benzonatate (Tessalon Perles) 200 mg PO BID [facility] Last Admin: 05/25/18 09:26 Dose: 200 mg Betamethasone/Clotrimazole (Lotrisone) 0 gm TOP DAILY [facility] Last Admin: 05/25/18 09:27 Dose: 1 applic Budesonide (Pulmicort Respules) 0.5 mg INH RQ12 [facility] Last Admin: 05/25/18 08:09 Dose: 0.5 mg Ferrous Sulfate (Feosol) 325 mg PO DAILY [facility] Last Admin: 05/25/18 09:25 Dose: 325 mg Furosemide (Lasix) 80 mg IVP DAILY [facility] Last Admin: 05/25/18 09:26 Dose: 80 mg Furosemide (Lasix) 40 mg IVP DAILY@1800 [facility] Last Admin: 05/24/18 17:23 Dose: 40 mg Heparin Sodium (Porcine) (Heparin) 5,000 units SC Q12 [facility] Last Admin: 05/25/18 09:25 Dose: 5,000 units Hydralazine HCl (Apresoline) 50 mg PO BID [facility] Last Admin: 05/25/18 09:25 Dose: 50 mg Ceftaroline Fosamil 600 mg/ (Sodium Chloride) 100 mls @ 100 mls/hr IVPB Q12H [facility]; Protocol Last Admin: 05/25/18 06:30 Dose: 100 mls/hr Insulin Aspart (Novolog) 0 unit SC ACHS [facility]; Protocol Last Admin: 05/25/18 09:26 Dose: 1 unit Insulin Detemir (Levemir) 20 unit SC AMHS [facility] Last Admin: 05/24/18 22:03 Dose: Not Given Levothyroxine Sodium (Synthroid) 75 mcg PO DAILY@0630 [facility] Last Admin: 05/25/18 06:29 Dose: 75 mcg Losartan Potassium (Cozaar) 50 mg PO DAILY [facility] Last Admin: 05/25/18 09:25 Dose: 50 mg Metolazone (Zaroxolyn) 5 mg PO DAILY [facility] Last Admin: 05/24/18 10:15 Dose: 5 mg Metoprolol Succinate (Toprol Xl) 25 mg PO BID [facility] Last Admin: 05/25/18 09:25 Dose: 25 mg Pantoprazole Sodium (Protonix Ec Tab) 40 mg PO DAILY [facility] Prednisone (Prednisone Tab) 20 mg PO BID [facility] Silver Sulfadiazine (Silvadene 1% 20 Gm) 0 ea TOP DAILY [facility] Last Admin: 05/25/18 09:27 Dose: 1 applic Zinc Sulfate (Zinc Sulfate 220 Mg Cap) 50 mg PO DAILY [facility] Last Admin: 05/24/18 10:13 Dose: Not Given - Labs Labs: 05/22/18 08:55 05/24/18 08:11 PT 11.3 SECONDS (9.7-12.2) 05/19/18 19:50 INR 1.0 05/19/18 19:50 APTT 36 SECONDS (21-34) H 05/19/18 19:50 - Constitutional Appears: No Acute Distress, Chronically Ill - Head Exam Head Exam: NORMOCEPHALIC - Neck Exam Neck Exam: Normal Inspection - Respiratory Exam Respiratory Exam: Wheezes - Cardiovascular Exam Cardiovascular Exam: REGULAR RHYTHM - GI/Abdominal Exam GI & Abdominal Exam: Soft - Extremities Exam Extremities Exam: Pedal Edema - Neurological Exam Neurological Exam: Alert, Oriented x3 Assessment and Plan - Assessment and Plan (Free Text) Assessment: copd,chf.dm.accu check better.will d/c iv solumedrrol & add prednisone.hba1c.hopefully d/c in am.
[2018-05-25] MEDS: Pantoprazole 40 mg EC Tab PO SCH (11:51)
[2018-05-25] MEDS: metOLazone 5 MG TAB PO SCH (11:51)
[2018-05-25] MEDS: Insulin Detemir 100 units/ml Vial (Levemir) SC SCH ×2 (11:54→21:19)
[2018-05-25 14:31] LABS: BASO % 0.6 % (0.0-2.0); EOS # 0.1 K/uL (0.0-0.7); EOS % 0.9 % (0.0-4.0); HEMOGLOBIN 10.8 g/dL (11.0-16.0); LYMPH # 1.7 K/uL (1.0-4.3); LYMPH % 27.5 % (20.0-40.0); MEAN CELL VOLUME 94.7 fL (81.0-99.0); MEAN CORPUSCULAR HEMOGLOBIN 31.3 pg (27.0-31.0); MEAN CORPUSCULAR HGB CONC 33.1 g/dL (33.0-37.0); MEAN PLATELET VOLUME 8.9 fL (7.2-11.7); MONO # 0.4 K/uL (0.0-0.8); MONO % 6.6 % (0.0-10.0); NEUT # 3.9 K/uL (1.8-7.0); NEUT % 64.4 % (50.0-75.0); NRBC % 0.1 % (0.0-2.0); RBC 3.45 Mil/uL (3.80-5.20); RED CELL DISTRIBUTION WIDTH 13.9 % (11.5-14.5); WHITE BLOOD COUNT 6.1 K/uL (4.8-10.8)
[2018-05-25 14:50] LABS: ALBUMIN 3.7 g/dL (3.5-5.0); ALT/SGPT < 6 U/L (9-52); AST/SGOT 23 U/L (14-36); BLOOD UREA NITROGEN 47 mg/dL (7-17); CALCIUM 9.1 mg/dl (8.6-10.4); GFR NON-AFRICAN AMERICAN 37
[2018-05-26 01:46] VITALS: O2SAT 96
[2018-05-26] MEDS ORDERED: (Novolin R) Insulin Human Regular 100 units/ml vial SC ONE (02:27)
[2018-05-26] MEDS: Levothyroxine 75 MCG TAB PO SCH (06:14)
[2018-05-26] MEDS: (Novolog) Insulin Aspart, Recombinant 100 u/ml 10 ml vial SC SCH ×2 (08:15→11:50)
[2018-05-26] MEDS: Ceftaroline 600 MG in Sodium Chloride 0.9% 100 ML IVPB SCH (08:16)
[2018-05-26 08:52] VITALS: RESP 18; TEMP 97.9
[2018-05-26] MEDS: Clotrimazole/Betamethasone Cream(15 gm) TOP SCH (10:00)
[2018-05-26] MEDS: Silver Sulfadiazine 1% Cream (20 gm) TOP SCH (10:00)
[2018-05-26] MEDS: Insulin Detemir 100 units/ml Vial (Levemir) SC SCH (10:00)
[2018-05-26] MEDS: Pantoprazole 40 mg EC Tab PO SCH (10:01)
[2018-05-26] MEDS: metOLazone 5 MG TAB PO SCH (10:02)
[2018-05-26] MEDS: Metoprolol Succinate 25 mg XL Tab PO SCH ×3 (10:02→10:22)
[2018-05-26 10:06] VITALS: BP 111/54; PULSE 70
--- NOTE | 2018-05-26 10:53 | CP.PCM.PN ---
Subjective - Date & Time of Evaluation Date of Evaluation: 05/26/18 Time of Evaluation: 10:51 - Subjective Subjective: feels better much less swollen less dyspnea MRSA noted in wound creat sl increase-1.4 lytes acceptable Objective - Vital Signs/Intake and Output Vital Signs (last 24 hours): Temp Pulse Resp BP Pulse Ox 97.9 F 70 18 111/54 L 96 05/26/18 07:50 05/26/18 10:06 05/26/18 07:50 05/26/18 10:06 05/26/18 07:50 Intake and Output: 05/26/18 05/26/18 06:59 18:59 Output Total 850 Balance -850 - Medications Medications: Current Medications Albuterol/Ipratropium (Duoneb 3 Mg/0.5 Mg (3 Ml) Ud) 3 ml INH RQ4 PRN PRN Reason: Shortness of Breath Last Admin: 05/25/18 20:31 Dose: 3 ml Ascorbic Acid (Vitamin C 500 Mg Tab) 500 mg PO DAILY [facility] Last Admin: 05/26/18 10:02 Dose: 500 mg Aspirin (Ecotrin) 81 mg PO DAILY [facility] Last Admin: 05/26/18 10:01 Dose: 81 mg Benzonatate (Tessalon Perles) 200 mg PO BID [facility] Last Admin: 05/26/18 10:01 Dose: 200 mg Betamethasone/Clotrimazole (Lotrisone) 0 gm TOP DAILY [facility] Last Admin: 05/26/18 10:00 Dose: 1 applic Budesonide (Pulmicort Respules) 0.5 mg INH RQ12 [facility] Last Admin: 05/25/18 20:31 Dose: 0.5 mg Ferrous Sulfate (Feosol) 325 mg PO DAILY [facility] Last Admin: 05/26/18 10:01 Dose: 325 mg Furosemide (Lasix) 80 mg IVP DAILY [facility] Last Admin: 05/26/18 10:04 Dose: 80 mg Furosemide (Lasix) 40 mg IVP DAILY@1800 [facility] Last Admin: 05/25/18 18:28 Dose: 40 mg Heparin Sodium (Porcine) (Heparin) 5,000 units SC Q12 [facility] Last Admin: 05/26/18 10:02 Dose: 5,000 units Ceftaroline Fosamil 600 mg/ (Sodium Chloride) 100 mls @ 100 mls/hr IVPB Q12H [facility]; Protocol Last Admin: 05/26/18 08:16 Dose: 100 mls/hr Insulin Aspart (Novolog) 0 unit SC ACHS [facility]; Protocol Last Admin: 05/26/18 08:15 Dose: 4 u Insulin Detemir (Levemir) 20 unit SC AMHS [facility] Last Admin: 05/26/18 10:00 Dose: 20 units Levothyroxine Sodium (Synthroid) 75 mcg PO DAILY@0630 [facility] Last Admin: 05/26/18 06:14 Dose: 75 mcg Losartan Potassium (Cozaar) 50 mg PO DAILY [facility] Last Admin: 05/26/18 10:22 Dose: 50 mg Metolazone (Zaroxolyn) 5 mg PO DAILY [facility] Last Admin: 05/26/18 10:02 Dose: 5 mg Metoprolol Succinate (Toprol Xl) 25 mg PO BID [facility] Last Admin: 05/26/18 10:22 Dose: 25 mg Pantoprazole Sodium (Protonix Ec Tab) 40 mg PO DAILY [facility] Last Admin: 05/26/18 10:01 Dose: 40 mg Prednisone (Prednisone Tab) 20 mg PO BID [facility] Last Admin: 05/26/18 10:02 Dose: 20 mg Silver Sulfadiazine (Silvadene 1% 20 Gm) 0 ea TOP DAILY [facility] Last Admin: 05/26/18 10:00 Dose: 1 applic Zinc Sulfate (Zinc Sulfate 220 Mg Cap) 50 mg PO DAILY [facility] Last Admin: 05/26/18 10:02 Dose: 50 mg - Labs Labs: 05/25/18 14:23 05/25/18 14:23 PT 11.3 SECONDS (9.7-12.2) 05/19/18 19:50 INR 1.0 05/19/18 19:50 APTT 36 SECONDS (21-34) H 05/19/18 19:50 - Constitutional Appears: No Acute Distress, Chronically Ill - Head Exam Head Exam: ATRAUMATIC, NORMAL INSPECTION - Eye Exam Eye Exam: EOMI, Normal appearance - Neck Exam Neck Exam: Normal Inspection. absent: Tenderness - Respiratory Exam Respiratory Exam: Clear to Ausculation Bilateral, NORMAL BREATHING PATTERN - Cardiovascular Exam Cardiovascular Exam: REGULAR RHYTHM, +S1 - GI/Abdominal Exam GI & Abdominal Exam: Soft. absent: Tenderness - Extremities Exam Extremities Exam: Normal Inspection, Tenderness - Neurological Exam Neurological Exam: Awake, CN II-XII Intact - Skin Skin Exam: Dry, Warm Assessment and Plan (1) COPD (chronic obstructive pulmonary disease) Status: Acute (2) Chronic kidney disease, stage III (moderate) Status: Acute (3) Cellulitis and abscess of left leg Status: Acute (4) Congestive heart failure Status: Acute - Assessment and Plan (Free Text) Plan: ABs as per ID monitor renal function diuretic dosage as per cardio
[2018-05-26] MEDS: Budesonide 0.5 mg/2 ml Inhal Susp UD INH SCH (11:36)
--- NOTE | 2018-05-26 12:55 | CP.PCM.PN ---
Subjective - Date & Time of Evaluation Date of Evaluation: 05/26/18 Time of Evaluation: 12:54 - Subjective Subjective: Pulmonary progress note for Dr. Scruggs's service Patient was seen and examined at bedside. Patient was comfortable without oxygen. Patient says her cough has improved. Patient denies SOB, fevers, chills, nausea, vomiting, chest pain, and diarrhea. Objective - Vital Signs/Intake and Output Vital Signs (last 24 hours): Temp Pulse Resp BP Pulse Ox 97.9 F 70 18 111/54 L 96 05/26/18 07:50 05/26/18 10:06 05/26/18 07:50 05/26/18 10:06 05/26/18 07:50 Intake and Output: 05/26/18 05/26/18 06:59 18:59 Output Total 850 625 Balance -850 -625 - Medications Medications: Current Medications Albuterol/Ipratropium (Duoneb 3 Mg/0.5 Mg (3 Ml) Ud) 3 ml INH RQ4 PRN PRN Reason: Shortness of Breath Last Admin: 05/25/18 20:31 Dose: 3 ml Ascorbic Acid (Vitamin C 500 Mg Tab) 500 mg PO DAILY [facility] Last Admin: 05/26/18 10:02 Dose: 500 mg Aspirin (Ecotrin) 81 mg PO DAILY [facility] Last Admin: 05/26/18 10:01 Dose: 81 mg Benzonatate (Tessalon Perles) 200 mg PO BID [facility] Last Admin: 05/26/18 10:01 Dose: 200 mg Betamethasone/Clotrimazole (Lotrisone) 0 gm TOP DAILY [facility] Last Admin: 05/26/18 10:00 Dose: 1 applic Budesonide (Pulmicort Respules) 0.5 mg INH RQ12 [facility] Last Admin: 05/26/18 11:36 Dose: Not Given Ferrous Sulfate (Feosol) 325 mg PO DAILY [facility] Last Admin: 05/26/18 10:01 Dose: 325 mg Furosemide (Lasix) 80 mg IVP DAILY [facility] Last Admin: 05/26/18 10:04 Dose: 80 mg Furosemide (Lasix) 40 mg IVP DAILY@1800 [facility] Last Admin: 05/25/18 18:28 Dose: 40 mg Heparin Sodium (Porcine) (Heparin) 5,000 units SC Q12 [facility] Last Admin: 05/26/18 10:02 Dose: 5,000 units Ceftaroline Fosamil 600 mg/ (Sodium Chloride) 100 mls @ 100 mls/hr IVPB Q12H [facility]; Protocol Last Admin: 05/26/18 08:16 Dose: 100 mls/hr Insulin Aspart (Novolog) 0 unit SC ACHS [facility]; Protocol Last Admin: 05/26/18 11:50 Dose: 3 u Insulin Detemir (Levemir) 20 unit SC [facility] Last Admin: 05/26/18 10:00 Dose: 20 units Levothyroxine Sodium (Synthroid) 75 mcg PO DAILY@0630 [facility] Last Admin: 05/26/18 06:14 Dose: 75 mcg Losartan Potassium (Cozaar) 50 mg PO DAILY [facility] Last Admin: 05/26/18 10:22 Dose: 50 mg Metolazone (Zaroxolyn) 5 mg PO DAILY [facility] Last Admin: 05/26/18 10:02 Dose: 5 mg Metoprolol Succinate (Toprol Xl) 25 mg PO BID [facility] Last Admin: 05/26/18 10:22 Dose: 25 mg Pantoprazole Sodium (Protonix Ec Tab) 40 mg PO DAILY [facility] Last Admin: 05/26/18 10:01 Dose: 40 mg Prednisone (Prednisone Tab) 20 mg PO DAILY [facility] Silver Sulfadiazine (Silvadene 1% 20 Gm) 0 ea TOP DAILY [facility] Last Admin: 05/26/18 10:00 Dose: 1 applic Zinc Sulfate (Zinc Sulfate 220 Mg Cap) 50 mg PO DAILY [facility] Last Admin: 05/26/18 10:02 Dose: 50 mg - Labs Labs: 05/25/18 14:23 05/25/18 14:23 PT 11.3 SECONDS (9.7-12.2) 05/19/18 19:50 INR 1.0 05/19/18 19:50 APTT 36 SECONDS (21-34) H 05/19/18 19:50 - Constitutional Appears: Non-toxic, No Acute Distress, Chronically Ill - Head Exam Head Exam: NORMAL INSPECTION - Eye Exam Eye Exam: EOMI, Normal appearance, PERRL Pupil Exam: NORMAL ACCOMODATION - ENT Exam ENT Exam: Mucous Membranes Moist, Normal Exam - Neck Exam Neck Exam: Normal Inspection - Respiratory Exam Respiratory Exam: Clear to Ausculation Bilateral, NORMAL BREATHING PATTERN. absent: Rales, Rhonchi, Wheezes - Cardiovascular Exam Cardiovascular Exam: REGULAR RHYTHM, +S1, +S2 - GI/Abdominal Exam GI & Abdominal Exam: Normal Bowel Sounds - Neurological Exam Neurological Exam: Alert, Awake, Oriented x3 - Psychiatric Exam Psychiatric exam: Normal Mood - Skin Skin Exam: Normal Color, Warm Additional comments: dressing has not been changed today. Assessment and Plan - Assessment and Plan (Free Text) Assessment: 72 year old [place] female with a PMH of DM type 1, CHF, HTN, CKD, hypothyriod, and sleep apnea. Pulmonary was consulted for SOB. Plan: A: HFpEF Hx of COPD on charts but patient denies smoking history Uncontrolled Blood sugars P: Continue Duoneb PRN Continue Pulmicort q12 Continue Tessalon 200 mg PO BID Prednisone changed to 20 mg PO daily Continue Ceftaroline 600 mg Lasix 40mg IV daily Metolazone 5mg po daily Further medical management as per primary D/C likely today
--- NOTE | 2018-05-27 04:36 | DS ---
HISTORY OF PRESENT ILLNESS: A 72-year-old female was brought in with shortness of breath, generalized edema, and cellulitis of both the legs. Chest x-ray showed pulmonary vascular congestion. Physical exam showed pulmonary congestion also. Wound on the leg had shown MRSA. She was seen and evaluated by Dr. Sandhu, Infectious Disease provider relations consultant followed by Dr. Silva in Nephrology and pulmonary consultation with Dr. Scruggs. She does have significant bronchospasm, treated with IV steroids. She has improved now. Apparently, weight has been unchanged to 228 pounds and last one was 223 pounds which is not reliable. Edema has significantly improved. Chest x-ray has cleared. Physical exam shows clear lungs. Today's creatinine is 1.4. At this point, we will cut back the Lasix to 40 mg p.o. twice a day. P.o. and IV steroid has been discontinued and we place her on Advair 250/50 two puffs twice a day. She will resume her p.o. medications at home including Micardis, Lasix, and she will also resume her insulin. Currently, she is on Levemir 20 units twice a day. She will follow up with insurance legal assistant. The last creatinine is 1.4 and repeat Chem-7 will be obtained in one week time. She has good urine output. Cardiac workup had shown normal LV systolic function, LV diastolic dysfunction grade I, no significant valvular heart disease, and normal coronary arteries. Compliance with the medications and exercise has been recommended and physical therapy at home. FINAL DIAGNOSES: 1. Congestive heart failure, diastolic in nature. 2. Hypertension. 3. Diabetes mellitus. 4. Chronic kidney disease. She will follow up with insurance legal assistant and financial sales consultant as an outpatient along with myself. Care of plan was explained to the patient. She will be treated with the Bactroban for local applications. Wilson Bishop MD
== END 2018-05-26 13:45 | disposition home or self-care (01) | DRG 291 ==
LOC: C.ER 18:28 → C.9E 20:38 → C.5S 21:27
PROVIDERS: ADMIT Internal Medicine Cardiovascular Disease; ATTEND Internal Medicine Cardiovascular Disease
DX: I13.0 Hypertensive heart and chronic kidney disease with heart failure and stage 1 through stage 4 chronic kidney disease, or unspecified chronic kidney disease (principal); I50.33 Acute on chronic diastolic (congestive) heart failure; L02.415 Cutaneous abscess of right lower limb; E11.622 Type 2 diabetes mellitus with other skin ulcer; L97.919 Non-pressure chronic ulcer of unspecified part of right lower leg with unspecified severity; L03.115 Cellulitis of right lower limb; L97.929 Non-pressure chronic ulcer of unspecified part of left lower leg with unspecified severity; L02.416 Cutaneous abscess of left lower limb; L03.116 Cellulitis of left lower limb; E11.22 Type 2 diabetes mellitus with diabetic chronic kidney disease; E11.65 Type 2 diabetes mellitus with hyperglycemia; N18.3 Chronic kidney disease, stage 3 (moderate); E11.51 Type 2 diabetes mellitus with diabetic peripheral angiopathy without gangrene; B95.62 Methicillin resistant Staphylococcus aureus infection as the cause of diseases classified elsewhere; E87.5 Hyperkalemia; I25.10 Atherosclerotic heart disease of native coronary artery without angina pectoris; E03.9 Hypothyroidism, unspecified; I48.91 Unspecified atrial fibrillation; I87.2 Venous insufficiency (chronic) (peripheral); J44.9 Chronic obstructive pulmonary disease, unspecified; J98.01 Acute bronchospasm; M19.90 Unspecified osteoarthritis, unspecified site; G47.30 Sleep apnea, unspecified; Z79.4 Long term (current) use of insulin; Z90.49 Acquired absence of other specified parts of digestive tract